=== PATIENT | female | born 1935 | race Caucasian/White ===

== ENCOUNTER → 2020-01-24 09:23 | Outpatient (CLI) | payer MEDICARE, SELFPAY ==
--- NOTE | ~2020-01-24 | MM_ITS ---
EXAMINATION: MM screening chris BI w yvette HISTORY: Screening mammogram TECHNIQUE: Craniocaudal and mediolateral oblique 3-D tomosynthesis images were obtained and synthetic 2-D images were generated. CAD analysis was submitted and interpreted. COMPARISON: 01/20/2019, 01/17/2018, 01/15/2017 bilateral digital screening mammogram examinations BREAST PARENCHYMAL COMPOSITION: There are scattered areas of fibroglandular density. FINDINGS: There is no evidence of suspicious mass, calcification, or architectural distortion to sugg est malignancy in either breast. There has been no suspicious interval change. IMPRESSION: 1. No mammographic evidence of malignancy. 2. Recommend routine screening mammography in one year. BI-RADS Category 1: Negative Reviewed, dictated and finalized at location A.
== END ==
PROVIDERS: PCP Family Medicine; Visit Provider Family Medicine
DX: Z12.31 Encounter for screening mammogram for malignant neoplasm of breast (principal)
CPT/HCPCS: 77063; 77067

== ENCOUNTER 2021-01-13 09:03 | Outpatient (CLI) | payer MEDICARE, SELFPAY | END 2021-01-13 09:04 | disposition home or self-care (01) | LOC: ANHCOVIDVC 09:03 | PROVIDERS: PCP Family Medicine | DX: Z23 Encounter for immunization (principal) | CPT/HCPCS: 0001A; 91300 ==

== ENCOUNTER 2021-02-03 09:01 | Outpatient (CLI) | payer MEDICARE, SELFPAY | END 2021-02-03 09:02 | disposition home or self-care (01) | LOC: ANHCOVIDVC 09:01 | DX: Z23 Encounter for immunization (principal) | CPT/HCPCS: 0002A; 91300 ==

== ENCOUNTER → 2021-03-10 10:09 | Outpatient (CLI) | payer MEDICARE, SELFPAY ==
--- NOTE | ~2021-03-10 | MM_ITS ---
EXAMINATION: MM screening chris BI w yvette HISTORY: Screening mammogram TECHNIQUE: Craniocaudal and mediolateral oblique 3-D tomosynthesis images were obtained and synthetic 2-D images were generated. CAD analysis was submitted and interpreted. COMPARISON: 01/24/2020, 01/20/2019, 01/17/2018, 04/2017 bilateral digital screening mammogram examinat ions BREAST PARENCHYMAL COMPOSITION: There are scattered areas of fibroglandular density. FINDINGS: There is no evidence of suspicious mass, calcification, or architectural distortion to sugg est malignancy in either breast. There has been no suspicious interval change. IMPRESSION: 1. No mammographic evidence of malignancy. 2. Recommend routine screening mammography in one year. BI-RADS Category 1: Negative Reviewed, dictated and finalized at location A.
== END ==
PROVIDERS: PCP Family Medicine; Visit Provider Family Medicine
DX: Z12.31 Encounter for screening mammogram for malignant neoplasm of breast (principal)
CPT/HCPCS: 77063; 77067

== ENCOUNTER 2021-09-01 16:18 | Outpatient (CLI) | payer MEDICARE, SELFPAY ==
--- NOTE | ~2021-09-01 | US_ITS ---
US renal BI 09/01/2021 16:49 Procedure: Realtime transabdominal ultrasound of the kidneys and bladder. Indication: Chronic kidney disease Comparison: No prior studies for comparison. Findings: Renal echotexture is normal bilaterally without hydronephrosis, contour deforming mass or r enal calculus. The right kidney measures 7.8 cm and left kidney measures 8 cm. Bladder within normal limits. Impression: 1: Unremarkable renal ultrasound. No stones, masses or hydronephrosis. Reviewed, dictated and finalized at location B. Impression: 1: Unremarkable renal ultrasound. No stones, masses or hydronephrosis.
== END 2021-09-01 16:19 | disposition home or self-care (01) ==
LOC: ANHIMG 16:31
PROVIDERS: PCP Family Medicine; Visit Provider Internal Medicine Nephrology
DX: N18.4 Chronic kidney disease, stage 4 (severe) (principal)
CPT/HCPCS: 76775

== ENCOUNTER 2021-11-24 17:12 | Inpatient (IN) | payer MEDICARE, SELFPAY ==
[2021-11-24] VITALS (35 sets, daily range): BP systolic 82–124; BP diastolic 41–105; PULSE 81–121; RESP 15–35; TEMP 36.9–39.4; O2SAT 87–97
--- NOTE | ~2021-11-24 | XR_ITS ---
EXAMINATION: XR chest 1V portable EXAM DATE: 11/26/2021 14:17 INDICATION: Shortness of breath. TECHNIQUE: Portable AP frontal chest x-ray was obtained. Comparison is made to prior examination from 12/11/2021. FINDINGS: Right hilar masslike opacity, pneumonia and/or cancer. There is patchy basilar edema or pne umonia. Mild cardiac megaly. Chronic hyperinflation. No pneumothorax. Right apical capping. The bones are osteopenic. There are bony degenerative changes. There is aortic arteriosclerosis. IMPRESSION: Moderate right, small left airspace disease, edema and/or pneumonia. Right hilar malignan cy not excludable. Follow-up to resolution to exclude underlying chronic process. Reviewed, dictated and finalized at location G. WAREHOUSE WORKER IMPRESSION: Moderate right, small left airspace disease, edema and/or pneumonia . Right hilar malignancy not excludable. Follow-up to resolution to exclude und erlying chronic process.
--- NOTE | ~2021-11-24 | XR_ITS ---
XR chest 2V DATE: 11/24/2021 17:38 INDICATION: Hypertension. Weakness. History of pulmonary embolism. TECHNIQUE: AP and lateral views COMPARISON: 04/29/2018 two-view chest FINDINGS: There is patchy consolidation in the right mid and lower lung zones and to a lesser extent left mid and lower lung zones. Minimal blunting of the right costophrenic angle is chronic. Cardiomegaly. Aortic calcification, ectasia. Right rib cage deformity suggesting prior thoracotomy. Diffuse osteopenia. Chronic prominent anterior wedging and loss of height of a lower thoracic vertebr al body. IMPRESSION: Bilateral mid and lower lung infiltrates, right greater than left, suggesting bilateral p neumonia. Aspiration is an additional consideration. Reviewed, dictated and finalized at location J. T RUNNER IMPRESSION: Bilateral mid and lower lung infiltrates, right greater than left, suggesting bilateral pneumonia. Aspiration is an additional consideration.
--- NOTE | ~2021-11-24 | US_ITS ---
EXAMINATION: US renal BI DATE: 11/25/2021 11:39 INDICATION: Acute on chronic renal failure TECHNIQUE: Multiple ultrasound grayscale images of the kidneys were obtained. COMPARISON: None. FINDINGS: The right kidney measures 8.0 x 3.8 x 4.3 cm. The left kidney measures 8.1 x 4.1 x 3.7 cm. Mild bilat eral renal cortical atrophy with normal echogenicity. There is no hydronephrosis in either kidney. N o stones identified. The partially decompressed bladder is unremarkable. IMPRESSION: 1. Likely age-related mild bilateral renal atrophy. Otherwise normal kidneys without hydronephrosis. Reviewed, dictated and finalized at location A. LLE DUPLICATING MACHINE OPERATOR IMPRESSION: 1. Likely age-related mild bilateral renal atrophy. Otherwise normal kidneys w ithout hydronephrosis.
--- NOTE | 2021-11-24 17:23 | ECG_ITS ---
Measurements Intervals [place] Rate: 99 P: 57 WA: 136 QRS: -34 QRSD: 133 T: 104 QT: 341 QTc: 439 Interpretive Statements SINUS OR ECTOPIC ATRIAL RHYTHM LEFT AXIS DEVIATION LEFT BUNDLE BRANCH BLOCK BASELINE ARTIFACT- I, II, III, AVR, AVL, V2 ABNORMAL ECG Electronically Signed On 11-24-2021 20:28:26 PRECINCT COMMANDING OFFICER by Jagjit Pan D.O.
--- NOTE | 2021-11-24 17:51 | ED.WEAKNESS ---
HPI - Weakness General Chief complaint: Weakness Stated complaint: WEAKNESS Time Seen by Provider: 11/24/21 17:24 Source: patient and RN notes reviewed Mode of arrival: EMS Limitations: no limitations History of Present Illness HPI Narrative: This is an 86 year old female with history of hypertension who presents from home for evaluation of weakness. Patient states her family called EMS because they thought she was confused. Patient is oriented x 3. She states she has been nausea and weak for 2 days. She reports poor appetite so she is not eating much. She states she is drinking fluid. She has cough but denies chest pain or shortness of breath. She also denies abdominal pain but she reports chronic diarrhea. She had a fever during triage but she is unsure if she was running a fever at home. Related Data Allergies Allergy/AdvReac Type Severity Reaction Status Date / Time calcitonin Allergy Intermediate eye itch Verified 10/19/21 09:35 and swelling mirabegron [From Myrbetriq] Allergy Intermediate swelling Verified 10/19/21 09:57 alendronate sodium Allergy Mild unknown Verified 10/19/21 09:35 Penicillins Allergy Mild hives Verified 10/19/21 09:35 risedronate sodium Allergy Mild unknown Verified 10/19/21 09:35 ciprofloxacin Allergy Unknown joint aches Verified 10/19/21 09:35 Review of Systems Review of Systems: All systems reviewed & are unremarkable except as noted in HPI and below PMFSH Past Medical History Medical History (Updated 11/24/21 @ 23:07 by Bethany Mendoza MD) Benign essential HTN HX: anticoagulation Osteoporosis Pulmonary embolism Surgical History Surgical History History of appendectomy Hx of cataract surgery S/P cholecystectomy Family History Family History Mother Cerebrovascular accident, Onset Age: 83 Patient's mother is Father Family history of coronary artery disease, Onset Age: 79 Patient's father is Social History Social History (Updated 11/24/21 @ 23:05 by Saundra Devlin NP) Social History: The patient lives home alone and she has 1 child. 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 She is . She quit smoking many years ago. She does not use any alcohol marijuana or illicit drugs. Code status full code Smoking status: Former smoker Second hand tobacco smoke exposure: No Additional smoking assessment comments: 40 to 50 years ago Alcohol intake: never Substance use: never Substance use type: does not use Gender identity (if verbalized by the patient): Female Sexual Orientation (if Verbalized by the Patient): Straight or Heterosexual Spiritual care concerns: No Exam Const: General: no acute distress and alert Orientation/consciousness: patient oriented x3 HENMT: Head: normocephalic and atraumatic Face and sinus: face symmetric Mouth: Yes lip normal and Yes dry mucous membranes Eyes: Pupils: Equal, round and reactive pupils present EOM: EOMs intact bilaterally Neck: Neck: normal visual inspection Chest: Chest palpation & inspection: normal inspection of the chest Resp: Effort & Inspection: normal respiratory effort, not labored, no retractions and not tachypneic Auscultation: rhonchi (right) and lung sounds not diminished Cardio: Rate: tachycardic Rhythm: regular rhythm Heart sounds: no murmurs GI: GI Palp: Yes Soft to palpation, No Tenderness to palpation present (GI) and No Guarding due to palpation present (GI) Auscultation: normal bowel sounds Back/Spine/Pelvis: Back: no CVA tenderness Skin: General skin exam: normal color Rashes: no rashes Neuro: General: patient oriented x3, moves all extremities and CN's II-XI intact bilaterally Psych: Mental Status: mental status grossly normal Affect: normal affect Course Reevaluation(s) Reevaluation #1:
[2021-11-24 17:57] LABS: Alveolar/Arterial O2 Gradient 69.5 mmHg; Base Excess ABG -5.5 mEq/l (+/-2.0); Carboxyhemoglobin 0.3 % THb (0-2.0); Fractional Inspired Oxygen 21 %; Methemoglobin ABG 0.1 %THb (0-1.5); Modified Allen's Test Pass; Oxygen Content ABG 14.3 %vol (16.0-22.0); Oxyhemoglobin 87.5 % THb (90.0-100.0); PCO2 ABG 25.1 mmHg (35.0-45.0); PO2 ABG 50.2 mmHg (80.0-100.0); PO2 FiO2 Ratio Arterial Blood 2.39 %; Reduced Hemoglobin 12.1 %THb (0-5.0); Site Drawn LEFT RADIAL; Total Hemoglobin 11.6 g/dL (12.0-18.0); pH ABG 7.449 (7.350-7.450)
[2021-11-24 17:58] LABS: Device ROOM AIR
[2021-11-24] MEDS: SODIUM CHLORIDE 0.9% IV 1,000 ML 999 ML IV CONT ×2 (18:26→21:25)
[2021-11-24 18:29] LABS: Basophils Absolute Auto 0.1 K/mm3 (0.0-0.1); Basophils Percent Auto 0.3 % (0.2-1.2); Eosinophils Percent Auto 0.2 % (0-4.4); Immature Granulocyte Absolute 0.09 K/mm3 (0.00-0.031); Immature Granulocyte Percent A 0.6 % (0-0.5); Lymphocytes Absolute Auto 1.07 K/mm3 (0.9-3.2); Mean Corpuscular HGB Conc 32.4 g/dl (32-36); Mean Corpuscular Hemoglobin 29.8 pg (26-34); Mean Corpuscular Volume 92.1 fl (80-100); Mean Platelet Volume 11.3 fl (7.4-10.4); Monocytes Absolute Auto 0.9 K/mm3 (0.1-0.6); Monocytes Percent Auto 6.1 % (2.6-8.5); Neutrophils Percent Auto 85.8 % (45.5-73.1); Platelet Count Result 143 k/mm3 (150-375); Red Blood Count 3.69 M/mm3 (4.2-5.4); White Blood Count 15.2 K/mm3 (4.5-10.0)
[2021-11-24 18:38] LABS: Lactic Acid Reflex 1.1 mmol/L (0.7-2.1)
[2021-11-24 18:39] LABS: Prothrombin Time 13.4 Seconds (11.1-14.7)
[2021-11-24 18:40] LABS: Alanine Aminotransferase 36 U/L (4-35); Albumin Level 3.8 g/dL (3.5-5.1); Alkaline Phosphatase 87 U/L (38-126); Anion Gap 12 mmol/L (8-16); Aspartate Amino Transferase 76 U/L (14-36); Bilirubin,Total 0.4 mg/dL (0.2-1.3); Blood Urea Nitrogen 56 mg/dL (7-17); Calcium 8.7 mg/dL (8.4-10.2); Carbon Dioxide 18 mmol/L (22-30); Chloride 101 mmol/L (98-107); Estimated CRCL calculation 13 ml/min; Estimated Glomerular Filt Rate 16; Glucose 144 mg/dL (65-110); Potassium 4.6 mmol/L (3.4-5.0); Sodium 131 mmol/L (137-145)
[2021-11-24 18:45] LABS: Add Urine Microscopic? YES; Appearance Urine Cloudy (Clear); Bacteria Urine Trace /hpf; Bilirubin Urine Negative (Negative); Blood Urine 2+ (Negative); Color Urine Yellow (Yellow); Glucose Urine UA Negative (Negative); Ketones Urine Negative (Negative); Leukocyte Esterase Ur Trace LEU/UL (Negative); Mucus Urine Rare /lpf; Nitrate Urine Negative (Negative); Protein Urine 1+ mg/dL (Negative); Specific Grav Ur 1.014 (1.001-1.035); Squamous Epithelial Cell Urine Occasional /hpf (Few); Urobilinogen Urine Negative mg/dL (<2.0)
--- NOTE | 2021-11-24 19:24 | PC.NURSE ---
Report to DB Lo She assumed care of pt. at this time.
[2021-11-24 19:38] LABS: SARS-CoV-2 RNA PCR Negative
[2021-11-24 20:25] LABS: NT Pro B Type Natriuretic Pept 6100 pg/mL (5-100)
--- NOTE | 2021-11-24 20:54 | PM.IMHP ---
H&P: HPI History of Present Illness Date/Time: 11/24/21 20:54 this is an 86-year-old female patient who resides at home alone. She has a history of hypertension. The patient has been fully vaccinated for COVID-19 along with a booster. She stated she has not been exposed to any other positive COVID people. The patient came from home to be evaluated for weakness. The family stated that the called EMS because they thought she was confused. Patient was alert orientated x3 when she arrived. The patient has not been eating well but continues to drink fluids. She has a cough but she denies any fever chills or shortness of breath. She has no abdominal pain and has chronic diarrhea. Patient was not aware that she was running a fever. Her white count is 15.2. H&H is 11.0 in 34.0. Chest x-ray was read as bilateral mid and lower lung infiltrates, right greater than left, suggesting bilateral pneumonia. Aspiration is an additional consideration. The patient has multiple allergies and was started on Levaquin. The patient has a pending COVID PCR. Patient was placed on oxygen at 2 L per nasal cannula. Her respiratory rate was initially 35 and came down 18. Patient's temperature was initially 39.4. Her creatinine today was noted to be 2.8 with a baseline of around 1.7 she has a estimated GFR 16 today. Her CRP is 29.0 and her BNP is 6100. The patient is being admitted to observation status on the date of service of 11/24/2021. Chief Complaint: Confusion Review of Systems Review of Systems: All systems reviewed & are unremarkable except as noted in HPI and below Constitutional: Constitutional: Reports as per HPI and Reports no additional constitutional complaints Eyes: Eyes: Reports as per HPI and Reports no additional eye complaints ENT: Reports system reviewed and no additional complaints, except as documented and Reports Normal hearing present Cardiovascular: Cardiovascular: Reports no additional cardiovascular complaints Respiratory: Respiratory: Reports no additional respiratory complaints and Reports no additional respiratory complaints Gastrointestinal: Gastrointestinal: Reports as per HPI and Reports no additional gastrointestinal complaints Musculoskeletal: Musculoskeletal: Reports no additional musculoskeletal complaints Integumentary/Breasts: Skin/Breast: Reports system reviewed and no additional complaints, except as docu and Reports as per HPI Neurologic: Reports system reviewed and no additional complaints, except as documented, Reports as per HPI and Reports Normal hearing present Psychiatric: Psychiatric: Reports no additional psychiatric complaints and Reports as per HPI Endocrine: Endocrine: Reports no additional endocrine complaints Hematologic/Lymphatic: Hematologic/Lymphatic: Reports no additional hematologic/lymphatic complaints Allergic/Immunologic: Allergic/Immunologic: Reports no additional allergic/immunologic complaints [facility] Past Medical History Medical History (Updated 11/24/21 @ 23:07 by Bethany Mendoza MD) Benign essential HTN HX: anticoagulation Osteoporosis Pulmonary embolism Surgical History Surgical History History of appendectomy Hx of cataract surgery S/P cholecystectomy Family History Family History Mother Cerebrovascular accident, Onset Age: 83 Patient's mother is Father Family history of coronary artery disease, Onset Age: 79 Patient's father is Social History Social History (Updated 11/24/21 @ 23:05 by Saundra Devlin NP) Social History: The patient lives home alone and she has 1 child. 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 She is . She quit smoking many years ago. She does not use any alcohol marijuana or illicit drugs. Code status full code Smoking status: Former smoker Second hand tobacco
[2021-11-24] MEDS: SODIUM CHLORIDE 0.9% IV 500 ML IV CONT (23:41)
[2021-11-25] VITALS (27 sets, daily range): BP systolic 90–124; BP diastolic 41–76; PULSE 68–178; RESP 20–23; TEMP 33.8–37.2; O2SAT 91–96; BMI 20.7
--- NOTE | 2021-11-25 | ECHO_ITS ---
Patient Info Name: Mariya Shah Age: 86 years : 1935 Gender: Female Ht: 67 in Wt: 132 lbs BSA: 1.68 m2 HR: 68 bpm BP: 120 / 51 mmHg Heart Rhythm: Sinus Rhythm Technical Quality: Fair Exam Date: 11/25/2021 12:26 PM Exam Location: [facility] Pulmonary Patient Status: Inpatient Admit Date: 11/24/2021 Staff Ordering Physician: Eric Partida MD Rubber Moulding Machine Operator: Ruba Hyde RDCS Attending Provider: Marie Hannon DO Exam Type: CA echo doppler color flow Study Info Indications - paf, sepsis Complete two-dimensional, color flow and Doppler transthoracic echocardiogram is performed. Summary 1. Complete two-dimensional, color flow and Doppler transthoracic echocardiogram is performed. 2. Normal left ventricular size with mild concentric hypertrophy and sigmoid septum of the elderly. Good left ventricular systolic function with no segmental wall motion abnormalities. Ejection fraction 60-65%. Grade 2 diastolic dysfunction is present. 3. Left atrial chamber dimension is mildly enlarged. 4. There is moderate mitral annular calcification with mild mitral valve regurgitation. 5. There is mild tricuspid valve regurgitation. 6. Mild pulmonary hypertension, estimated pulmonary arterial systolic pressure is 45 mmHg. 7. Normal sinus rhythm. Left Ventricle Left ventricular chamber dimension is normal. Left ventricular systolic function is normal, estimated at 60-65%. There is mildly increased left ventricular wall thickness. Left ventricular septal wall motion is normal. The left ventricular diastolic function is grade II diastolic dysfunction. Right Ventricle Right ventricular chamber dimension is normal. Right ventricular systolic function is normal. Left Atria Left atrial chamber dimension is mildly enlarged. Right Atria Right atrial chamber dimension is normal. Aortic Valve The aortic valve is trileaflet. There is moderate aortic valve sclerosis. There is no aortic valve stenosis. There is no aortic valve regurgitation. Pulmonic Valve The pulmonic valve is normal. There is no pulmonic valve stenosis. There is trace pulmonic regurgitation. Mitral Valve The mitral valve has thickened leaflets. There is no mitral valve stenosis. There is moderate mitral annular calcification with mild mitral valve regurgitation. The mitral valve annulus is moderately calcified. Tricuspid Valve The tricuspid valve leaflets are normal. There is no significant tricuspid valve stenosis. There is mild tricuspid valve regurgitation. Mild pulmonary hypertension, estimated pulmonary arterial systolic pressure is 45 mmHg. Pericardium/Pleural The pericardium appears normal. There is no pericardial effusion. Inferior Vena Cava Normal inferior vena cava with >50% collapse upon inspiration consistent with Empty right atrial pressure, 10 mmHg. Aorta The aortic root size at the sinus of Valsalva is normal. The prox ascending aorta size is normal. Left Ventricular Outflow Tract Name Value Normal LVOT 2D LVOT Diameter 1.8 cm LVOT Doppler LVOT Peak Gradient 8 mmHg
--- NOTE | 2021-11-25 00:29 | ADMGEN ---
This patient, Mariya Shah, was admitted to IMU Room 202-01 at 0020. Patient/family oriented to hospital policies and general routines including ID bracelet, bed and alarms, visiting hours, pain management, procedures, bathroom and other care routines, personal items, smoking policy, room service/diet, and visiting hours. Information on how to activate the Rapid Response Team has been discussed. Patient/Family are encouraged to report perceived risks to care and to ask questions if they do not understand what they are told or what they should do.
[2021-11-25] MEDS: SODIUM CHLORIDE 0.9% IV 1,000 ML 125 ML IV CONT (02:00)
--- NOTE | 2021-11-25 04:26 | PC.NURSE ---
checked on patient an hour and half after starting fluids. patient was tachypnic, with audible wheezing. patient is on 2 l nc, while laying flat, patients o2 sat dropped to mid 80's. while sitting in a 45 degree angle she was in low 90's. dr langston is aware and ordered decrease in patients fluids and a cheetah.
[2021-11-25] MEDS: SODIUM CHLORIDE 0.9% IV 1,000 ML 75 ML IV CONT (04:30)
[2021-11-25 05:30] LABS: Basophils Percent Auto 0.2 % (0.2-1.2); Hemoglobin 9.9 g/dL (12.0-15.0); Immature Granulocyte Absolute 0.08 K/mm3 (0.00-0.031); Immature Granulocyte Percent A 0.6 % (0-0.5); Immature Platelet Fraction Pct 7.6 % (0.9-11.2); Lymphocytes Absolute Auto 0.85 K/mm3 (0.9-3.2); Lymphocytes Percent Auto 6.7 % (18.3-44.2); Mean Corpuscular HGB Conc 31.9 g/dl (32-36); Mean Corpuscular Hemoglobin 29.6 pg (26-34); Mean Corpuscular Volume 92.5 fl (80-100); Mean Platelet Volume 11.3 fl (7.4-10.4); Monocytes Absolute Auto 0.6 K/mm3 (0.1-0.6); Monocytes Percent Auto 4.6 % (2.6-8.5); Neutrophils Absolute Auto 11.2 K/mm3 (1.3-6.7); Neutrophils Percent Auto 87.9 % (45.5-73.1); Platelet Count Result 121 k/mm3 (150-375); Red Blood Count 3.35 M/mm3 (4.2-5.4); Red Cell Distribution Width 13.1 % (11.5-14.5); White Blood Count 12.8 K/mm3 (4.5-10.0)
--- NOTE | 2021-11-25 05:39 | ECG_ITS ---
Measurements Intervals [place] Rate: 141 P: ME: 0 QRS: -42 QRSD: 133 T: 115 QT: 305 QTc: 468 Interpretive Statements ATRIAL FIBRILLATION WITH RAPID VENTRICULAR RESPONSE LEFT AXIS DEVIATION LEFT BUNDLE BRANCH BLOCK BASELINE ARTIFACT- I, III, AVR, AVL, AVF, V1-V6 ABNORMAL ECG Electronically Signed On 11-25-2021 8:19:55 LIDAR ANALYST by Jagjit Pan D.O.
[2021-11-25 05:45] LABS: Lactic Acid Reflex 1.5 mmol/L (0.7-2.1)
[2021-11-25 06:15] LABS: Alanine Aminotransferase 37 U/L (4-35); Alkaline Phosphatase 58 U/L (38-126); Anion Gap 12 mmol/L (8-16); Aspartate Amino Transferase 85 U/L (14-36); Bilirubin,Total 0.5 mg/dL (0.2-1.3); Blood Urea Nitrogen 54 mg/dL (7-17); Calcium 7.4 mg/dL (8.4-10.2); Carbon Dioxide 15 mmol/L (22-30); Chloride 108 mmol/L (98-107); Estimated CRCL calculation 15 ml/min; Estimated Glomerular Filt Rate 19; Glucose 106 mg/dL (65-110); Lactate Dehydrogenase 741 U/L (313-618); Magnesium 1.6 mg/dL (1.6-2.3); Potassium 4.3 mmol/L (3.4-5.0); Sodium 135 mmol/L (137-145)
[2021-11-25] MEDS: AMIODARONE 150 MG/D5W 100 ML 150 MG/100 ML BAG 600 MG IV CONT ×2 (06:32→13:25)
--- NOTE | 2021-11-25 08:32 | PM.CNCAR ---
Assessment and Plan Assessment and plan (1) Atrial fibrillation with RVR: Code(s): I48.91 - Unspecified atrial fibrillation Status: Acute Assessment and Plan: 86-year-old female with past medical history of hypertension, chronic LBBB. Patient admitted to the hospital with generalized weakness, confusion and poor appetite. She was found to have leukocytosis with left shift, pulmonary infiltrates suggestive of pneumonia. COVID-19 PCR negative. Patient had brief episodes of atrial fibrillation with RVR, received IV amiodarone with pentecostalism of sinus rhythm. Currently in sinus rhythm/sinus tachycardia. Sinus tachycardia appropriate in the setting of infection. -continue to monitor on telemetry for recurrent AFib. Patient's AFib is likely driven by underlying lung infection. -if patient has recurrent, sustained atrial fibrillation during this hospitalization, then initiate on low-dose apixaban 2.5 mg p.o. b.i.d. (dosing based on age and renal function) -outpatient ambulatory crystal mounter will be placed after infection resolves to determine if patient has recurrent AFib. For now, will continue to monitor. -check echocardiogram with Doppler to rule out any major structural heart disease. (2) Pneumonia: Code(s): J18.9 - Pneumonia, unspecified organism Status: Acute Assessment and Plan: Appropriate antibiotics as per primary team. 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 Management as per primary team. No significant volume overload at present. History of Present Illness History of Present Illness Consult date/time: 11/25/21 08:32 DATE OF CONSULT: 11/25/2021 REASON FOR CONSULT: AFib with RVR REQUESTING PHYSICIAN:Marie Hannon DO CHIEF COMPLAINT: Weakness HPI: 86-year-old female with past medical history of hypertension, chronic LBBB. Patient was brought to [facility] on 11/24/2021 with complaints of generalized weakness and confusion. She reports decreased appetite and subjective fever and chills. She denies any known prior cardiac history including clinical [place], angina, heart failure or any known arrhythmias. At baseline, she is sedentary lifestyle at home. She denies any chest pain or shortness for breath for level activity. Patient was found to have leukocytosis with left shift and renal failure. COVID-19 PCR negative. Chest x-ray showed Bilateral mid and lower lung infiltrates, right greater than left, suggesting bilateral pneumonia. Patient has been receiving antibiotics. Initial EKG on my personal evaluation showed ectopic atrial rhythm, left bundle branch block. Subsequent EKG showed atrial fibrillation with RVR, ventricular rate 141 beats per minute, LBBB. Patient received IV amiodarone with pentecostalism of sinus rhythm. BNP 6100. At the time of evaluation, patient was in sinus tachycardia with heart rate is in 100s. Previous echocardiogram from 01/31/2018 showed normal LV systolic function, grade 1 diastolic dysfunction, mild MR, AR, TR. Reason For Visit: severe sepsis, pneumonia Review of Systems Review of Systems: General: Positive for subjective fever, fatigue Psychological: Negative for anxiety, depression Ophthalmic: negative for loss of vision ENT: Negative for epistaxis, headaches Allergy and immunology: Negative for hives, nasal congestion Hematologic and lymphatic: Negative for overt blee
--- NOTE | 2021-11-25 10:50 | PM.IMPN ---
Progress Note: A&P Assessment and Plan (1) Severe sepsis: Code(s): A41.9 - Sepsis, unspecified organism; R65.20 - Severe sepsis without septic shock Status: Acute Assessment and Plan: Treated with IV fluid IV antibiotic Secondary to pneumonia Follow culture results. (2) Pneumonia: Code(s): J18.9 - Pneumonia, unspecified organism Status: Acute Assessment and Plan: Sputum culture Blood culture Repeat chest x-ray in a.m. IV antibiotics (3) Acute on chronic renal failure: Code(s): N17.9 - Acute kidney failure, unspecified; N18.9 - Chronic kidney disease, unspecified Status: Acute Assessment and Plan: Continue with IV fluids and will do a renal ultrasound. Patient could be dehydrated or could be related to her sepsis. Added IV bicarb on 11/25/2021 if no improvement will get Nephrology valve (4) Suspected COVID-19 virus infection: Code(s): Z20.822 - Contact with and (suspected) exposure to COVID-19 Status: Acute Assessment and Plan: COVID-19 was ruled out (5) Benign essential HTN: Code(s): I10 - Essential (primary) hypertension Status: Acute Assessment and Plan: Hold blood pressure medicine at this time as the patient is hypotensive. Also she is in acute on chronic renal failure. (6) Atrial fibrillation with RVR: Code(s): I48.91 - Unspecified atrial fibrillation Status: Acute Assessment and Plan: cardiology consult treat underlying sepsis Subjective Date/time seen: 11/25/21 10:50 Interval history: 86 years old male with past medical history of hypertension osteoporosis pulmonary embolism on chronic anticoagulation presented to the hospital with generalized weakness cough and shortness of breath was found to have sepsis pneumonia also patient has AFib with RVR cardiology was consulted patient had acute and of chronic renal failure admitted to the hospital for further evaluation and treatment Patient feels weak she is short of breath on oxygen Patient denies fever headache chest I am seeing the patient for shortness of breath Exam Narrative: Alert Chest bilateral crackles decreased air entry bilateral Abdomen nontender nondistended CVS S1 + S2 Lower negative extremity edema Objective Data Vital Signs Vital Signs: Vital Signs - 24 hr 11/24/21 17:19 11/24/21 17:20 11/24/21 17:30 Temperature 103.0 F H Pulse Rate 121 H 105 H 88 Respiratory Rate 20 22 H Blood Pressure 113/51 L 113/51 L Pulse Oximetry 87 L 91 11/24/21 17:38 11/24/21 17:39 11/24/21 17:45 Temperature Pulse Rate 111 H 107 H 101 H Respiratory Rate 21 H 25 H 25 H Blood Pressure 124/105 H Pulse Oximetry 92 93 91 11/24/21 18:00 11/24/21 18:02 11/24/21 18:15 Temperature Pulse Rate 107 H 98 98 Respiratory Rate 27 H 33 H 30 H Blood Pressure 105/84 Pulse Oximetry 92 93 97 11/24/21 18:30 11/24/21 18:32 11/24/21 18:38 Temperature Pulse Rate 103 H 103 H 97 Respiratory Rate 22 H 20 19 Blood Pressure 118/53 L 118/53 L Pulse Oximetry 96 91 96 11/24/21 18:45 11/24/21 19:00 11/24/21 19:02 Temperature Pulse Rate 97 85 92 Respiratory Rate 20 21 H 22 H Blood Pressure 89/45 L Pulse Oximetry 94 96 96 11/24/21 19:07 11/24/21 19:15 11/24/21 19:18 Temperature 100.0 F H Pulse Rate 104 H 90 90 Respiratory Rate 18 23 H 17 Blood Pressure 104/52 L 104/52 L Pulse Oximetry 93 93 94 11/24/21 19:30 11/24/21 19:31 11/24/21 19:45 Temperature Pulse Rate 88 88 87 Respiratory Rate 18 20 19 Blood Pressure 92/41 L Pulse Oximetry 92 93 95 11/24/21 20:00 11/24/21 20:01 11/24/21 20:15 Temperature Pulse Rate 86 86 83 Respiratory Rate 22 H 18 18 Blood Pressure 92/43 L Pulse Oximetry 95 95 95 11/24/21 20:30 11/24/21 20:31 11/24/21 20:45 Temperature Pulse Rate 84 85 82 Respiratory Rate 17 15 16 Blood Pressure 92/45 L Pulse Oximetry 95 96 97 11/24/21 21:00 11/24/21 21:01 01
[2021-11-25 11:54] LABS: Lactic Acid Reflex 0.8 mmol/L (0.7-2.1)
[2021-11-25] MEDS: METOPROLOL SUCCINATE EXT REL 25 MG TABCR PO (11:55)
--- NOTE | 2021-11-25 13:10 | ECG_ITS ---
Measurements Intervals [place] Rate: 151 P: [place]: 0 QRS: -35 QRSD: 126 T: 131 QT: 291 QTc: 462 Interpretive Statements ATRIAL FIBRILLATION WITH RAPID VENTRICULAR RESPONSE LEFT AXIS DEVIATION LEFT BUNDLE BRANCH BLOCK BASELINE ARTIFACT- I, II, III, AVR, AVL, AVF, V4-V6 ABNORMAL ECG Electronically Signed On 11-25-2021 14:11:15 TRAINING AND DEVELOPMENT MANAGER by Jagjit Pan D.O.
--- NOTE | 2021-11-25 13:32 | PM.EVENT ---
Event Note Event Note Event Note: Noted that patient was in Afib RVR on tele monitor, rate 160's - 180's. Proceeded to patient bedside, patient diaphoretic and short of breath. Ordered amio bolus now and drip per protocol. EKG obtained and confirmed AF RVR, LBBB, LAD. IV lopressor also available for persistent tachycardia if BP tolerates. Labs being obtained, will review results when available.
--- NOTE | 2021-11-25 13:32 | PCOTNOTE ---
Attempted to see pt. for occupational therapy evaluation. Pt. HR is currently not safe for participation, per nurse. Pt. may tolerate later today.
[2021-11-25] MEDS: AMIODARONE 360 MG/D5W 200 ML 360 MG/200 ML BAG 33.33 MG IV CONT (13:33)
--- NOTE | 2021-11-25 15:28 | PCPTNOTE ---
Per nurse Keen, pt's HR is too high to participate in skilled therapy at this date and to try again tomorrow.
[2021-11-25] MEDS: SODIUM BICARBONATE 8.4% 150 MEQ in DEXTROSE 5% 1,000 ML 950 ML 100 MEQ IV CONT (15:47)
[2021-11-25] MEDS: METOPROLOL TARTRATE INJ 5 MG/5 ML VIAL IV PUSH (16:34)
[2021-11-25] MEDS: AMIODARONE 360 MG/D5W 200 ML 360 MG/200 ML BAG 16.67 MG IV CONT (19:55)
[2021-11-26] VITALS (23 sets, daily range): BP systolic 97–112; BP diastolic 49–58; PULSE 79–130; RESP 22–24; TEMP 35.9–37.1; O2SAT 89–96
--- NOTE | 2021-11-26 02:22 | ECG_ITS ---
Measurements Intervals [place] Rate: 151 P: [place]: 0 QRS: -35 QRSD: 126 T: 131 QT: 291 QTc: 462 Interpretive Statements ATRIAL FIBRILLATION WITH RAPID VENTRICULAR RESPONSE LEFT AXIS DEVIATION LEFT BUNDLE BRANCH BLOCK BASELINE ARTIFACT- I, II, III, AVR, AVL, AVF, V4-V6 ABNORMAL ECG Electronically Signed On 11-26-2021 14:05:37 INSTALLER TECHNICIAN by Jagjit Pan D.O.
[2021-11-26] MEDS: SODIUM BICARBONATE 8.4% 150 MEQ in DEXTROSE 5% 1,000 ML 950 ML 100 MEQ IV CONT ×2 (02:38→17:01)
--- NOTE | 2021-11-26 02:58 | ECG_ITS ---
Measurements Intervals [place] Rate: 87 P: 90 [place]: 161 QRS: -33 QRSD: 140 T: 105 QT: 395 QTc: 477 Interpretive Statements SINUS RHYTHM LEFT AXIS DEVIATION LEFT BUNDLE BRANCH BLOCK BASELINE ARTIFACT- I ABNORMAL ECG Electronically Signed On 11-26-2021 14:06:13 POULTRY SLAUGHTERER by Jagjit Pan D.O.
[2021-11-26] MEDS: AMIODARONE 360 MG/D5W 200 ML 360 MG/200 ML BAG 16.67 MG IV CONT ×2 (07:24→22:12)
--- NOTE | 2021-11-26 07:47 | PCPTNOTE ---
Attempted PT evaluation this date however RN requested to hold for today due to increased HR at rest.
[2021-11-26] MEDS: METOPROLOL SUCCINATE EXT REL 25 MG TABCR PO (08:50)
--- NOTE | 2021-11-26 09:28 | PM.IMPN ---
Progress Note: A&P Assessment and Plan (1) Severe sepsis: Code(s): A41.9 - Sepsis, unspecified organism; R65.20 - Severe sepsis without septic shock Status: Acute Assessment and Plan: Treated with IV fluid IV antibiotic Secondary to pneumonia Follow culture results. Follow CBC and CMP from today (2) Pneumonia: Code(s): J18.9 - Pneumonia, unspecified organism Status: Acute Assessment and Plan: Sputum culture Blood culture Pending repeat chest x-ray IV antibiotics (3) Acute on chronic renal failure: Code(s): N17.9 - Acute kidney failure, unspecified; N18.9 - Chronic kidney disease, unspecified Status: Acute Assessment and Plan: Continue with IV fluids a. Patient could be dehydrated or could be related to her sepsis. Added IV bicarb on 11/25/2021 if no improvement will get Nephrology evaluation (4) Suspected COVID-19 virus infection: Code(s): Z20.822 - Contact with and (suspected) exposure to COVID-19 Status: Acute Assessment and Plan: COVID-19 was ruled out (5) Benign essential HTN: Code(s): I10 - Essential (primary) hypertension Status: Acute Assessment and Plan: Hold blood pressure medicine at this time as the patient is hypotensive. Also she is in acute on chronic renal failure. (6) Atrial fibrillation with RVR: Code(s): I48.91 - Unspecified atrial fibrillation Status: Acute Assessment and Plan: cardiology consult treat underlying sepsis Uncontrolled amiodarone drip Subjective Date/time seen: 11/26/21 09:28 Interval history: 86 years old male with past medical history of hypertension osteoporosis pulmonary embolism on chronic anticoagulation presented to the hospital with generalized weakness cough and shortness of breath was found to have sepsis pneumonia also patient has AFib with RVR cardiology was consulted patient had acute and of chronic renal failure admitted to the hospital for further evaluation and treatment On 11/26/2021 patient developed episodes of AFib with RVR started on amiodarone drip Patient feels weak she is short of breath on oxygen Patient denies fever headache chest I am seeing the patient for shortness of breath Exam Narrative: Alert Chest bilateral crackles decreased air entry bilateral Abdomen nontender nondistended CVS S1 + S2 Lower negative extremity edema Objective Data Vital Signs Vital Signs: Vital Signs - 24 hr 11/25/21 10:00 11/25/21 11:55 11/25/21 12:00 Temperature 92.8 F L Pulse Rate 128 H 102 H 108 H Respiratory Rate 20 Blood Pressure 115/41 L Pulse Oximetry 96 11/25/21 13:00 11/25/21 13:25 11/25/21 13:30 Temperature Pulse Rate 178 H Respiratory Rate Blood Pressure 112/62 Pulse Oximetry 92 11/25/21 13:33 11/25/21 14:00 11/25/21 16:00 Temperature 98.7 F Pulse Rate 128 H 127 H 118 H Respiratory Rate 22 H Blood Pressure 124/76 Pulse Oximetry 91 11/25/21 16:34 11/25/21 18:00 11/25/21 19:38 Temperature 98.8 F Pulse Rate 158 H 126 H 120 H Respiratory Rate 20 Blood Pressure 91/57 L Pulse Oximetry 91 11/25/21 19:55 11/25/21 20:00 11/25/21 22:00 Temperature Pulse Rate 121 H 118 H 104 H Respiratory Rate Blood Pressure Pulse Oximetry 92 11/26/21 00:00 11/26/21 01:08 11/26/21 02:00 Temperature 98.6 F Pulse Rate 107 H 96 85 Respiratory Rate 23 H Blood Pressure 103/49 L Pulse Oximetry 92 11/26/21 03:09 11/26/21 04:00 11/26/21 05:37 Temperature 98.7 F Pulse Rate 86 81 80 Respiratory Rate 22 H Blood Pressure 110/56 L Pulse Oximetry 95 93 11/26/21 05:45 11/26/21 06:42 11/26/21 07:24 Temperature Pulse Rate 106 H Respiratory Rate Blood Pressure Pulse Oximetry 89 L 96 11/26/21 08:16 11/26/21 08:50 Temperature 96.9 F L Pulse Rate 114 H 129 H Respiratory Rate 24 H Blood Pressure 111/57 L Pulse Oximetry 92 Intake/Output Intake
[2021-11-26 10:11] LABS: Basophils Percent Auto 0.4 % (0.2-1.2); Eosinophils Percent Auto 0.1 % (0-4.4); Hematocrit 32.7 % (37.0-47.0); Immature Granulocyte Absolute 0.13 K/mm3 (0.00-0.031); Immature Granulocyte Percent A 1.2 % (0-0.5); Lymphocytes Absolute Auto 0.89 K/mm3 (0.9-3.2); Lymphocytes Percent Auto 7.9 % (18.3-44.2); Mean Corpuscular HGB Conc 33.6 g/dl (32-36); Mean Corpuscular Hemoglobin 29.7 pg (26-34); Mean Corpuscular Volume 88.4 fl (80-100); Monocytes Absolute Auto 0.5 K/mm3 (0.1-0.6); Monocytes Percent Auto 4.2 % (2.6-8.5); Neutrophils Absolute Auto 9.8 K/mm3 (1.3-6.7); Neutrophils Percent Auto 86.2 % (45.5-73.1); Platelet Count Result 162 k/mm3 (150-375); Red Cell Distribution Width 13.2 % (11.5-14.5); White Blood Count 11.3 K/mm3 (4.5-10.0)
[2021-11-26 10:26] LABS: Alanine Aminotransferase 45 U/L (4-35); Albumin Level 2.8 g/dL (3.5-5.1); Alkaline Phosphatase 78 U/L (38-126); Anion Gap 11 mmol/L (8-16); Aspartate Amino Transferase 88 U/L (14-36); Bilirubin,Total 0.2 mg/dL (0.2-1.3); Blood Urea Nitrogen 56 mg/dL (7-17); Calcium 7.6 mg/dL (8.4-10.2); Carbon Dioxide 21 mmol/L (22-30); Chloride 98 mmol/L (98-107); Estimated CRCL calculation 15 ml/min; Estimated Glomerular Filt Rate 19; Glucose 149 mg/dL (65-110); Magnesium 1.6 mg/dL (1.6-2.3); Potassium 3.3 mmol/L (3.4-5.0); Sodium 130 mmol/L (137-145)
[2021-11-26] MEDS: levoFLOXacin 500 MG/D5W 100 ML 500 MG/100 ML BAG 66.67 MG IVPB (12:01)
--- NOTE | 2021-11-26 19:15 | PM.PNCARD ---
Progress Note: A&P Assessment and Plan (1) Paroxysmal atrial fibrillation: Code(s): I48.0 - Paroxysmal atrial fibrillation Status: Acute Assessment and Plan: Continues to have paroxysmal atrial fibrillation but less symptomatic. Echo showed normal systolic function; does have diastolic dysfunction. Getting IV fluids 100 cc an hour; concern she may get volume overloaded at this point. 3700 cc's in today. Consider reducing IV fluids. Continue IV amiodarone; if no further episodes will switch to p.o. tomorrow. Start Eliquis 2.5 mg b.i.d., reviewed with patient (2) Pneumonia: Code(s): J18.9 - Pneumonia, unspecified organism Status: Acute Assessment and Plan: O2 needs have increased but patient is feeling better. Treatment per hospitalist. (3) Hypokalemia: Code(s): E87.6 - Hypokalemia Status: Acute Assessment and Plan: Will supplement. 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 Blood pressure on the low sign. Subjective Date/time seen: 11/26/21 19:15 Interval history: Follow-up for new onset PAF, RVR Patient was admitted with pneumonia, COVID negative. She has been having episodes of paroxysmal atrial fibrillation. She has chronic kidney disease as well. Date of service 11/26/2021: Yesterday she had more AFib RVR and felt terrible; she was started on amiodarone drip and IV Lopressor. She converted to sinus rhythm. This morning she went back in AFib RVR for about 5 hours and has converted to sinus rhythm. Patient says she feels better, less coughing and shortness of breath. Systolic blood pressure 97-111 mmHg. O2 needs have increased from 2 liters/minute to 5 liters/minute nasal cannula. Remains on amiodarone drip at 0.5 milligrams/minute. Echo and chest x-ray as below. Review of Systems Constitutional: Constitutional: Reports fatigue and Reports weakness Eyes: Eyes: Reports no additional eye complaints ENT: Denies epistaxis Cardiovascular: Cardiovascular: Denies chest pain, Denies pedal edema, Denies lightheadedness and Denies palpitations Respiratory: Respiratory: Reports cough, Reports dyspnea and Reports dyspnea on exertion Gastrointestinal: Gastrointestinal: Denies abdominal pain Comments: Anorexia. Denies a history of GI bleeding. Genitourinary: Genitourinary: Denies hematuria Musculoskeletal: Musculoskeletal: Denies back pain Integumentary/Breasts: Skin/Breast: Denies rash Neurologic: Denies confusion Psychiatric: Psychiatric: Denies behavioral changes Exam Narrative: Older lady in bed, frequent dry cough, no respiratory distress, alert, conversant and pleasant. Const: General: comfortable and no acute distress HENMT: General nose exam: no epistaxis Eyes: EOM: EOMs intact bilaterally Neck: Neck: supple Resp: Effort & Inspection: normal respiratory effort Auscultation: crackles and rhonchi Other: Course rales and rhonchi particular in the right lung half way up, left lung is fairly clear Cardio: Rate: regular rate Rhythm: regular rhythm Heart sounds: no murmurs GI: GI Palp: Yes Soft to palpation and No Tenderness to palpation present (GI) Skin: General skin exam: no rashes or lesions noted Neuro: Cognition (Neuro): normal cognition Speech: n
[2021-11-26] MEDS: APIXABAN 2.5 MG TABLET PO (22:13)
[2021-11-26] MEDS: POTASSIUM CHLORIDE 20 MEQ TABLET PO (22:13)
[2021-11-27] VITALS (19 sets, daily range): BP systolic 111–129; BP diastolic 48–60; PULSE 72–106; RESP 18–24; TEMP 36.3–37.2; O2SAT 92–96
[2021-11-27 05:16] LABS: Basophils Percent Auto 0.2 % (0.2-1.2); Eosinophils Percent Auto 0.3 % (0-4.4); Hematocrit 27.9 % (37.0-47.0); Immature Granulocyte Absolute 0.11 K/mm3 (0.00-0.031); Immature Granulocyte Percent A 1.3 % (0-0.5); Lymphocytes Absolute Auto 0.84 K/mm3 (0.9-3.2); Lymphocytes Percent Auto 9.7 % (18.3-44.2); Mean Corpuscular HGB Conc 35.8 g/dl (32-36); Mean Corpuscular Hemoglobin 30.3 pg (26-34); Mean Corpuscular Volume 84.5 fl (80-100); Mean Platelet Volume 12.3 fl (7.4-10.4); Monocytes Absolute Auto 0.5 K/mm3 (0.1-0.6); Monocytes Percent Auto 5.9 % (2.6-8.5); Neutrophils Absolute Auto 7.2 K/mm3 (1.3-6.7); Neutrophils Percent Auto 82.6 % (45.5-73.1); Platelet Count Result 158 k/mm3 (150-375); Red Cell Distribution Width 12.3 % (11.5-14.5); White Blood Count 8.7 K/mm3 (4.5-10.0)
[2021-11-27 07:39] LABS: Alanine Aminotransferase 43 U/L (4-35); Albumin Level 2.6 g/dL (3.5-5.1); Alkaline Phosphatase 80 U/L (38-126); Anion Gap 7 mmol/L (8-16); Aspartate Amino Transferase 76 U/L (14-36); Bilirubin,Total 0.3 mg/dL (0.2-1.3); Blood Urea Nitrogen 56 mg/dL (7-17); Calcium 7.7 mg/dL (8.4-10.2); Carbon Dioxide 28 mmol/L (22-30); Chloride 94 mmol/L (98-107); Estimated CRCL calculation 15 ml/min; Estimated Glomerular Filt Rate 19; Glucose 117 mg/dL (65-110); Magnesium 1.6 mg/dL (1.6-2.3); Potassium 3.1 mmol/L (3.4-5.0); Sodium 129 mmol/L (137-145)
--- NOTE | 2021-11-27 09:13 | PM.IMPN ---
Progress Note: A&P Assessment and Plan (1) Severe sepsis: Code(s): A41.9 - Sepsis, unspecified organism; R65.20 - Severe sepsis without septic shock Status: Acute Assessment and Plan: Treated with IV fluid DC IV fluid patient is showing sign of fluid overload IV antibiotic DC IV vancomycin DC IV cefepime 11/27/2021 continue Levaquin Secondary to pneumonia Follow culture results. (2) Pneumonia: Code(s): J18.9 - Pneumonia, unspecified organism Status: Acute Assessment and Plan: As above Sputum culture Blood culture Pending repeat chest x-ray IV antibiotics (3) Acute on chronic renal failure: Code(s): N17.9 - Acute kidney failure, unspecified; N18.9 - Chronic kidney disease, unspecified Status: Acute Assessment and Plan: Continue with IV fluids a. Patient could be dehydrated or could be related to her sepsis. Added IV bicarb on 11/25/2021 Nephrology evaluation DC bicarb drip patient is developing signs of fluid overload (4) Suspected COVID-19 virus infection: Code(s): Z20.822 - Contact with and (suspected) exposure to COVID-19 Status: Acute Assessment and Plan: COVID-19 was ruled out (5) Benign essential HTN: Code(s): I10 - Essential (primary) hypertension Status: Acute Assessment and Plan: Hold blood pressure medicine at this time as the patient is hypotensive. Also she is in acute on chronic renal failure. (6) Atrial fibrillation with RVR: Code(s): I48.91 - Unspecified atrial fibrillation Status: Acute Assessment and Plan: cardiology consult treat underlying sepsis Status post amiodarone drip plan to switch to oral amiodarone on 11/27/2021 continue metoprolol pending cardiology final recommendation Subjective Date/time seen: 11/27/21 09:13 Interval history: 86 years old male with past medical history of hypertension osteoporosis pulmonary embolism on chronic anticoagulation presented to the hospital with generalized weakness cough and shortness of breath was found to have sepsis pneumonia also patient has AFib with RVR cardiology was consulted patient had acute and of chronic renal failure admitted to the hospital for further evaluation and treatment On 11/26/2021 patient developed episodes of AFib with RVR started on amiodarone drip Shortness of breath has significantly improved Patient has lower extremity edema IV fluid was DC the on 11/27/2021 Patient denies fever headache chest I am seeing the patient for shortness of breath Exam Narrative: Alert Chest bilateral crackles decreased air entry bilateral Abdomen nontender nondistended CVS S1 + S2 Lower negative extremity edema Objective Data Vital Signs Vital Signs: Vital Signs - 24 hr 11/26/21 10:00 11/26/21 12:00 11/26/21 12:16 Temperature 97.4 F L Pulse Rate 115 H 105 H 126 H Respiratory Rate 22 H Blood Pressure 99/52 L Pulse Oximetry 93 93 11/26/21 14:00 11/26/21 16:00 11/26/21 16:41 Temperature 96.6 F L Pulse Rate 87 85 88 Respiratory Rate 24 H Blood Pressure 97/54 L Pulse Oximetry 94 93 11/26/21 18:00 11/26/21 19:53 11/26/21 20:00 Temperature 97.6 F Pulse Rate 79 85 84 Respiratory Rate 23 H Blood Pressure 112/58 L Pulse Oximetry 96 11/26/21 22:00 11/26/21 22:12 11/27/21 00:00 Temperature 97.9 F Pulse Rate 89 87 80 Respiratory Rate 23 H Blood Pressure 117/49 L Pulse Oximetry 93 93 11/27/21 02:00 11/27/21 03:52 11/27/21 04:00 Temperature 98.9 F Pulse Rate 104 H 80 82 Respiratory Rate 24 H Blood Pressure 117/53 L Pulse Oximetry 95 95 11/27/21 06:00 11/27/21 08:22 Temperature 97.6 F Pulse Rate 88 103 H Respiratory Rate 18 Blood Pressure 125/52 L Pulse Oximetry 94 Intake/Output Intake/Output: Intake & Output 11/24/21 11/25/21 11/26/21 11/27/21 23:59 23:59 23:59 23:59 Intake Total 2250 920 4020 850 Output Total 300 900 600 250 Balance 1950 20 3420 60
[2021-11-27] MEDS: POTASSIUM CHLORIDE 20 MEQ TABLET 40 MEQ PO (09:46)
[2021-11-27] MEDS: METOPROLOL SUCCINATE EXT REL 25 MG TABCR PO (09:47)
[2021-11-27] MEDS: APIXABAN 2.5 MG TABLET PO ×2 (09:47→20:12)
--- NOTE | 2021-11-27 10:40 | PM.PNCARD ---
Progress Note: A&P Assessment and Plan (1) Paroxysmal atrial fibrillation: Code(s): I48.0 - Paroxysmal atrial fibrillation Status: Acute Assessment and Plan: New onset paroxysmal atrial fibrillation in the setting of acute pneumonia Echo showed normal systolic function; does have diastolic dysfunction. No further episodes of AFib for 24 hours; will change IV amiodarone to 400 mg p.o. b.i.d.. Check EKG in a.m.; she is also taking Levaquin which can contribute to QT prolongation. Continue Eliquis 2.5 mg b.i.d.. Continue metoprolol succinate 25 mg daily Patient is becoming a little anemic so will continue to follow H&H daily. No obvious bleeding. (2) Pneumonia: Code(s): J18.9 - Pneumonia, unspecified organism Status: Acute Assessment and Plan: O2 needs have increased but patient is feeling better. Treatment per hospitalist. (3) Hypokalemia: Code(s): E87.6 - Hypokalemia Status: Acute Assessment and Plan: Will supplement. 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 IV fluids are being discontinued. Subjective Date/time seen: 11/27/21 10:40 Interval history: Follow-up for new onset PAF, RVR Patient was admitted with pneumonia, COVID negative. She has been having episodes of paroxysmal atrial fibrillation. She has chronic kidney disease as well. Date of service 11/26/2021: Yesterday she had more AFib RVR and felt terrible; she was started on amiodarone drip and IV Lopressor. She converted to sinus rhythm. This morning she went back in AFib RVR for about 5 hours and has converted to sinus rhythm. Patient says she feels better, less coughing and shortness of breath. Systolic blood pressure 97-111 mmHg. O2 needs have increased from 2 liters/minute to 5 liters/minute nasal cannula. Remains on amiodarone drip at 0.5 milligrams/minute. Echo = nml LV fxn. Date of service 11/27/2021: Feeling much better, no shortness of breath when she moved from the bed to the chair. On 5 L nasal cannula. Telemetry shows patient has maintain NSR since yesterday. Had 4,000 cc's in yesterday IV. Review of Systems Constitutional: Constitutional: Reports fatigue and Denies weakness Eyes: Eyes: Reports no additional eye complaints ENT: Denies epistaxis Cardiovascular: Cardiovascular: Denies chest pain, Denies pedal edema, Denies lightheadedness, Denies palpitations, Reports dyspnea and Reports dyspnea on exertion Respiratory: Respiratory: Reports cough, Denies dyspnea and Denies dyspnea on exertion Gastrointestinal: Gastrointestinal: Denies abdominal pain, Denies melena and Denies hematochezia Comments: No bowel movement Genitourinary: Genitourinary: Denies hematuria Musculoskeletal: Musculoskeletal: Denies back pain Integumentary/Breasts: Skin/Breast: Denies rash Neurologic: Denies behavioral changes, Denies confusion and Reports weakness Psychiatric: Psychiatric: Denies behavioral changes and Denies confusion Endocrine: Endocrine: Reports fatigue and Denies palpitations Exam Narrative: Older lady up in chair, occasional dry cough, no respiratory distress, alert, conversant and pleasant. Const: General: comfortable and no acute distress; No confusion Orientation/consci
--- NOTE | 2021-11-27 10:45 | PM.CNNEP ---
Assessment and Plan Assessment and plan (1) Chronic kidney disease, stage 4 (severe): Code(s): N18.4 - Chronic kidney disease, stage 4 (severe) Status: Acute Assessment and Plan: the patient has chronic kidney disease stage 4. Her baseline creatinine is around 1.7-1.8 and her GFR runs in the high 20s. This is most likely due to her hypertension (2) Acute kidney injury: Code(s): N17.9 - Acute kidney failure, unspecified Status: Acute Assessment and Plan: The patient has acute kidney injury. She has pneumonia and so could have ATN from this. her blood pressure was also low on admission consistent with dehydration and pneumonia. I do not think she is dehydrated anymore although she was on admission. But the creatinine did not improve with fluid so I agree with discontinuing fluids. I am going to give her a couple of doses of diuretics because she is a bit dyspneic. Other causes include rhabdomyolysis, so we can check a CPK. Allergic interstitial nephritis would be unlikely could she is not on any new medications. Glomerulonephritis would be unlikely in this clinical scenario. I will get a renal ultrasound, and a CPK. Will give a couple of doses of diuretics and follow the patient. (3) Pneumonia: Code(s): J18.9 - Pneumonia, unspecified organism Status: Acute Assessment and Plan: The patient is on Levaquin. Temperature and white cell count are both better than on admission. (4) Hyperkalemia: Code(s): E87.5 - Hyperkalemia Status: Acute Assessment and Plan: resolved off of nonsteroidal anti-inflammatory agents (5) Benign essential HTN: Code(s): I10 - Essential (primary) hypertension Status: Acute Assessment and Plan: Blood pressure is still under good control. She is on metoprolol but her Felodipine and lisinopril have been held because of her low blood pressure. History of Present Illness Reason for Consult Consult date: 11/27/21 Chief Complaint Chief complaint: severe sepsis, pneumonia History of Present Illness Narrative: Mariya is a very pleasant 86-year-old lady who has multiple medical problems including chronic kidney disease stage IV with a baseline creatinine of around 1.6-1.8, hyperkalemia in the past which was due to Advil and has not been a problem since, hypertension, pulmonary embolism, osteoporosis, who came to the hospital because of confusion. She was seen in the emergency room. Her creatinine was higher than it usually is. She also had infiltrates on a chest x-ray. She was felt to have pneumonia and dehydration. She was admitted to the hospital. She was given IV fluids and antibiotics. Her confusion cleared and her pneumonia improved however she developed volume overload and her creatinine did not improve so renal consultation was requested. In addition her sodium level was low. The patient has had a cough for the last few days. No fevers at home. She is vaccinated and boosted. Her COVID test was negative. The patient has not been taking any more nonsteroidal anti-inflammatory agents. She has not started any new medications as an outpatient. She was not eating very well before admission but was drinking fluid. Review of Systems Constitutional: Constitutional: Reports no additional constitutional complaints Eyes: Eyes: Reports no additional eye complaints ENT: Reports system reviewed and no additional complaints, except as documented Cardiovascular: Cardiovascular: Reports no additional cardiovascular complaints Respiratory: Respiratory: Reports no additional respiratory complaints Gastrointestinal: Gastrointestinal: Reports no additional gastrointestinal complaints Genitourinary: Genitourinary: Reports no additional female genitourinary complaints Musculoskeletal: Musculoskeletal: Reports no additional musculoskeletal complaints Integumentary/Breasts: Skin/Breast:
[2021-11-27] MEDS: AMIODARONE HCL 200 MG TABLET 400 MG PO ×2 (11:21→16:45)
[2021-11-27 11:24] LABS: Creatine Kinase 78 U/L (30-135)
[2021-11-28] VITALS (16 sets, daily range): BP systolic 107–132; BP diastolic 47–69; PULSE 74–87; RESP 14–20; TEMP 35.9–36.6; O2SAT 93–96
[2021-11-28 05:06] LABS: Basophils Percent Auto 0.5 % (0.2-1.2); Eosinophils Absolute Auto 0.1 K/mm3 (0-0.3); Eosinophils Percent Auto 1.2 % (0-4.4); Hematocrit 29.2 % (37.0-47.0); Hemoglobin 10.1 g/dL (12.0-15.0); Immature Granulocyte Absolute 0.16 K/mm3 (0.00-0.031); Immature Granulocyte Percent A 1.9 % (0-0.5); Lymphocytes Percent Auto 17.9 % (18.3-44.2); Mean Corpuscular HGB Conc 34.6 g/dl (32-36); Mean Corpuscular Hemoglobin 29.4 pg (26-34); Mean Corpuscular Volume 84.9 fl (80-100); Mean Platelet Volume 12.2 fl (7.4-10.4); Monocytes Absolute Auto 0.6 K/mm3 (0.1-0.6); Monocytes Percent Auto 7.6 % (2.6-8.5); Neutrophils Absolute Auto 5.9 K/mm3 (1.3-6.7); Neutrophils Percent Auto 70.9 % (45.5-73.1); Platelet Count Result 181 k/mm3 (150-375); Red Blood Count 3.44 M/mm3 (4.2-5.4); Red Cell Distribution Width 12.4 % (11.5-14.5); White Blood Count 8.4 K/mm3 (4.5-10.0)
[2021-11-28 05:15] LABS: Alanine Aminotransferase 39 U/L (4-35); Albumin Level 2.6 g/dL (3.5-5.1); Alkaline Phosphatase 84 U/L (38-126); Anion Gap 7 mmol/L (8-16); Aspartate Amino Transferase 70 U/L (14-36); Bilirubin,Total 0.3 mg/dL (0.2-1.3); Blood Urea Nitrogen 59 mg/dL (7-17); Calcium 8.1 mg/dL (8.4-10.2); Carbon Dioxide 29 mmol/L (22-30); Chloride 96 mmol/L (98-107); Estimated CRCL calculation 14 ml/min; Estimated Glomerular Filt Rate 18; Glucose 103 mg/dL (65-110); Magnesium 1.7 mg/dL (1.6-2.3); Potassium 3.8 mmol/L (3.4-5.0); Sodium 132 mmol/L (137-145)
--- NOTE | 2021-11-28 08:00 | ECG_ITS ---
Measurements Intervals [place] Rate: 80 P: 80 HI: 174 QRS: -20 QRSD: 144 T: 82 QT: 430 QTc: 496 Interpretive Statements SINUS RHYTHM LEFT BUNDLE BRANCH BLOCK BASELINE ARTIFACT- V4-V5 ABNORMAL ECG Electronically Signed On 11-28-2021 15:23:40 [employer]ATCH COMMAND[employer] by Jagjit Pan D.O.
[2021-11-28] MEDS: AMIODARONE HCL 200 MG TABLET 400 MG PO ×2 (08:32→17:01)
[2021-11-28] MEDS: METOPROLOL SUCCINATE EXT REL 25 MG TABCR PO (08:33)
[2021-11-28] MEDS: APIXABAN 2.5 MG TABLET PO ×2 (08:33→20:26)
--- NOTE | 2021-11-28 09:57 | PM.PNCARD ---
Progress Note: A&P Assessment and Plan (1) Paroxysmal atrial fibrillation: Code(s): I48.0 - Paroxysmal atrial fibrillation Status: Acute Assessment and Plan: New onset paroxysmal atrial fibrillation in the setting of acute pneumonia Echo showed normal systolic function; does have diastolic dysfunction. No further episodes of AFib for 24 hours; continue oral amiodarone 400 mg p.o. b.i.d.. Continue Eliquis 2.5 mg b.i.d.. Continue metoprolol succinate 25 mg daily Patient is becoming a little anemic so will continue to follow H&H daily. No obvious bleeding. (2) Pneumonia: Code(s): J18.9 - Pneumonia, unspecified organism Status: Acute Assessment and Plan: O2 needs have increased but patient is feeling better. Treatment per hospitalist. (3) Hypokalemia: Code(s): E87.6 - Hypokalemia Status: Acute Assessment and Plan: Will supplement. 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 (5) Hypomagnesemia: Code(s): E83.42 - Hypomagnesemia Status: Acute Assessment and Plan: Will replace with Magnesium 2 g IV x1 Subjective Date/time seen: 11/28/21 09:57 Interval history: Follow-up for new onset PAF, RVR Patient was admitted with pneumonia, COVID negative. She has been having episodes of paroxysmal atrial fibrillation. She has chronic kidney disease as well. Date of service 11/26/2021: Yesterday she had more AFib RVR and felt terrible; she was started on amiodarone drip and IV Lopressor. She converted to sinus rhythm. This morning she went back in AFib RVR for about 5 hours and has converted to sinus rhythm. Patient says she feels better, less coughing and shortness of breath. Systolic blood pressure 97-111 mmHg. O2 needs have increased from 2 liters/minute to 5 liters/minute nasal cannula. Remains on amiodarone drip at 0.5 milligrams/minute. Echo = nml LV fxn. Date of service 11/27/2021: Feeling much better, no shortness of breath when she moved from the bed to the chair. On 5 L nasal cannula. Telemetry shows patient has maintain NSR since yesterday. Had 4,000 cc's in yesterday IV. Date of service 11/28/2021: Continues to feel better. No chest pain. No shortness of breath. Feels better now than she has since admission. Review of Systems Constitutional: Constitutional: Reports fatigue and Denies weakness Eyes: Eyes: Reports no additional eye complaints ENT: Denies epistaxis Cardiovascular: Cardiovascular: Denies chest pain, Denies pedal edema, Denies lightheadedness, Denies palpitations, Denies dyspnea and Denies dyspnea on exertion Respiratory: Respiratory: Reports cough, Denies dyspnea and Denies dyspnea on exertion Gastrointestinal: Gastrointestinal: Denies abdominal pain, Denies melena and Denies hematochezia Genitourinary: Genitourinary: Denies hematuria Musculoskeletal: Musculoskeletal: Denies back pain Integumentary/Breasts: Skin/Breast: Denies rash Neurologic: Denies behavioral changes, Denies confusion and Denies weakness Psychiatric: Psychiatric: Denies behavioral changes and Denies confusion Endocrine: Endocrine: Reports fatigue and Denies palpitations Hematologic/Lymphatic: Hematologic/Lymphatic: Denies easy bruising
--- NOTE | 2021-11-28 11:05 | PM.IMPN ---
Progress Note: A&P Assessment and Plan (1) Severe sepsis: Code(s): A41.9 - Sepsis, unspecified organism; R65.20 - Severe sepsis without septic shock Status: Acute Assessment and Plan: Treated with IV fluid DC IV fluid patient is showing sign of fluid overload IV antibiotic DC IV vancomycin DC IV cefepime 11/27/2021 continue Levaquin Secondary to pneumonia Follow culture results. Continue to wean off oxygen (2) Pneumonia: Code(s): J18.9 - Pneumonia, unspecified organism Status: Acute Assessment and Plan: As above Sputum culture Blood culture Improved IV antibiotics (3) Acute on chronic renal failure: Code(s): N17.9 - Acute kidney failure, unspecified; N18.9 - Chronic kidney disease, unspecified Status: Acute Assessment and Plan: Continue with IV fluids a. Patient could be dehydrated or could be related to her sepsis. Added IV bicarb on 11/25/2021 Nephrology evaluation DC bicarb drip patient is developing signs of fluid overload (4) Suspected COVID-19 virus infection: Code(s): Z20.822 - Contact with and (suspected) exposure to COVID-19 Status: Acute Assessment and Plan: COVID-19 was ruled out (5) Benign essential HTN: Code(s): I10 - Essential (primary) hypertension Status: Acute Assessment and Plan: Hold blood pressure medicine at this time as the patient is hypotensive. Also she is in acute on chronic renal failure. (6) Atrial fibrillation with RVR: Code(s): I48.91 - Unspecified atrial fibrillation Status: Acute Assessment and Plan: cardiology consult treat underlying sepsis Status post amiodarone drip switch to oral amiodarone on 11/27/2021 continue metoprolol Continue to wean off oxygen anticipate discharge on Sunday home with home health patient lives alone with her lives son next door Subjective Date/time seen: 11/28/21 11:05 Interval history: 86 years old male with past medical history of hypertension osteoporosis pulmonary embolism on chronic anticoagulation presented to the hospital with generalized weakness cough and shortness of breath was found to have sepsis pneumonia also patient has AFib with RVR cardiology was consulted patient had acute and of chronic renal failure admitted to the hospital for further evaluation and treatment On 11/26/2021 patient developed episodes of AFib with RVR started on amiodarone drip Shortness of breath has significantly improved Patient has lower extremity edema IV fluid was DC the on 11/27/2021 AFib is under control currently on metoprolol and Eliquis cardiology follow-up Wean off oxygen Expect discharge on Sunday Patient denies fever headache chest I am seeing the patient for shortness of breath Exam Narrative: Alert Chest bilateral crackles decreased air entry bilateral Abdomen nontender nondistended CVS S1 + S2 Lower negative extremity edema Objective Data Vital Signs Vital Signs: Vital Signs - 24 hr 11/27/21 11:21 11/27/21 12:00 11/27/21 13:17 Temperature 97.4 F L Pulse Rate 84 87 81 Respiratory Rate 20 Blood Pressure 122/53 L Pulse Oximetry 95 96 11/27/21 14:00 11/27/21 16:00 11/27/21 16:45 Temperature Pulse Rate 83 85 81 Respiratory Rate Blood Pressure Pulse Oximetry 92 11/27/21 17:09 11/27/21 18:00 11/27/21 20:00 Temperature 98.0 F 98.5 F Pulse Rate 82 106 H 89 Respiratory Rate 22 H 20 Blood Pressure 129/60 111/48 L Pulse Oximetry 94 94 11/27/21 22:00 11/28/21 00:00 11/28/21 02:00 Temperature 96.6 F L Pulse Rate 77 86 74 Respiratory Rate 14 Blood Pressure 116/47 L Pulse Oximetry 93 11/28/21 04:00 11/28/21 06:00 11/28/21 08:32 Temperature 97.1 F L Pulse Rate 75 87 84 Respiratory Rate 16 Blood Pressure 122/53 L Pulse Oximetry 93 11/28/21 08:33 11/28/21 08:50 Temperature 97.6 F Pulse Rate 86 85 Respiratory Rate 20 Blood Pressure 121/50 L Pulse Oximetry
[2021-11-28] MEDS: MAGNESIUM SULF 2 GM/WATER 50ML 2 GM/50 ML BAG IVPB (11:41)
[2021-11-28] MEDS: levoFLOXacin 500 MG/D5W 100 ML 500 MG/100 ML BAG 66.67 MG IVPB (11:42)
--- NOTE | 2021-11-28 12:36 | PC.NURSE ---
Report given to Paulina [address] [place] [address].
--- NOTE | 2021-11-28 13:40 | PC.NURSE ---
This patient, Mariya Shah, was transferred to [facility] on 11/28/21 at 1340. Personal belongings sent with patient. Report given to Paulina. Appropriate documentation sent with patient.
--- NOTE | 2021-11-28 17:25 | PM.PNNEP ---
Progress Note: A&P Assessment and Plan (1) Chronic kidney disease, stage 4 (severe): Code(s): N18.4 - Chronic kidney disease, stage 4 (severe) Status: Acute Assessment and Plan: the patient has chronic kidney disease stage 4. Her baseline creatinine is around 1.7-1.8 and her GFR runs in the high 20s. This is most likely due to her hypertension (2) Acute kidney injury: Code(s): N17.9 - Acute kidney failure, unspecified Status: Acute Assessment and Plan: The patient has acute kidney injury. Renal ultrasound shows bilateral small kidneys. CPK is normal. she probably has ATN from pneumonia and hypotension. Her pneumonia seems better. Her blood pressure is better. (3) Pneumonia: Code(s): J18.9 - Pneumonia, unspecified organism Status: Acute Assessment and Plan: The patient is on Levaquin. Temperature and white cell count doing well (4) Hyperkalemia: Code(s): E87.5 - Hyperkalemia Status: Acute Assessment and Plan: resolved off of nonsteroidal anti-inflammatory agents (5) Benign essential HTN: Code(s): I10 - Essential (primary) hypertension Status: Acute Assessment and Plan: Blood pressure is still under good control. She is on metoprolol alone. Subjective Date/time seen: 11/28/21 17:25 Interval history: Patient feels better today. Her cough is better less short of breath. But still has some residual dyspnea. Review of Systems Cardiovascular: Cardiovascular: Reports no additional cardiovascular complaints Respiratory: Respiratory: Reports no additional respiratory complaints Gastrointestinal: Gastrointestinal: Reports no additional gastrointestinal complaints Genitourinary: Genitourinary: Reports no additional female genitourinary complaints Exam Narrative: WDWN in NAD skin no rash head ncat lungs Coarse breath sounds bilaterally. Right greater than left cor reg no rub abd BS+ nontender and soft ext no edema. Objective Data Vital Signs Vital Signs: Vital Signs - 24 hr 11/27/21 18:00 11/27/21 20:00 11/27/21 22:00 Temperature 36.9 C Pulse Rate 106 H 89 77 Respiratory Rate 20 Blood Pressure 111/48 L Pulse Oximetry 94 11/28/21 00:00 11/28/21 02:00 11/28/21 04:00 Temperature 35.9 C L 36.2 C L Pulse Rate 86 74 75 Respiratory Rate 14 16 Blood Pressure 116/47 L 122/53 L Pulse Oximetry 93 93 11/28/21 06:00 11/28/21 08:00 11/28/21 08:32 Temperature Pulse Rate 87 86 84 Respiratory Rate 20 Blood Pressure Pulse Oximetry 94 11/28/21 08:33 11/28/21 08:50 11/28/21 10:00 Temperature 36.4 C Pulse Rate 86 85 82 Respiratory Rate 20 Blood Pressure 121/50 L Pulse Oximetry 94 11/28/21 12:00 11/28/21 12:39 11/28/21 14:12 Temperature 36.3 C L 36.3 C L Pulse Rate 86 85 83 Respiratory Rate 20 16 Blood Pressure 107/47 L 124/49 L Pulse Oximetry 95 94 11/28/21 16:00 Temperature Pulse Rate 75 Respiratory Rate Blood Pressure Pulse Oximetry Intake/Output Intake/Output: Intake & Output 11/25/21 11/26/21 11/27/21 11/28/21 23:59 23:59 23:59 23:59 Intake Total 920 4020 1970 680 Output Total 900 600 600 Balance 20 3420 1370 680 Meds/Results Medications: Active Medications Generic Name Dose Route Start Last Admin Trade Name Freq PRN Reason Stop Dose Admin Albuterol 2 puff 11/24/21 23:06 Albuterol Sulfate (*Sp) Aerosol 1 Puff INHALATION Q6HRT PRN Shortness Of Breath Amiodarone HCl 400 mg 11/27/21 11:00 11/28/21 17:01 Amiodarone Hcl 200 Mg Tablet PO 400 mg BID HARJINDER Administration Apixaban 2.5 mg 11/26/21 21:00 11/28/21 08:33 Apixaban 2.5 Mg Tablet PO 2.5 mg Q12HR HARJINDER Administration Levofloxacin/Dextrose 500 mg in 100 mls @ 66.667 mls/hr 11/26/21 12:00 11/28/21 11:42 Levaquin 500 Mg/D5w 100 Ml IVPB 66.67 mls/hr Q48H HARJINDER Administration Metoprolol Succi
[2021-11-28 20:11] LABS: Sodium Urine Random 18 meq/L
[2021-11-28 20:14] LABS: Creatinine Urine 35.4 mg/dL; Total Protein Urine Random 26 mg/dL; Ur Ttl Prot Creatinine Ratio 0.73 mg/mg (0-0.20)
[2021-11-29] VITALS (15 sets, daily range): BP systolic 104–138; BP diastolic 44–59; PULSE 69–90; RESP 16–18; TEMP 36.1–36.9; O2SAT 90–97
[2021-11-29 05:44] LABS: Basophils Absolute Auto 0.1 K/mm3 (0.0-0.1); Basophils Percent Auto 0.7 % (0.2-1.2); Eosinophils Absolute Auto 0.2 K/mm3 (0-0.3); Eosinophils Percent Auto 2.2 % (0-4.4); Hematocrit 28.7 % (37.0-47.0); Hemoglobin 9.8 g/dL (12.0-15.0); Immature Granulocyte Absolute 0.13 K/mm3 (0.00-0.031); Immature Granulocyte Percent A 1.8 % (0-0.5); Lymphocytes Percent Auto 17.7 % (18.3-44.2); Mean Corpuscular HGB Conc 34.1 g/dl (32-36); Mean Corpuscular Hemoglobin 29.3 pg (26-34); Mean Corpuscular Volume 85.7 fl (80-100); Mean Platelet Volume 11.3 fl (7.4-10.4); Monocytes Absolute Auto 0.7 K/mm3 (0.1-0.6); Neutrophils Absolute Auto 5.1 K/mm3 (1.3-6.7); Neutrophils Percent Auto 68.6 % (45.5-73.1); Platelet Count Result 216 k/mm3 (150-375); Red Blood Count 3.35 M/mm3 (4.2-5.4); White Blood Count 7.4 K/mm3 (4.5-10.0)
[2021-11-29 06:10] LABS: Alanine Aminotransferase 41 U/L (4-35); Albumin Level 2.8 g/dL (3.5-5.1); Alkaline Phosphatase 70 U/L (38-126); Anion Gap 9 mmol/L (8-16); Aspartate Amino Transferase 83 U/L (14-36); Bilirubin,Total 0.6 mg/dL (0.2-1.3); Blood Urea Nitrogen 60 mg/dL (7-17); Calcium 8.2 mg/dL (8.4-10.2); Carbon Dioxide 30 mmol/L (22-30); Chloride 98 mmol/L (98-107); Estimated CRCL calculation 14 ml/min; Estimated Glomerular Filt Rate 18; Glucose 100 mg/dL (65-110); Magnesium 2.3 mg/dL (1.6-2.3); Potassium 4.8 mmol/L (3.4-5.0); Sodium 137 mmol/L (137-145)
--- NOTE | 2021-11-29 07:48 | PM.PNNEP ---
Progress Note: A&P Assessment and Plan (1) Chronic kidney disease, stage 4 (severe): Code(s): N18.4 - Chronic kidney disease, stage 4 (severe) Status: Acute Assessment and Plan: the patient has chronic kidney disease stage 4. Her baseline creatinine is around 1.7-1.8 and her GFR runs in the high 20s. This is most likely due to her hypertension (2) Acute kidney injury: Code(s): N17.9 - Acute kidney failure, unspecified Status: Acute Assessment and Plan: The patient has acute kidney injury. Renal ultrasound shows bilateral small kidneys. CPK is normal. she probably has ATN from pneumonia and hypotension. Her pneumonia seems better. Her blood pressure is better. Her creatinine is stable. She is making some urine. (3) Pneumonia: Code(s): J18.9 - Pneumonia, unspecified organism Status: Acute Assessment and Plan: The patient is on Levaquin. Temperature and white cell count doing well (4) Hyperkalemia: Code(s): E87.5 - Hyperkalemia Status: Acute Assessment and Plan: resolved off of nonsteroidal anti-inflammatory agents (5) Benign essential HTN: Code(s): I10 - Essential (primary) hypertension Status: Acute Assessment and Plan: Blood pressure is still under good control. She is on metoprolol alone. Subjective Date/time seen: 11/29/21 07:48 Interval history: Patient feels better today. Mildly short of breath. Exam Narrative: WDWN in NAD skin no rash head ncat lungs Coarse breath sounds bilaterally. Right greater than left cor reg no rub or gallop abd BS+ nontender and soft ext 1+ edema. Objective Data Vital Signs Vital Signs: Vital Signs - 24 hr 11/28/21 08:00 11/28/21 08:32 11/28/21 08:33 Temperature Pulse Rate 86 84 86 Respiratory Rate 20 Blood Pressure Pulse Oximetry 94 11/28/21 08:50 11/28/21 10:00 11/28/21 12:00 Temperature 36.4 C Pulse Rate 85 82 86 Respiratory Rate 20 Blood Pressure 121/50 L Pulse Oximetry 94 11/28/21 12:39 11/28/21 14:12 11/28/21 16:00 Temperature 36.3 C L 36.3 C L Pulse Rate 85 83 75 Respiratory Rate 20 16 Blood Pressure 107/47 L 124/49 L Pulse Oximetry 95 94 11/28/21 18:00 11/28/21 20:00 11/28/21 22:00 Temperature 36.6 C 36.3 C L Pulse Rate 81 79 77 Respiratory Rate 16 18 Blood Pressure 132/69 110/48 L Pulse Oximetry 95 96 96 11/29/21 00:00 11/29/21 02:00 11/29/21 04:00 Temperature 36.2 C L Pulse Rate 69 80 70 Respiratory Rate 16 Blood Pressure 138/56 L Pulse Oximetry 94 11/29/21 06:00 Temperature 36.1 C L Pulse Rate 78 Respiratory Rate 18 Blood Pressure 126/49 L Pulse Oximetry 96 Intake/Output Intake/Output: Intake & Output 11/26/21 11/27/21 11/28/21 11/29/21 23:59 23:59 23:59 23:59 Intake Total 4020 1970 950 600 Output Total 600 600 150 500 Balance 3420 1370 800 100 Meds/Results Medications: Active Medications Generic Name Dose Route Start Last Admin Trade Name Freq PRN Reason Stop Dose Admin Albuterol 2 puff 11/24/21 23:06 Albuterol Sulfate (*Sp) Aerosol 1 Puff INHALATION Q6HRT PRN Shortness Of Breath Amiodarone HCl 400 mg 11/27/21 11:00 11/28/21 17:01 Amiodarone Hcl 200 Mg Tablet PO 400 mg BID HARJINDER Administration Apixaban 2.5 mg 11/26/21 21:00 11/28/21 20:26 Apixaban 2.5 Mg Tablet PO 2.5 mg Q12HR HARJINDER Administration Levofloxacin/Dextrose 500 mg in 100 mls @ 66.667 mls/hr 11/26/21 12:00 11/28/21 11:42 Levaquin 500 Mg/D5w 100 Ml IVPB 66.67 mls/hr Q48H HARJINDER Administration Metoprolol Succinate 25 mg 11/25/21 09:00 11/28/21 08:33 Metoprolol Succinate Ext Rel 25 Mg Tabcr PO 25 mg DAILY HARJINDER Administration Metoprolol Tartrate 5 mg 11/25/21 11:01 11/25/21 16:34 Metoprolol Tartrate Inj 5 Mg/5 Ml Vial IV PUSH 5 mg Q6H PRN Administration Tachycardia Radiology Results: ITS Imp
[2021-11-29] MEDS: AMIODARONE HCL 200 MG TABLET 400 MG PO ×2 (08:13→17:14)
[2021-11-29] MEDS: APIXABAN 2.5 MG TABLET PO ×2 (08:14→22:10)
[2021-11-29] MEDS: METOPROLOL SUCCINATE EXT REL 25 MG TABCR PO (08:14)
--- NOTE | 2021-11-29 12:07 | PM.PNCARD ---
Progress Note: A&P Assessment and Plan (1) Paroxysmal atrial fibrillation: Code(s): I48.0 - Paroxysmal atrial fibrillation Status: Acute Assessment and Plan: New onset paroxysmal atrial fibrillation in the setting of acute pneumonia Echo showed normal systolic function; does have diastolic dysfunction. Maintaining sinus rhythm on amiodarone. Continue amiodarone 400 mg p.o. b.i.d. Will decrease to 400mg daily at discharge. Continue Eliquis 2.5 mg b.i.d.. Continue metoprolol succinate 25 mg daily Patient is becoming a little anemic so will continue to follow H&H daily. No obvious bleeding. (2) Pneumonia: Code(s): J18.9 - Pneumonia, unspecified organism Status: Acute Assessment and Plan: O2 needs have increased but patient is feeling better. Treatment per hospitalist. 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 (5) Hypomagnesemia: Code(s): E83.42 - Hypomagnesemia Status: Acute Assessment and Plan: Mag 2.3 today. Subjective Date/time seen: 11/29/21 12:07 Interval history: Follow-up for new onset PAF, RVR Patient was admitted with pneumonia, COVID negative. She has been having episodes of paroxysmal atrial fibrillation. She has chronic kidney disease as well. Date of service 11/26/2021: Yesterday she had more AFib RVR and felt terrible; she was started on amiodarone drip and IV Lopressor. She converted to sinus rhythm. This morning she went back in AFib RVR for about 5 hours and has converted to sinus rhythm. Patient says she feels better, less coughing and shortness of breath. Systolic blood pressure 97-111 mmHg. O2 needs have increased from 2 liters/minute to 5 liters/minute nasal cannula. Remains on amiodarone drip at 0.5 milligrams/minute. Echo = nml LV fxn. Date of service 11/27/2021: Feeling much better, no shortness of breath when she moved from the bed to the chair. On 5 L nasal cannula. Telemetry shows patient has maintain NSR since yesterday. Had 4,000 cc's in yesterday IV. Date of service 11/28/2021: Continues to feel better. No chest pain. No shortness of breath. Feels better now than she has since admission. Date of service 11/29/2021: Feels good. Breathing is just fine. She's up to the chair and has ambulated around the room without issue. No chest pain, no palpitations. Review of Systems Constitutional: Constitutional: Reports fatigue and Denies weakness Eyes: Eyes: Reports no additional eye complaints ENT: Denies epistaxis Cardiovascular: Cardiovascular: Denies chest pain, Denies pedal edema, Denies lightheadedness, Denies palpitations, Denies dyspnea and Denies dyspnea on exertion Respiratory: Respiratory: Reports cough, Denies dyspnea and Denies dyspnea on exertion Gastrointestinal: Gastrointestinal: Denies abdominal pain, Denies melena and Denies hematochezia Genitourinary: Genitourinary: Denies hematuria Musculoskeletal: Musculoskeletal: Denies back pain Integumentary/Breasts: Skin/Breast: Denies rash Neurologic: Denies behavioral changes, Denies confusion and Denies weakness Psychiatric: Psychiatric: Denies
--- NOTE | 2021-11-29 15:51 | HOMEO2EVAL ---
Evaluation was performed at [facility] Home Oxygen Evaluation RC: Home Oxygen (O2) Evaluation Start: 11/29/21 11:04 Freq: ONCE Status: Active Protocol: RPE Activity Type Activity Date Activity User E-Sign Co-Sign Detail Recorded Client Recorded Date Recorded By Document 11/29/21 14:30 TASIA [id number] 11/29/21 15:51 TASIA Document 11/29/21 14:35 TASIA [email or web address] 11/29/21 15:51 TASIA Document 11/29/21 14:45 TASIA [email or web address] 11/29/21 15:51 TASIA 11/29/21 11/29/21 11/29/21 14:30 14:35 14:45 Home O2 Evaluation Test Phase Resting Exercise Resting Oxygen Delivery Room Air Room Air Room Air Pulse Oximetry (90-100 %) 93 90 94 Home Oxygen Evaluation Comments ENCOURAGE DEEP BREATHING TO INCREASE SATS. NO HOME O2 NEEDED Treatment Charges O2 Evaluation - Inpatient
--- NOTE | 2021-11-29 15:51 | PCRCNOTE ---
HOME OE EVAL DONE, NO HOME O2 NEEDED, ENCOURAGE DEEP BREATHING TO KEEP SATS >90
--- NOTE | 2021-11-29 16:52 | PM.IMPN ---
Progress Note: A&P Assessment and Plan (1) Severe sepsis: Code(s): A41.9 - Sepsis, unspecified organism; R65.20 - Severe sepsis without septic shock Status: Acute Assessment and Plan: Treated with IV fluid DC IV fluid patient is showing sign of fluid overload IV antibiotic DC IV vancomycin DC IV cefepime 11/27/2021 continue Levaquin Secondary to pneumonia Follow culture results. Continue to wean off oxygen patient remains clinically stable blood culture no growth so far (2) Pneumonia: Code(s): J18.9 - Pneumonia, unspecified organism Status: Acute Assessment and Plan: As above Sputum culture Blood culture Improved IV antibiotics (3) Acute on chronic renal failure: Code(s): N17.9 - Acute kidney failure, unspecified; N18.9 - Chronic kidney disease, unspecified Status: Acute Assessment and Plan: Continue with IV fluids a. Patient could be dehydrated or could be related to her sepsis. Added IV bicarb on 11/25/2021 Nephrology evaluation DC bicarb drip patient is developing signs of fluid overload (4) Suspected COVID-19 virus infection: Code(s): Z20.822 - Contact with and (suspected) exposure to COVID-19 Status: Acute Assessment and Plan: COVID-19 was ruled out (5) Benign essential HTN: Code(s): I10 - Essential (primary) hypertension Status: Acute Assessment and Plan: Hold blood pressure medicine at this time as the patient is hypotensive. Also she is in acute on chronic renal failure. (6) Atrial fibrillation with RVR: Code(s): I48.91 - Unspecified atrial fibrillation Status: Acute Assessment and Plan: cardiology consult treat underlying sepsis Status post amiodarone drip switch to oral amiodarone on 11/27/2021 continue metoprolol Continue to wean off oxygen anticipate discharge on Sunday home with home health patient lives alone with her lives son next door Subjective Date/time seen: 11/29/21 16:52 patient states feeling better not a short of breath as when she arrived, denies cough fever or chills, Review of Systems Review of Systems: All systems reviewed & are unremarkable except as noted in HPI and below Exam Narrative: Alert Chest bilateral crackles decreased air entry bilateral Abdomen nontender nondistended CVS S1 + S2 Lower negative extremity edema Objective Data Vital Signs Vital Signs: Vital Signs - 24 hr 11/28/21 18:00 11/28/21 20:00 11/28/21 22:00 Temperature 97.9 F 97.4 F L Pulse Rate 81 79 77 Respiratory Rate 16 18 Blood Pressure 132/69 110/48 L Pulse Oximetry 95 96 96 11/29/21 00:00 11/29/21 02:00 11/29/21 04:00 Temperature 97.2 F L Pulse Rate 69 80 70 Respiratory Rate 16 Blood Pressure 138/56 L Pulse Oximetry 94 11/29/21 06:00 11/29/21 08:00 11/29/21 10:05 Temperature 97.0 F L 98.4 F Pulse Rate 78 86 81 Respiratory Rate 18 16 Blood Pressure 126/49 L 113/45 L Pulse Oximetry 96 96 11/29/21 12:00 11/29/21 13:30 11/29/21 14:30 Temperature 97.6 F Pulse Rate 77 78 Respiratory Rate 16 Blood Pressure 105/44 L Pulse Oximetry 97 93 11/29/21 14:35 11/29/21 14:45 11/29/21 16:00 Temperature Pulse Rate 81 Respiratory Rate Blood Pressure Pulse Oximetry 90 94 Intake/Output Intake/Output: Intake & Output 11/26/21 11/27/21 11/28/21 11/29/21 23:59 23:59 23:59 23:59 Intake Total 4020 1970 950 960 Output Total 600 600 150 500 Balance 3420 1370 800 460 Meds/Results Medications: Active Medications Generic Name Dose Route Start Last Admin Trade Name Freq PRN Reason Stop Dose Admin Albuterol 2 puff 11/24/21 23:06 Albuterol Sulfate (*Sp) Aerosol 1 Puff INHALATION Q6HRT PRN Shortness Of Breath Amiodarone HCl 400 mg 11/27/21 11:00 11/29/21 08:13 Amiodarone Hcl 200 Mg Tablet PO 400 mg BID HARJINDER Administration Apixaban 2.5 mg 11/26/21 21:00 11/29/21 08:14 Apixaban 2.5 Mg Tab
[2021-11-30] VITALS (8 sets, daily range): BP systolic 111–131; BP diastolic 49–60; PULSE 65–96; RESP 14–16; TEMP 36.5–36.8; O2SAT 91–94
[2021-11-30 05:29] LABS: Basophils Percent Auto 0.5 % (0.2-1.2); Eosinophils Absolute Auto 0.2 K/mm3 (0-0.3); Eosinophils Percent Auto 2.5 % (0-4.4); Hemoglobin 9.9 g/dL (12.0-15.0); Immature Granulocyte Absolute 0.19 K/mm3 (0.00-0.031); Immature Granulocyte Percent A 2.2 % (0-0.5); Lymphocytes Percent Auto 23.6 % (18.3-44.2); Mean Corpuscular HGB Conc 34.1 g/dl (32-36); Mean Corpuscular Hemoglobin 29.4 pg (26-34); Mean Corpuscular Volume 86.1 fl (80-100); Monocytes Absolute Auto 0.7 K/mm3 (0.1-0.6); Monocytes Percent Auto 8.3 % (2.6-8.5); Neutrophils Absolute Auto 5.3 K/mm3 (1.3-6.7); Neutrophils Percent Auto 62.9 % (45.5-73.1); Platelet Count Result 260 k/mm3 (150-375); Red Blood Count 3.37 M/mm3 (4.2-5.4); Red Cell Distribution Width 13.1 % (11.5-14.5); White Blood Count 8.5 K/mm3 (4.5-10.0)
[2021-11-30 05:52] LABS: Albumin Level 2.8 g/dL (3.5-5.1); Anion Gap 9 mmol/L (8-16); Blood Urea Nitrogen 62 mg/dL (7-17); Calcium 8.6 mg/dL (8.4-10.2); Carbon Dioxide 32 mmol/L (22-30); Chloride 98 mmol/L (98-107); Estimated CRCL calculation 13 ml/min; Estimated Glomerular Filt Rate 17; Glucose 100 mg/dL (65-110); Magnesium 2.2 mg/dL (1.6-2.3); Potassium 4.3 mmol/L (3.4-5.0); Sodium 139 mmol/L (137-145)
[2021-11-30] MEDS: AMIODARONE HCL 200 MG TABLET 400 MG PO (08:44)
[2021-11-30] MEDS: APIXABAN 2.5 MG TABLET PO (08:45)
[2021-11-30] MEDS: METOPROLOL SUCCINATE EXT REL 25 MG TABCR PO (08:45)
--- NOTE | 2021-11-30 10:19 | ECG_ITS ---
Measurements Intervals [place] Rate: 78 P: -3 MT: 142 QRS: -16 QRSD: 144 T: 85 QT: 412 QTc: 471 Interpretive Statements SINUS RHYTHM LEFT BUNDLE BRANCH BLOCK ABNORMAL ECG Electronically Signed On 11-30-2021 11:39:44 MONITOR WORKER by Jagjit Pan D.O.
--- NOTE | 2021-11-30 10:20 | PM.DS ---
DS: Admitting Diagnosis Discharge Date 11/30/2021 Admitting Diagnosis confusion DS: Discharge Diagnosis Discharge Diagnosis (1) Severe sepsis: Code(s): A41.9 - Sepsis, unspecified organism; R65.20 - Severe sepsis without septic shock Status: Acute Assessment and Plan: Treated with IV fluid DC IV fluid patient is showing sign of fluid overload IV antibiotic DC IV vancomycin DC IV cefepime 11/27/2021 continue Levaquin Secondary to pneumonia Follow culture results. Continue to wean off oxygen patient remains clinically stable blood culture no growth so far (2) Pneumonia: Code(s): J18.9 - Pneumonia, unspecified organism Status: Acute Assessment and Plan: As above Sputum culture Blood culture Improved IV antibiotics (3) Acute on chronic renal failure: Code(s): N17.9 - Acute kidney failure, unspecified; N18.9 - Chronic kidney disease, unspecified Status: Acute Assessment and Plan: Continue with IV fluids a. Patient could be dehydrated or could be related to her sepsis. Added IV bicarb on 11/25/2021 Nephrology evaluation DC bicarb drip patient is developing signs of fluid overload (4) Suspected COVID-19 virus infection: Code(s): Z20.822 - Contact with and (suspected) exposure to COVID-19 Status: Acute Assessment and Plan: COVID-19 was ruled out (5) Benign essential HTN: Code(s): I10 - Essential (primary) hypertension Status: Acute Assessment and Plan: Hold blood pressure medicine at this time as the patient is hypotensive. Also she is in acute on chronic renal failure. (6) Atrial fibrillation with RVR: Code(s): I48.91 - Unspecified atrial fibrillation Status: Acute Assessment and Plan: cardiology consult treat underlying sepsis Status post amiodarone drip switch to oral amiodarone on 11/27/2021 continue metoprolol Continue to wean off oxygen anticipate discharge on Sunday home with home health patient lives alone with her lives son next door DS: Summary Hospital Course Reason for hospitalization: this is an 86-year-old female patient who resides at home alone. She has a history of hypertension. The patient has been fully vaccinated for COVID-19 along with a booster. She stated she has not been exposed to any other positive COVID people. The patient came from home to be evaluated for weakness. The family stated that the called EMS because they thought she was confused. Patient was alert orientated x3 when she arrived. The patient has not been eating well but continues to drink fluids. She has a cough but she denies any fever chills or shortness of breath. She has no abdominal pain and has chronic diarrhea. Patient was not aware that she was running a fever. Her white count is 15.2. H&H is 11.0 in 34.0. Chest x-ray was read as bilateral mid and lower lung infiltrates, right greater than left, suggesting bilateral pneumonia. Aspiration is an additional consideration. The patient has multiple allergies and was started on Levaquin. The patient has a pending COVID PCR. Patient was placed on oxygen at 2 L per nasal cannula. Her respiratory rate was initially 35 and came down 18. Patient's temperature was initially 39.4. Her creatinine today was noted to be 2.8 with a baseline of around 1.7 she has a estimated GFR 16 today. Her CRP is 29.0 and her BNP is 6100. The patient is being admitted to observation status on the date of service of 11/24/2021. Chief Complaint: Confusion Hospital Course: patient remains clinically stable, patient with paroxysmal atrial fibrillation patient was seen by Cardiology started the patient on amiodarone 400 mg q.day, maintaining sinus rhythm, cardiac echo showed normal systolic function with dysfunctional diastolic function, in terms of pneumonia patient now on room air repeat chest x-ray showed improved, will discharge the patient today Status at Discharge Functional sta
--- NOTE | 2021-11-30 10:23 | PM.PNCARD ---
Progress Note: A&P Assessment and Plan (1) Paroxysmal atrial fibrillation: Code(s): I48.0 - Paroxysmal atrial fibrillation Status: Acute Assessment and Plan: New onset paroxysmal atrial fibrillation in the setting of acute pneumonia Echo showed normal systolic function; does have diastolic dysfunction. Maintaining sinus rhythm on amiodarone. Will decrease to 400mg daily for discharge. Continue Eliquis 2.5 mg b.i.d. Continue metoprolol succinate 25 mg daily Patient is becoming a little anemic so will continue to follow H&H daily. No obvious bleeding. (2) Pneumonia: Code(s): J18.9 - Pneumonia, unspecified organism Status: Acute Assessment and Plan: Improving. On room air now. 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 (5) Hypomagnesemia: Code(s): E83.42 - Hypomagnesemia Status: Acute Assessment and Plan: WNL today Subjective Date/time seen: 11/30/21 10:23 Interval history: Follow-up for new onset PAF, RVR Patient was admitted with pneumonia, COVID negative. She has been having episodes of paroxysmal atrial fibrillation. She has chronic kidney disease as well. Date of service 11/26/2021: Yesterday she had more AFib RVR and felt terrible; she was started on amiodarone drip and IV Lopressor. She converted to sinus rhythm. This morning she went back in AFib RVR for about 5 hours and has converted to sinus rhythm. Patient says she feels better, less coughing and shortness of breath. Systolic blood pressure 97-111 mmHg. O2 needs have increased from 2 liters/minute to 5 liters/minute nasal cannula. Remains on amiodarone drip at 0.5 milligrams/minute. Echo = nml LV fxn. Date of service 11/27/2021: Feeling much better, no shortness of breath when she moved from the bed to the chair. On 5 L nasal cannula. Telemetry shows patient has maintain NSR since yesterday. Had 4,000 cc's in yesterday IV. Date of service 11/28/2021: Continues to feel better. No chest pain. No shortness of breath. Feels better now than she has since admission. Date of service 11/29/2021: Feels good. Breathing is just fine. She's up to the chair and has ambulated around the room without issue. No chest pain, no palpitations. Date of service 11/30/2021: Continues to feel very well. She is off oxygen continues to any shortness of. No chest pain, palpitations. Remains in sinus rhythm on telemetry. okay for discharge from cardiac perspective. Review of Systems Constitutional: Constitutional: Reports fatigue and Denies weakness Eyes: Eyes: Reports no additional eye complaints ENT: Denies epistaxis Cardiovascular: Cardiovascular: Denies chest pain, Denies pedal edema, Denies lightheadedness, Denies palpitations, Denies dyspnea and Denies dyspnea on exertion Respiratory: Respiratory: Reports cough, Denies dyspnea and Denies dyspnea on exertion Gastrointestinal: Gastrointestinal: Denies abdominal pain, Denies melena and Denies hematochezia Genitourinary: Genitourinary: Denies hematuria Musculoskeletal: Musculoskeletal: Denies back pain Integumentary/Breasts: Skin/Breast: Denies rash Neurologic: Denies behavioral changes, Denies confusion and D
== END 2021-11-30 12:20 | disposition home or self-care (01) | DRG 871 ==
LOC: ANHED 18:42 → ANH2MED 20:53 → ANHIMU 23:15 → ANH2MED 11-30 10:19 → ANHIMU 12-01 12:18
PROVIDERS: Emergency Medicine; Internal Medicine Nephrology; Nurse Practitioner; Admitting Provider Internal Medicine; Emergency Provider General Practice; PCP Family Medicine; Visit Provider Internal Medicine
DX: A41.9 Sepsis, unspecified organism (principal); J18.9 Pneumonia, unspecified organism; N17.9 Acute kidney failure, unspecified; N18.4 Chronic kidney disease, stage 4 (severe); R65.20 Severe sepsis without septic shock; I12.9 Hypertensive chronic kidney disease with stage 1 through stage 4 chronic kidney disease, or unspecified chronic kidney disease; I51.89 Other ill-defined heart diseases; I48.0 Paroxysmal atrial fibrillation; I44.7 Left bundle-branch block, unspecified; K52.9 Noninfective gastroenteritis and colitis, unspecified; M81.0 Age-related osteoporosis without current pathological fracture; Z20.822 Contact with and (suspected) exposure to COVID-19; Z86.711 Personal history of pulmonary embolism; Z90.49 Acquired absence of other specified parts of digestive tract; Z98.49 Cataract extraction status, unspecified eye; Z87.891 Personal history of nicotine dependence; Z88.1 Allergy status to other antibiotic agents; Z88.0 Allergy status to penicillin
CPT/HCPCS: 36415; 36600; 51701; 71045; 71046; 76775; 80053; 80069; 81001; 82375; 82550; 82570; 82805; 83050; 83605; 83615; 83735; 83880; 84100; 84156; 84300; 85025; 85055; 85610; 85730; 86140; 87040; 87804; 93005; 93306; 94618; 96361; 96365; 96367; 96375; 97110; 97116; 97161; 97165; 97535; 99285; A9270; C9803; G0378; J0131; J0282; J0692; J1956; J3370; J3475; J7030; J7040; J7070; U0003; U0005

== ENCOUNTER 2021-12-26 11:41 | Outpatient (CLI) | payer MEDICARE, SELFPAY ==
--- NOTE | ~2021-12-26 | XR_ITS ---
EXAMINATION: XR chest 2V DATE: 12/26/2021 12:16 INDICATION: Chronic kidney disease, stage IV. Pneumonia. TECHNIQUE: Frontal and lateral views of the chest were obtained. COMPARISON: Chest single view 11/26/2021, chest CT 01/31/2018 FINDINGS: There is mild scarring at right lung apex. There is mild scarring and peripheral right mid and lower lung zones. There is mild atelectasis at left lung base. There is blunting of the costophre carolyn angles bilaterally. No pneumothorax. The heart size is normal. Surgical clips in the right upper quadrant are likely from cholecystectomy. There is a chronic compression fracture of T11. There is de formity of right fifth rib. IMPRESSION: 1. Mild scarring at right lung apex and peripheral right mid and lower lung zones. Mild atelectasis a t left lung base. 2. Chronic blunting of the bilateral costophrenic angles, consistent with scarring and/or small pleur al effusions. Reviewed, dictated and finalized at location A. WRIGHT INSTRUCTOR IMPRESSION: 1. Mild scarring at right lung apex and peripheral right mid and lower lung zon es. Mild atelectasis at left lung base. 2. Chronic blunting of the bilateral costophrenic angles, consistent with scarr ing and/or small pleural effusions.
[2021-12-26 12:08] LABS: Basophils Percent Auto 0.3 % (0.2-1.2); Eosinophils Absolute Auto 0.1 K/mm3 (0-0.3); Eosinophils Percent Auto 0.4 % (0-4.4); Hemoglobin 11.5 g/dL (12.0-15.0); Immature Granulocyte Absolute 0.33 K/mm3 (0.00-0.031); Immature Granulocyte Percent A 2.6 % (0-0.5); Lymphocytes Absolute Auto 2.61 K/mm3 (0.9-3.2); Lymphocytes Percent Auto 20.9 % (18.3-44.2); Mean Corpuscular HGB Conc 31.1 g/dl (32-36); Mean Corpuscular Hemoglobin 30.1 pg (26-34); Mean Corpuscular Volume 96.9 fl (80-100); Mean Platelet Volume 10.3 fl (7.4-10.4); Monocytes Percent Auto 8.3 % (2.6-8.5); Neutrophils Absolute Auto 8.4 K/mm3 (1.3-6.7); Neutrophils Percent Auto 67.5 % (45.5-73.1); Platelet Count Result 227 k/mm3 (150-375); Red Blood Count 3.82 M/mm3 (4.2-5.4); Red Cell Distribution Width 14.6 % (11.5-14.5); White Blood Count 12.5 K/mm3 (4.5-10.0)
[2021-12-26 12:22] LABS: Iron 40 ug/dL (37-170)
[2021-12-26 12:27] LABS: Bilirubin,Total 0.7 mg/dL (0.2-1.3); Sodium 138 mmol/L (137-145)
[2021-12-26 12:28] LABS: Alanine Aminotransferase 92 U/L (4-35); Albumin Level 3.4 g/dL (3.5-5.1); Alkaline Phosphatase 71 U/L (38-126); Anion Gap 2 mmol/L (8-16); Aspartate Amino Transferase 48 U/L (14-36); Blood Urea Nitrogen 44 mg/dL (7-17); Calcium 8.3 mg/dL (8.4-10.2); Carbon Dioxide 28 mmol/L (22-30); Chloride 108 mmol/L (98-107); Estimated Glomerular Filt Rate 27; Glucose 100 mg/dL (65-110); Potassium 4.5 mmol/L (3.4-5.0)
[2021-12-26 12:33] LABS: Percent Iron Saturation 18 % (20-50)
== END 2021-12-26 11:42 | disposition home or self-care (01) ==
PROVIDERS: PCP Family Medicine; Visit Provider Nurse Practitioner Gerontology
DX: I13.0 Hypertensive heart and chronic kidney disease with heart failure and stage 1 through stage 4 chronic kidney disease, or unspecified chronic kidney disease (principal); N18.4 Chronic kidney disease, stage 4 (severe); D63.1 Anemia in chronic kidney disease; I50.32 Chronic diastolic (congestive) heart failure; J18.9 Pneumonia, unspecified organism; R91.8 Other nonspecific abnormal finding of lung field; J98.11 Atelectasis
CPT/HCPCS: 36415; 71046; 80053; 82607; 83540; 83550; 84443; 85025

== ENCOUNTER 2022-01-02 07:01 | Inpatient (IN) | payer MEDICARE, SELFPAY ==
[2022-01-02] VITALS (27 sets, daily range): BP systolic 148–180; BP diastolic 58–87; PULSE 64–92; RESP 13–29; TEMP 36.2–36.9; O2SAT 88–100; BMI 19.5
--- NOTE | ~2022-01-02 | US_ITS ---
EXAMINATION: US abdomen limited EXAM DATE: 01/02/2022 13:35 INDICATION: Elevated LFT's TECHNIQUE: Multiple grayscale and Doppler images of the abdomen right upper quadrant were obtained (b y a technologist who performed the scan) and subsequently reviewed. There is no prior study for adriana mabry. FINDINGS: The pancreatic head and body are normal in appearance. The pancreatic tail is not visualized. The l iver has normal echogenicity and contour. There are no focal liver lesions identified. There is no evidence of intrahepatic biliary duct dilation. Portal venous flow was seen in the hepatopedal, nor mal direction and has normal Doppler waveform. No right-sided hydronephrosis. Common bile duct measures 5 mm, which is normal. The gallbladder fossa is unremarkable. IMPRESSION: Unremarkable abdominal ultrasound exam. Reviewed, dictated and finalized at location A. ATION THERAPY TECHNICIAN
--- NOTE | ~2022-01-02 | XR_ITS ---
EXAMINATION: XR chest 1V portable EXAM DATE: 01/02/2022 07:27 INDICATION: cough TECHNIQUE: Frontal and lateral projections of the chest obtained and reviewed. Comparison is made to prior examination from 12/26/2021. FINDINGS: Development of moderate amount of ill-defined bilateral reticulation, appearance most con sistent with mild pulmonary edema. Pneumonia not excludable. There is cardiomegaly with increase in t he silhouette compared to prior study. There are small bilateral pleural effusions unchanged. No pneu mothorax. Chronic hyperinflation. There are mild bony degenerative changes. IMPRESSION: Development of indistinct reticulation. Cardiomegaly, small pleural effusions. Consider CHF. Pneumonia not excludable. Reviewed, dictated and finalized at location A. VERY ENGINEER IMPRESSION: Development of indistinct reticulation. Cardiomegaly, small pleura l effusions. Consider CHF. Pneumonia not excludable.
--- NOTE | 2022-01-02 07:04 | ECG_ITS ---
Measurements Intervals [place] Rate: 84 P: 94 UT: 168 QRS: -22 QRSD: 143 T: 103 QT: 394 QTc: 467 Interpretive Statements SINUS RHYTHM LEFT BUNDLE BRANCH BLOCK BASELINE ARTIFACT- I, II, III, AVR, AVL, AVF, V4-V6 ABNORMAL ECG Electronically Signed On 01-02-2022 8:01:47 RIB CHOPPER by Jagjit Pan D.O.
--- NOTE | 2022-01-02 07:22 | ED.SOB ---
HPI - SOB/Dyspnea General Chief Complaint: Shortness of Breath/Dyspnea Stated Complaint: SOB Time Seen by Provider: 01/02/22 07:01 Source: RN notes reviewed History of Present Illness HPI Narrative: Patient presents emergency room from home via EMS for shortness of breath. Patient has been feeling short of breath since last night states that she was recently admitted to the hospital in mid November with pneumonia she denies any fevers or chills she states she has had a cough this been nonproductive she denies any chest pain abdominal pain nausea vomiting or any other symptoms per EMS the patient was hypoxic on room air in the 80s placed on nasal cannula Related Data Allergies Allergy/AdvReac Type Severity Reaction Status Date / Time calcitonin Allergy Intermediate eye itch Verified 12/26/21 10:44 and swelling mirabegron [From Myrbetriq] Allergy Intermediate swelling Verified 12/26/21 10:44 alendronate sodium Allergy Mild unknown Verified 12/26/21 10:44 Penicillins Allergy Mild hives Verified 12/26/21 10:44 risedronate sodium Allergy Mild unknown Verified 12/26/21 10:44 ciprofloxacin Allergy Unknown joint aches Verified 12/26/21 10:44 Review of Systems Review of Systems: Gen.: Denies fevers or chills ENT: Denies congestion Respiratory: Denies shortness of breath or cough CV: See HPI GI: Denies abdominal pain nausea, emesis or diarrhea Musculoskeletal: Denies back pain or muscle pain Neuro: Denies numbness, tingling, weakness or focal weakness Skin: Denies rash Except as documented, all other systems reviewed and negative PMFSH Past Medical History Medical History Acute kidney injury Benign essential HTN Chronic kidney disease, stage 4 (severe) HX: anticoagulation Osteoporosis Paroxysmal atrial fibrillation Pulmonary embolism Surgical History Surgical History History of appendectomy Hx of cataract surgery S/P cholecystectomy Family History Family History Mother Cerebrovascular accident, Onset Age: 83 Patient's mother is Father Family history of coronary artery disease, Onset Age: 79 Patient's father is Social History Social History (Reviewed 01/02/22 @ 07:23 by INDIRA Crystal Social History: The patient lives home alone and she has 1 child. 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 She is . She quit smoking many years ago. She does not use any alcohol marijuana or illicit drugs. Code status full code Smoking status: Former smoker Tobacco type: cigarettes Second hand tobacco smoke exposure: No Additional smoking assessment comments: 40 to 50 years ago Alcohol intake: never Substance use: never Substance use type: does not use Gender identity (if verbalized by the patient): Female Sexual Orientation (if Verbalized by the Patient): Straight or Heterosexual Spiritual care concerns: No Exam Narrative: APPEARANCE: No acute distress, nontoxic, resting in bed EYES: EOMI HEENT: Normocephalic, atraumatic, OMM RESPIRATORY: No respiratory distress Clear to auscultation bilaterally with no rhonchi wheezing or rales. CARDIOVASCULAR: Regular rate and rhythm without murmurs rubs or gallops. ABDOMINAL: Soft, nontender, nondistended, no rebound or guarding MUSCULOSKELETAl: Moves all extremities. No clubbing, cyanosis or edema. NEURO: Awake and alert. Following commands, speech normal, no focal deficits SKIN:: Warm, dry. No rashes lesions or abrasions PSYCHIATRIC: Normal affect/mood, Course Course Emergency Course: Reviewed old records Discussed with Dr Villeda presentation work-up agrees with admission at this time Discussed with JOSE ANGEL Alford for Dr. Leach presentation work-up agrees with consult Discussed with patient and family results of workup and delia
[2022-01-02 07:27] LABS: Basophils Percent Auto 0.3 % (0.2-1.2); Eosinophils Absolute Auto 0.1 K/mm3 (0-0.3); Eosinophils Percent Auto 0.5 % (0-4.4); Hematocrit 35.3 % (37.0-47.0); Immature Granulocyte Absolute 0.12 K/mm3 (0.00-0.031); Immature Granulocyte Percent A 0.9 % (0-0.5); Lymphocytes Absolute Auto 2.13 K/mm3 (0.9-3.2); Lymphocytes Percent Auto 15.4 % (18.3-44.2); Mean Corpuscular HGB Conc 31.2 g/dl (32-36); Mean Corpuscular Hemoglobin 30.4 pg (26-34); Mean Corpuscular Volume 97.5 fl (80-100); Mean Platelet Volume 10.9 fl (7.4-10.4); Monocytes Absolute Auto 0.8 K/mm3 (0.1-0.6); Monocytes Percent Auto 5.5 % (2.6-8.5); Neutrophils Absolute Auto 10.7 K/mm3 (1.3-6.7); Neutrophils Percent Auto 77.4 % (45.5-73.1); Platelet Count Result 168 k/mm3 (150-375); Red Blood Count 3.62 M/mm3 (4.2-5.4); Red Cell Distribution Width 14.7 % (11.5-14.5); White Blood Count 13.8 K/mm3 (4.5-10.0)
[2022-01-02 07:35] LABS: Lactic Acid Reflex 1.6 mmol/L (0.7-2.1)
[2022-01-02 07:38] LABS: Alanine Aminotransferase 90 U/L (4-35); Albumin Level 3.7 g/dL (3.5-5.1); Alkaline Phosphatase 94 U/L (38-126); Anion Gap 7 mmol/L (8-16); Aspartate Amino Transferase 79 U/L (14-36); Bilirubin,Total 0.8 mg/dL (0.2-1.3); Blood Urea Nitrogen 30 mg/dL (7-17); Calcium 8.3 mg/dL (8.4-10.2); Carbon Dioxide 24 mmol/L (22-30); Chloride 110 mmol/L (98-107); Estimated CRCL calculation 20 ml/min; Estimated Glomerular Filt Rate 27; Glucose 112 mg/dL (65-110); Potassium 4.4 mmol/L (3.4-5.0); Sodium 141 mmol/L (137-145)
[2022-01-02 07:47] LABS: INR 1.1; Prothrombin Time 13.8 Seconds (11.1-14.7)
[2022-01-02 07:48] LABS: Partial Thromboplastin Time 29.2 SECONDS (22.3-36.8)
[2022-01-02 07:54] LABS: NT Pro B Type Natriuretic Pept 5560 pg/mL (5-100)
[2022-01-02] MEDS: FUROSEMIDE INJ 40 MG/4 ML VIAL IV PUSH (09:09)
--- NOTE | 2022-01-02 09:20 | PM.IMHP ---
H&P: HPI History of Present Illness Date/Time: PATIENT ADMITTED UNDER OBSERVATION STATUS 01/02/22 09:20 Chief Complaint: SOB Narrative: Ms. Shah is an 86-year-old female with a known history paroxysmal atrial fibrillation, chronic kidney disease, and hypertension. Patient presents to the emergency with complaints of shortness of breath that started at 10:00 p.m. last evening. Patient states that she noticed she was getting short of breath and took her albuterol inhaler that she received last time she was hospitalized she states she had no improvement so she took a 2nd time a few hours later without any improvement decided to come to the hospital for further evaluation. Patient states that she does have edema, but this is a chronic issue. Patient states she has not noticed any increasing edema or weight gain. Patient denies any chest pain, cough, lightheadedness, dizziness, palpitations, syncopal or near-syncopal episodes. Patient states she is taking all medications without any difficulty and has no history of congestive heart failure, TN, or CAD that she is aware of. Primary emergency room patient was noted have elevated BNP and chest x-ray did show congestive heart failure. Patient was given 1 dose of IV Lasix. Patient was placed on oxygen at 2 L NC she is feeling significantly improved. Review of Systems Review of Systems: All systems reviewed & are unremarkable except as noted in HPI and below Constitutional: Constitutional: Reports as per HPI and Reports no additional constitutional complaints Eyes: Eyes: Reports as per HPI and Reports no additional eye complaints ENT: Reports system reviewed and no additional complaints, except as documented and Reports as per HPI Cardiovascular: Cardiovascular: Reports as per HPI, Reports leg edema and Reports dyspnea Respiratory: Respiratory: Reports as per HPI and Reports dyspnea Gastrointestinal: Gastrointestinal: Reports as per HPI and Reports no additional gastrointestinal complaints Musculoskeletal: Musculoskeletal: Reports no additional musculoskeletal complaints Neurologic: Reports system reviewed and no additional complaints, except as documented and Reports as per HPI Psychiatric: Psychiatric: Reports no additional psychiatric complaints and Reports as per HPI Endocrine: Endocrine: Reports no additional endocrine complaints and Reports as per HPI Hematologic/Lymphatic: Hematologic/Lymphatic: Reports no additional hematologic/lymphatic complaints and Reports as per HPI Allergic/Immunologic: Allergic/Immunologic: Reports no additional allergic/immunologic complaints and Reports as per HPI [facility] Past Medical History Medical History (Updated 01/02/22 @ 09:34 by Dwaine Arriaza DO) Acute kidney injury Benign essential HTN Chronic kidney disease, stage 4 (severe) HX: anticoagulation Osteoporosis Paroxysmal atrial fibrillation Pulmonary embolism Surgical History Surgical History (Updated 01/02/22 @ 09:37 by Pati Rodriges APRN) History of appendectomy History of lobectomy of lung Hx of cataract surgery S/P cholecystectomy Family History Family History Mother Cerebrovascular accident, Onset Age: 83 Patient's mother is Father Family history of coronary artery disease, Onset Age: 79 Patient's father is Social History Social History Social History: The patient lives home alone and she has 1 child. 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 She is . She quit smoking many years ago. She does not use any alcohol marijuana or illicit drugs. Code status full code Smoking status: Former smoker Tobacco type: cigarettes Second hand tobacco smoke exposure: No Additional smoking assessment comments: 40 to 50 years ago Alcohol intake: never Substance use: never Substance use type:
[2022-01-02 09:30] LABS: SARS-CoV-2 RNA PCR Negative
--- NOTE | 2022-01-02 10:46 | ADMGEN ---
This patient, Mariya Shah, was admitted to Medical Room 248-01. Patient/family oriented to hospital policies and general routines including ID bracelet, bed and alarms, visiting hours, pain management, procedures, bathroom and other care routines, personal items, smoking policy, room service/diet, and visiting hours. Information on how to activate the Rapid Response Team has been discussed. Patient/Family are encouraged to report perceived risks to care and to ask questions if they do not understand what they are told or what they should do.
[2022-01-02 11:42] LABS: Troponin I 0.027 ng/mL (0.000-0.034)
[2022-01-02 15:21] LABS: Troponin I 0.025 ng/mL (0.000-0.034)
[2022-01-02] MEDS: APIXABAN 2.5 MG TABLET PO (20:08)
[2022-01-03] VITALS (16 sets, daily range): BP systolic 142–165; BP diastolic 52–76; PULSE 65–76; RESP 16–18; TEMP 36.4–36.9; O2SAT 92–97
[2022-01-03 06:19] LABS: Basophils Percent Auto 0.4 % (0.2-1.2); Eosinophils Absolute Auto 0.1 K/mm3 (0-0.3); Eosinophils Percent Auto 1.2 % (0-4.4); Hematocrit 30.7 % (37.0-47.0); Hemoglobin 9.6 g/dL (12.0-15.0); Immature Granulocyte Absolute 0.08 K/mm3 (0.00-0.031); Immature Granulocyte Percent A 0.8 % (0-0.5); Lymphocytes Absolute Auto 1.62 K/mm3 (0.9-3.2); Lymphocytes Percent Auto 16.7 % (18.3-44.2); Mean Corpuscular HGB Conc 31.3 g/dl (32-36); Mean Corpuscular Hemoglobin 30.6 pg (26-34); Mean Corpuscular Volume 97.8 fl (80-100); Mean Platelet Volume 11.2 fl (7.4-10.4); Monocytes Absolute Auto 0.7 K/mm3 (0.1-0.6); Monocytes Percent Auto 6.7 % (2.6-8.5); Neutrophils Absolute Auto 7.2 K/mm3 (1.3-6.7); Neutrophils Percent Auto 74.2 % (45.5-73.1); Platelet Count Result 151 k/mm3 (150-375); Red Blood Count 3.14 M/mm3 (4.2-5.4); Red Cell Distribution Width 14.6 % (11.5-14.5); White Blood Count 9.7 K/mm3 (4.5-10.0)
[2022-01-03 06:31] LABS: Alanine Aminotransferase 64 U/L (4-35); Alkaline Phosphatase 81 U/L (38-126); Anion Gap 3 mmol/L (8-16); Aspartate Amino Transferase 41 U/L (14-36); Bilirubin,Total 0.7 mg/dL (0.2-1.3); Blood Urea Nitrogen 28 mg/dL (7-17); Calcium 8.1 mg/dL (8.4-10.2); Carbon Dioxide 30 mmol/L (22-30); Chloride 106 mmol/L (98-107); Estimated CRCL calculation 17 ml/min; Estimated Glomerular Filt Rate 25; Glucose 85 mg/dL (65-110); Magnesium 1.5 mg/dL (1.6-2.3); Sodium 139 mmol/L (137-145)
[2022-01-03] MEDS: AMIODARONE HCL 200 MG TABLET 400 MG PO (08:11)
[2022-01-03] MEDS: OPTI-GEN TAB 1 TABLET PO (08:11)
[2022-01-03] MEDS: METOPROLOL SUCCINATE EXT REL 50 MG TABCR PO (08:11)
[2022-01-03] MEDS: APIXABAN 2.5 MG TABLET PO ×2 (08:11→21:27)
[2022-01-03] MEDS: FUROSEMIDE INJ 40 MG/4 ML VIAL IV PUSH (08:12)
--- NOTE | 2022-01-03 08:38 | PM.IMPN ---
Progress Note: A&P Assessment and Plan (1) CHF (congestive heart failure): Code(s): I50.9 - Heart failure, unspecified Status: Acute Assessment and Plan: ACUTE DIASTOLIC HEART FAILURE. Patient received IV Lasix and has significantly improved. Will continue with daily Lasix. Patient is On oxygen 2 L per nasal cannula will continue with this and wean as saturations will allow. Patient did have echo Doppler done in November of this year and it showed normal left ventricular size with mild concentric hypertrophy and sigmoid septum of the elderly. Good left ventricular systolic function with no segmental wall motion abnormalities and ejection fraction of 60-65%. Grade 2 diastolic dysfunction. Cardiology has been consulted awaiting their recommendations EKG with rhythm and left bundle branch block Good urine output with diuresis Continue to monitor renal function and intake output (2) Elevated liver enzymes: Code(s): R74.8 - Abnormal levels of other serum enzymes Status: Acute Assessment and Plan: Patient had labs performed 1 week ago from her primary care office and it did show elevated AST and ALT. liver enzymes remain elevated on admission. Patient states that she is aware that they have been elevated in the past and her primary care has been monitoring this. Right upper quadrant ultrasound 01/02/2022 unremarkable (3) Paroxysmal atrial fibrillation: Code(s): I48.0 - Paroxysmal atrial fibrillation Status: Acute Assessment and Plan: Patient is in normal sinus rhythm. The EKG shows sinus rhythm with left bundle-branch block which is noted on previous EKGs. resume home medications On Eliquis for anticoagulation (4) Chronic kidney disease, stage 4 (severe): Code(s): N18.4 - Chronic kidney disease, stage 4 (severe) Status: Acute Assessment and Plan: Patient's creatinine on admission is 1.8. Patient's baseline creatinine is 1.7-1.8 dated back to 2019. Will continue monitor closely since patient will be receiving diuretics. (5) Hypertensive kidney disease with chronic kidney disease stage IV: Code(s): I12.9 - Hypertensive chronic kidney disease with stage 1 through stage 4 chronic kidney disease, or unspecified chronic kidney disease; N18.4 - Chronic kidney disease, stage 4 (severe) Status: Acute Assessment and Plan: Resume home medications Blood pressure not optimal and admission On metoprolol at home Will add amlodipine Will avoid PATEL inhibitor currently due to ongoing diuresis however need to initiate PATEL inhibitor/ARB due to underlying chronic kidney disease and congestive heart failure. Used to be on lisinopril, recently stopped due to FELECIA and hypotension (6) Hypomagnesemia: Code(s): E83.42 - Hypomagnesemia Status: Acute Assessment and Plan: replace (7) Acute respiratory failure with hypoxia: Code(s): J96.01 - Acute respiratory failure with hypoxia Status: Acute Assessment and Plan: on nasal cannula oxygen on admission Wean as tolerated COVID swab was negative WBC count is normal troponin is negative BNP is elevated at 5500 (8) History of pulmonary embolism: Code(s): Z86.711 - Personal history of pulmonary embolism Status: Acute Assessment and Plan: noted in 2018 (9) Anemia: Code(s): D64.9 - Anemia, unspecified Status: Acute Assessment and Plan: acute on chronic No obvious signs of bleeding On anticoagulation Check iron profile and FOBT and erythropoietin level, ferritin vitamin B12 folic acid She is also noted to have positive LAMAR however anti double stranded DNA was negative Subjective Date/time seen: 01/03/22 08:38 Interval history: HPI:Ms. Shah is an 86-year-old female with a known history paroxysmal atrial fibrillation, chronic kidney disease, and hypertension. Patient presents to the emergency with complaints of shortness of breat
[2022-01-03] MEDS: MAGNESIUM SULF 1 GM/D5W 100 ML 1 GM/100 ML BAG IVPB (09:42)
[2022-01-03] MEDS: amLODIPine BESYLATE 5 MG TABLET PO (09:42)
[2022-01-03 09:47] LABS: Immature Reticulocyte Fraction 11.3 % (3.0-15.9); Reticulocyte Hemoglobin Conten 31.2 pg (28.2-35.7); Reticulocyte Percent 1.62 % (0.7-4.3); Reticulocytes Absolute 0.05 B/L (32.2-175.7)
[2022-01-03 09:59] LABS: Lactate Dehydrogenase 421 U/L (313-618)
[2022-01-03 10:15] LABS: Iron 30 ug/dL (37-170)
[2022-01-03 10:27] LABS: Percent Iron Saturation 14 % (20-50)
[2022-01-03 11:06] LABS: Folic Acid > 20.0 ng/mL (2.76->20)
--- NOTE | 2022-01-03 11:06 | PM.CNCAR ---
Assessment and Plan Assessment and plan (1) Acute on chronic diastolic CHF (congestive heart failure): Code(s): I50.33 - Acute on chronic diastolic (congestive) heart failure Status: Acute Assessment and Plan: 86-year-old female with hypertension, CHF preserved ejection fraction, paroxysmal atrial fibrillation on chronic anticoagulation with apixaban, chronic left bundle branch block, CKD. Patient admitted to the hospital with acute on chronic CHF with preserved ejection fraction with underlying CKD. -continue IV furosemide with close monitoring of electrolytes and renal function. Patient will need maintenance diuresis at discharge. -optimal blood pressure control. Continue amlodipine, metoprolol succinate. -anticipated discharge 1-2 days. Outpatient cardiology follow-up. (2) Paroxysmal atrial fibrillation: Code(s): I48.0 - Paroxysmal atrial fibrillation Status: Acute Assessment and Plan: Currently in sinus rhythm. Continue metoprolol succinate; anticoagulation with low-dose apixaban based on age indolent function. Liver enzymes are mildly elevated. Decrease amiodarone dose to 200 mg p.o. daily. Continue to monitor for any potential amiodarone toxic effects. Monitoring as an outpatient. (3) Chronic kidney disease, stage 4 (severe): Code(s): N18.4 - Chronic kidney disease, stage 4 (severe) Status: Acute Assessment and Plan: Optimal blood pressure control. Follow-up with Nephrology. History of Present Illness History of Present Illness Consult date/time: 01/03/22 11:06 DATE OF CONSULT: 01/03/2022 REASON FOR CONSULT: CHF REQUESTING PHYSICIAN:Dwaine Arriaza DO CHIEF COMPLAINT: HPI: 86-year-old female with hypertension, CHF preserved ejection fraction, paroxysmal atrial fibrillation on chronic anticoagulation with apixaban, chronic left bundle branch block, CKD. I recently saw the patient during her previous hospitalization. She was brought to [facility] on 11/24/2021 with complaints of generalized weakness and confusion. She was found to have leukocytosis with left shift and renal failure. COVID-19 PCR negative. Chest x-ray showed Bilateral mid and lower lung infiltrates, right greater than left, suggesting bilateral pneumonia. She received antibiotics for pneumonia. Her initiall EKG showed ectopic atrial rhythm, left bundle branch block. Subsequent EKG showed atrial fibrillation with RVR, ventricular rate 141 beats per minute, LBBB. Patient received IV amiodarone with protestant of sinus rhythm. Echo from 11/25/2021 showed LVEF 60-65%, grade 2 diastolic dysfunction, mild MR, RVSP 45 mmHg. Patient was discharged home on metoprolol succinate, amiodarone and anticoagulation with low-dose apixaban. Patient was readmitted to [facility] Emergency Room on 01/02/2022 with complaints of shortness of breath. She denies chest pain, palpitation, dizziness or syncope. Patient had mild lower extremity swelling. Per EMS, patient was found to be hypoxemic with O2 sats in 80s and was placed on supplemental oxygen with improvement in O2 sats. Vitals upon arrival showed elevated blood pressure at 179/87, heart rate 92, respirations 24, saturating 88%. EKG on admission which I personally reviewed showed sinus rhythm, left bundle-branch block. On telemetry, patient has been predominantly in sinus rhythm. Serial troponins negative. BNP elevated at 5560. Chest x-ray showed pulmonary vascular congestion. COVID-19 negative. Patient reports improvement in dyspnea with diuresis. Patient has CKD and follows up with Nephrology as an outpatient. Reason For Visit: Acute respiratory failure with hypoxia/CHF Review of Systems Review of Systems: General: Positive for fatigue Psychological: Negative for anxiety, depression Ophthalmic: negative for loss of vision ENT: Negative for epistaxis, headaches Allergy and immunology: Negative for hives, nasal congestion Hematologic and lymphati
[2022-01-04] VITALS (10 sets, daily range): BP systolic 154; BP diastolic 64; PULSE 69–89; RESP 15; TEMP 36.4; O2SAT 91–94
[2022-01-04 06:07] LABS: Basophils Percent Auto 0.4 % (0.2-1.2); Eosinophils Absolute Auto 0.2 K/mm3 (0-0.3); Eosinophils Percent Auto 1.9 % (0-4.4); Hematocrit 33.3 % (37.0-47.0); Hemoglobin 10.5 g/dL (12.0-15.0); Immature Granulocyte Absolute 0.08 K/mm3 (0.00-0.031); Immature Granulocyte Percent A 0.9 % (0-0.5); Lymphocytes Absolute Auto 1.53 K/mm3 (0.9-3.2); Mean Corpuscular HGB Conc 31.5 g/dl (32-36); Mean Corpuscular Hemoglobin 30.4 pg (26-34); Mean Corpuscular Volume 96.5 fl (80-100); Mean Platelet Volume 10.4 fl (7.4-10.4); Monocytes Absolute Auto 0.6 K/mm3 (0.1-0.6); Monocytes Percent Auto 6.7 % (2.6-8.5); Neutrophils Absolute Auto 6.6 K/mm3 (1.3-6.7); Neutrophils Percent Auto 73.1 % (45.5-73.1); Platelet Count Result 162 k/mm3 (150-375); Red Blood Count 3.45 M/mm3 (4.2-5.4); Red Cell Distribution Width 14.4 % (11.5-14.5)
[2022-01-04 06:25] LABS: Alanine Aminotransferase 50 U/L (4-35); Albumin Level 3.3 g/dL (3.5-5.1); Alkaline Phosphatase 83 U/L (38-126); Anion Gap 5 mmol/L (8-16); Aspartate Amino Transferase 34 U/L (14-36); Bilirubin,Total 0.6 mg/dL (0.2-1.3); Blood Urea Nitrogen 33 mg/dL (7-17); Calcium 8.1 mg/dL (8.4-10.2); Carbon Dioxide 33 mmol/L (22-30); Chloride 101 mmol/L (98-107); Estimated CRCL calculation 16 ml/min; Estimated Glomerular Filt Rate 24; Glucose 90 mg/dL (65-110); Magnesium 1.6 mg/dL (1.6-2.3); Potassium 3.8 mmol/L (3.4-5.0); Sodium 139 mmol/L (137-145)
--- NOTE | 2022-01-04 08:05 | PM.DS ---
DS: Admitting Diagnosis Discharge Date 01/04/2022 Admitting Diagnosis shortness of breath DS: Discharge Diagnosis Discharge Diagnosis (1) CHF (congestive heart failure): Code(s): I50.9 - Heart failure, unspecified Status: Acute Assessment and Plan: patient presented with ACUTE DIASTOLIC HEART FAILURE. Patient received IV Lasix and has significantly improved. patient continued on daily Lasix. Patient initially On oxygen 2 L per nasal cannula which was weaned off during the hospital stay.Patient did have echo Doppler done in November of 2021 and it showed normal left ventricular size with mild concentric hypertrophy and sigmoid septum of the elderly. Good left ventricular systolic function with no segmental wall motion abnormalities and ejection fraction of 60-65%. Grade 2 diastolic dysfunction. Cardiology has been consulted and appreciate their recommendations. She will continue to follow with Cardiology as an outpatient basis. EKG with rhythm and left bundle branch block Good urine output with diuresis Continue to monitor renal function and intake output Blood pressure control with addition of amlodipine 5 mg and restart of smaller dose lisinopril 5 mg daily which needs to be titrated as an outpatient basis (2) Elevated liver enzymes: Code(s): R74.8 - Abnormal levels of other serum enzymes Status: Acute Assessment and Plan: Patient had labs performed 1 week ago from her primary care office and it did show elevated AST and ALT. liver enzymes remain elevated on admission. Patient states that she is aware that they have been elevated in the past and her primary care has been monitoring this. Right upper quadrant ultrasound 01/02/2022 unremarkable Amiodarone dose decreased to 200 mg daily during this hospital stay due to elevated liver enzymes (3) Paroxysmal atrial fibrillation: Code(s): I48.0 - Paroxysmal atrial fibrillation Status: Acute Assessment and Plan: Patient is in normal sinus rhythm. The EKG shows sinus rhythm with left bundle-branch block which is noted on previous EKGs. resume home medications On Eliquis for anticoagulation remained on sinus rhythm during the hospital stay (4) Chronic kidney disease, stage 4 (severe): Code(s): N18.4 - Chronic kidney disease, stage 4 (severe) Status: Acute Assessment and Plan: Patient's creatinine on admission is 1.8. Patient's baseline creatinine is 1.7-1.8 dated back to 2019. Will continue monitor closely since patient will be receiving diuretics. Will start lisinopril small dose 5 mg daily at discharge. She used to be 20 mg b.i.d. in the past which was stopped due to FELECIA last month. Her renal function is back to normal this admission (5) Hypertensive kidney disease with chronic kidney disease stage IV: Code(s): I12.9 - Hypertensive chronic kidney disease with stage 1 through stage 4 chronic kidney disease, or unspecified chronic kidney disease; N18.4 - Chronic kidney disease, stage 4 (severe) Status: Acute Assessment and Plan: Resume home medications Blood pressure not optimal and admission On metoprolol at home added amlodipine for better blood pressure control. Will also reinitiate lisinopril 5 mg daily reduced dose from previous dosing titrate up as tolerated as an outpatient basis (6) Hypomagnesemia: Code(s): E83.42 - Hypomagnesemia Status: Acute Assessment and Plan: replace Placed on 20 mg magnesium oxide at discharge (7) Acute respiratory failure with hypoxia: Code(s): J96.01 - Acute respiratory failure with hypoxia Status: Acute Assessment and Plan: on nasal cannula oxygen on admission Wean as tolerated and was on room air at the time of discharge COVID swab was negative WBC count is normal troponin is negative BNP is elevated at 5500 (8) History of pulmonary embolism: Code(s): Z86.711 - Personal history of pulmonar
[2022-01-04] MEDS: AMIODARONE HCL 200 MG TABLET PO (08:12)
[2022-01-04] MEDS: OPTI-GEN TAB 1 TABLET PO (08:12)
[2022-01-04] MEDS: amLODIPine BESYLATE 5 MG TABLET PO (08:12)
[2022-01-04] MEDS: METOPROLOL SUCCINATE EXT REL 50 MG TABCR PO (08:13)
[2022-01-04] MEDS: APIXABAN 2.5 MG TABLET PO (08:13)
[2022-01-04] MEDS: FUROSEMIDE 40 MG TABLET PO (08:20)
[2022-01-04] MEDS: MAGNESIUM OXIDE 200 MG TABLET PO (09:20)
--- NOTE | 2022-01-04 10:52 | PM.PNCARD ---
Progress Note: A&P Assessment and Plan (1) Acute on chronic diastolic CHF (congestive heart failure): Code(s): I50.33 - Acute on chronic diastolic (congestive) heart failure Status: Acute Assessment and Plan: 86-year-old female with hypertension, CHF preserved ejection fraction, paroxysmal atrial fibrillation on chronic anticoagulation with apixaban, chronic left bundle branch block, CKD. Patient admitted to the hospital with acute on chronic CHF with preserved ejection fraction with underlying CKD. -she diuresed well and improved symptomatically on IV furosemide -She was shifted to oral furosemide today -Discharge on maintenance dose of 40mg furosemide p.o. daily -optimal blood pressure control. Continue amlodipine, metoprolol succinate. -Outpatient cardiology follow-up in out office in one month. (2) Paroxysmal atrial fibrillation: Code(s): I48.0 - Paroxysmal atrial fibrillation Status: Acute Assessment and Plan: Currently in sinus rhythm. Continue metoprolol succinate; anticoagulation with low-dose apixaban based on age indolent function. Liver enzymes are mildly elevated. Amiodarone was decreased to 200 mg daily. Continue to monitor for any potential amiodarone toxic effects. Monitoring as an outpatient. (3) Chronic kidney disease, stage 4 (severe): Code(s): N18.4 - Chronic kidney disease, stage 4 (severe) Status: Acute Assessment and Plan: Optimal blood pressure control. Follow-up with Nephrology. Subjective Date/time seen: 01/04/22 10:52 cardiology follow-up for CHF Patient is feeling much better today. Denies any shortness of breath, palpitations, chest pain. She is ready and eager to go home. Review of Systems Review of Systems: All systems reviewed & are unremarkable except as noted in HPI and below Exam Narrative: Pleasant elderly lady sitting up in the chair. Const: General: comfortable and no acute distress HENMT: Head: normal to inspection Ears: hearing grossly normal bilaterally Eyes: General: appearance normal, both eyes and all related structures Pupils: Equal, round and reactive pupils present Neck: Neck: normal visual inspection and no JVD Resp: Effort & Inspection: normal respiratory effort Auscultation: clear to auscultation bilaterally Cardio: Rate: regular rate Rhythm: regular rhythm Heart sounds: S1 normal heart sound present and S2 normal heart sound present Peripheral pulses: Peripheral pulses 2+ throughout GI: Auscultation: normal bowel sounds Skin: General skin exam: normal color Neuro: General: patient oriented x3 Extrem: General: normal to inspection and no pedal edema Psych: Appearance: grossly normal Mental Status: mental status grossly normal Objective Data Vital Signs Vital Signs: Vital Signs - 24 hr 01/03/22 11:10 01/03/22 12:00 01/03/22 14:00 Temperature 36.9 C Pulse Rate 69 71 Respiratory Rate 18 Blood Pressure 142/52 H Pulse Oximetry 92 95 01/03/22 16:00 01/03/22 20:00 01/03/22 20:17 Temperature 36.6 C Pulse Rate 69 66 66 Respiratory Rate 16 Blood Pressure 165/53 H Pulse Oximetry 95 01/03/22 20:28 01/03/22 22:00 01/04/22 00:00 Temperature 36.6 C Pulse Rate 66 75 Respiratory Rate 16 Blood Pressure 165/53 H Pulse Oximetry 94 95 01/04/22 04:00 01/04/22 05:59 01/04/22 07:38 Temperature 36.4 C Pulse Rate 69 69 80 Respiratory Rate 15 Blood Pressure 154/64 H Pulse Oximetry 92 92 01/04/22 08:00 01/04/22 08:12 01/04/22 08:13 Temperature Pulse Rate 72 80 80 Respiratory Rate Blood Pressure Pulse Oximetry Intake/Output Intake/Output: Intake & Output 01/01/22 01/02/22 01/03/22 01/04/22 23:59 23:59 23:59 23:59 Intake Total 320 1270 960 Output Total 1200 2855 1000 [facility] -880 [phone] -40 Meds/Results Medications: Active Medications Generic Name Dose Route Start Last Admin Trade Name Freq PRN Reason Stop Dose Ad
--- NOTE | 2022-01-04 11:51 | HOMEO2EVAL ---
Evaluation was performed at [facility] Home Oxygen Evaluation RC: Home Oxygen (O2) Evaluation Start: 01/04/22 07:39 Freq: ONCE Status: Discharge Protocol: RPE Activity Type Activity Date Activity User E-Sign Co-Sign Detail Recorded Client Recorded Date Recorded By Document 01/04/22 11:45 KRM [id number] 01/04/22 11:51 KRM Document 01/04/22 11:46 KRM [id number] 01/04/22 11:51 KRM Document 01/04/22 11:50 KRM [id number] 01/04/22 11:51 KRM 01/04/22 01/04/22 01/04/22 11:45 11:46 11:50 Home O2 Evaluation Test Phase Resting Exercise Exercise Oxygen Delivery Room Air Room Air Room Air Pulse Oximetry (90-100 %) 94 91 92 Pulse Rate (60-100 beats/min) 88 87 89 Activity Tolerance Good Good Ambulation Distance (feet) 200 Ambulation Distance (meters) 60.95 Treatment Charges O2 Evaluation - Inpatient
[2022-01-05 18:33] LABS: Erythropoietin (EPO) 6.8 mIU/mL (2.6-18.5)
== END 2022-01-04 11:50 | disposition home or self-care (01) | DRG 291 ==
LOC: ANHED 09:34 → ANH2MED 10:00
PROVIDERS: Nurse Practitioner Adult Health; Admitting Provider Internal Medicine; Emergency Provider Emergency Medicine; PCP Family Medicine; Visit Provider Internal Medicine
DX: I13.0 Hypertensive heart and chronic kidney disease with heart failure and stage 1 through stage 4 chronic kidney disease, or unspecified chronic kidney disease (principal); J96.01 Acute respiratory failure with hypoxia; I50.33 Acute on chronic diastolic (congestive) heart failure; N18.4 Chronic kidney disease, stage 4 (severe); Z20.822 Contact with and (suspected) exposure to COVID-19; D63.8 Anemia in other chronic diseases classified elsewhere; I48.0 Paroxysmal atrial fibrillation; R74.8 Abnormal levels of other serum enzymes; E83.42 Hypomagnesemia; I44.7 Left bundle-branch block, unspecified; Z79.01 Long term (current) use of anticoagulants; Z86.711 Personal history of pulmonary embolism; Z87.891 Personal history of nicotine dependence; Z79.899 Other long term (current) drug therapy
CPT/HCPCS: 36415; 71045; 76705; 80053; 82607; 82668; 82728; 82746; 83540; 83550; 83605; 83615; 83735; 83880; 84484; 85025; 85046; 85610; 85730; 87040; 93005; 94618; 96365; 96374; 96375; 96376; 97161; 97165; 99291; A9270; C9803; G0378; J1940; J3475; U0003; U0005

== ENCOUNTER 2022-01-09 09:34 | Outpatient (CLI) | payer MEDICARE, SELFPAY ==
[2022-01-09 10:28] LABS: Magnesium 1.7 mg/dL (1.6-2.3)
[2022-01-09 10:37] LABS: NT Pro B Type Natriuretic Pept 1240 pg/mL (5-100)
== END 2022-01-09 09:35 | disposition home or self-care (01) ==
PROVIDERS: PCP Family Medicine; Visit Provider Nurse Practitioner Gerontology
DX: E83.42 Hypomagnesemia (principal); I50.33 Acute on chronic diastolic (congestive) heart failure
CPT/HCPCS: 36415; 83735; 83880

== ENCOUNTER 2022-01-31 10:41 | Outpatient (CLI) | payer MEDICARE, SELFPAY ==
[2022-01-31 11:21] LABS: Basophils Absolute Auto 0.1 K/mm3 (0.0-0.1); Basophils Percent Auto 0.7 % (0.2-1.2); Eosinophils Absolute Auto 0.2 K/mm3 (0-0.3); Eosinophils Percent Auto 1.7 % (0-4.4); Hematocrit 41.6 % (37.0-47.0); Hemoglobin 12.7 g/dL (12.0-15.0); Immature Granulocyte Absolute 0.07 K/mm3 (0.00-0.031); Immature Granulocyte Percent A 0.7 % (0-0.5); Lymphocytes Absolute Auto 2.85 K/mm3 (0.9-3.2); Mean Corpuscular HGB Conc 30.5 g/dl (32-36); Mean Corpuscular Hemoglobin 29.8 pg (26-34); Mean Corpuscular Volume 97.7 fl (80-100); Mean Platelet Volume 10.8 fl (7.4-10.4); Monocytes Absolute Auto 0.7 K/mm3 (0.1-0.6); Monocytes Percent Auto 7.3 % (2.6-8.5); Neutrophils Absolute Auto 6.3 K/mm3 (1.3-6.7); Neutrophils Percent Auto 61.6 % (45.5-73.1); Platelet Count Result 274 k/mm3 (150-375); Red Blood Count 4.26 M/mm3 (4.2-5.4); Red Cell Distribution Width 14.1 % (11.5-14.5); White Blood Count 10.2 K/mm3 (4.5-10.0)
[2022-01-31 11:26] LABS: Add Urine Microscopic? YES; Appearance Urine Clear (Clear); Bacteria Urine Trace /hpf; Bilirubin Urine Negative (Negative); Blood Urine 3+ (Negative); Color Urine Yellow (Yellow); Glucose Urine UA Negative (Negative); Ketones Urine Negative (Negative); Leukocyte Esterase Ur Negative LEU/UL (Negative); Mucus Urine Rare /lpf; Nitrate Urine Negative (Negative); Protein Urine Negative (Negative); Specific Grav Ur 1.008 (1.001-1.035); Squamous Epithelial Cell Urine Rare /hpf (Few); Urobilinogen Urine Negative mg/dL (<2.0)
[2022-01-31 11:31] LABS: Alanine Aminotransferase 21 U/L (4-35); Albumin Level 4.2 g/dL (3.5-5.1); Alkaline Phosphatase 62 U/L (38-126); Anion Gap 9 mmol/L (8-16); Aspartate Amino Transferase 34 U/L (14-36); Bilirubin,Total 0.4 mg/dL (0.2-1.3); Blood Urea Nitrogen 51 mg/dL (7-17); Calcium 9.1 mg/dL (8.4-10.2); Carbon Dioxide 29 mmol/L (22-30); Chloride 103 mmol/L (98-107); Estimated Glomerular Filt Rate 13; Glucose 112 mg/dL (65-110); Magnesium 2.2 mg/dL (1.6-2.3); Potassium 4.2 mmol/L (3.4-5.0); Sodium 141 mmol/L (137-145)
[2022-01-31 11:37] LABS: Iron 135 ug/dL (37-170)
[2022-01-31 11:39] LABS: NT Pro B Type Natriuretic Pept 1050 pg/mL (5-100)
[2022-01-31 11:46] LABS: Percent Iron Saturation 45 % (20-50)
== END 2022-01-31 10:42 | disposition home or self-care (01) ==
LOC: ANHLAB 10:46
PROVIDERS: PCP Family Medicine; Visit Provider Nurse Practitioner Gerontology
DX: I11.0 Hypertensive heart disease with heart failure (principal); I50.33 Acute on chronic diastolic (congestive) heart failure; D64.9 Anemia, unspecified; R53.1 Weakness
CPT/HCPCS: 36415; 80053; 81001; 83540; 83550; 83735; 83880; 85025

== ENCOUNTER 2022-01-31 12:57 | Emergency (ER) | payer MEDICARE, SELFPAY ==
[2022-01-31 13:25] VITALS: BP 109/42; PULSE 57; RESP 20; TEMP 36.7; O2SAT 100
--- NOTE | 2022-01-31 14:40 | ED.WEAKNESS ---
HPI - Weakness General Chief complaint: Weakness Stated complaint: weakness Time Seen by Provider: 01/31/22 13:07 Source: patient History of Present Illness HPI Narrative: Patient presents with generalized weakness reports she was recently hospitalized for CHF was started on Lasix and lower extremity swelling has resolved. She saw her primary care doctor today she noted increased weakness over the past few days she had blood work done and she was called by her primary care doctor checked her to the ER as she may be dehydrated primary care also reduced from milligrams daily to 20. She denies any nausea or vomiting or diarrhea she denies any urinary symptoms although fevers, cough, congestion, shortness of breath. Related Data Home Medications Medication Instructions Recorded Confirmed [id number]-[id number] 1 tablet PO DAILY 01/02/22 01/31/22 Allergies Allergy/AdvReac Type Severity Reaction Status Date / Time calcitonin Allergy Intermediate eye itch Verified 01/31/22 09:50 and swelling mirabegron [From Myrbetriq] Allergy Intermediate swelling Verified 01/31/22 09:50 alendronate sodium Allergy Mild unknown Verified 01/31/22 09:50 Penicillins Allergy Mild hives Verified 01/31/22 09:50 risedronate sodium Allergy Mild unknown Verified 01/31/22 09:50 ciprofloxacin Allergy Unknown joint aches Verified 01/31/22 09:50 Review of Systems Review of Systems: CONSTITUTIONAL: Denies fever, chills, or sweats. EYES: Denies visual changes, redness, or discharge. ENT: Denies rhinorrhea, congestion, sore throat, or otalgia. CARDIOVASCULAR: Denies chest pain, palpitations, or edema. RESPIRATORY: Denies cough or dyspnea. GASTROINTESTINAL: Denies abdominal pain, nausea, vomiting, or diarrhea. GENITOURINARY: Denies dysuria or hematuria. SKIN: Denies rash or itching. MUSCULOSKELETAL: Denies back pain, joint pain, or myalgia. NEUROLOGIC: Denies headache, numbness, dizziness, or focal weakness. PSYCHIATRIC: Denies anxiety or depression. All systems reviewed & are unremarkable except as noted in HPI and below PMFSH Past Medical History Medical History Acute kidney injury Benign essential HTN Chronic kidney disease, stage 4 (severe) HX: anticoagulation Osteoporosis Paroxysmal atrial fibrillation Pulmonary embolism Surgical History Surgical History History of appendectomy History of lobectomy of lung Hx of cataract surgery S/P cholecystectomy Family History Family History Mother Cerebrovascular accident, Onset Age: 83 Patient's mother is Father Family history of coronary artery disease, Onset Age: 79 Patient's father is Social History Social History Social History: The patient lives home alone and she has 1 child. 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 She is . She quit smoking many years ago. She does not use any alcohol marijuana or illicit drugs. Code status full code Smoking status: Former smoker Second hand tobacco smoke exposure: No Additional smoking assessment comments: 40 to 50 years ago Alcohol intake: never Substance use: never Substance use type: does not use Gender identity (if verbalized by the patient): Female Sexual Orientation (if Verbalized by the Patient): Straight or Heterosexual Spiritual care concerns: No Exam Narrative: GENERAL: Well-appearing, well-nourished, and in no acute distress. HEAD: Normocephalic, atraumatic. EYES: PERRLA and EOMI. ENT: Nares clear, no rhinorrhea or epistaxis. Mucous membranes moist. NECK: Supple. No masses. No JVD CHEST: Clear to auscultation. No respiratory distress. No wheezes rales or rhonchi HEART: Regular rate and rhythm. No murmur heard. Normal pe
[2022-01-31] MEDS: SODIUM CHLORIDE 0.9% IV 500 ML 999 ML IV CONT (14:43)
[2022-01-31 15:24] VITALS: BP 142/50; PULSE 69; RESP 20; O2SAT 97
--- NOTE | 2022-01-31 15:47 | PC.NURSE ---
1545-PATIENT UP AND USED BEDSIDE COMMODE WITH MINIMAL ASSISTANCE. PATIENT STATES SHE FEELS SO MUCH BETTER. DENIES DIZZINESS, CHEST PAIN, OR SOB. SKIN WARM AND DRY. UPDATE TO PROVIDER.
[2022-01-31 16:21] VITALS: BP 135/55; PULSE 69; RESP 17; O2SAT 95
== END 2022-01-31 16:23 | disposition home or self-care (01) ==
PROVIDERS: Emergency Provider Emergency Medicine; PCP Family Medicine
DX: E86.0 Dehydration (principal); I12.9 Hypertensive chronic kidney disease with stage 1 through stage 4 chronic kidney disease, or unspecified chronic kidney disease; N18.4 Chronic kidney disease, stage 4 (severe); Z87.11 Personal history of peptic ulcer disease; I48.0 Paroxysmal atrial fibrillation; Z79.01 Long term (current) use of anticoagulants; Z90.2 Acquired absence of lung [part of]; Z98.49 Cataract extraction status, unspecified eye; Z87.891 Personal history of nicotine dependence
CPT/HCPCS: 36415; 80053; 81001; 83540; 83550; 83735; 83880; 85025; 96360; 99283; J7040

== ENCOUNTER 2022-02-01 15:31 | Emergency (ER) | payer MEDICARE, SELFPAY ==
--- NOTE | ~2022-02-01 | XR_ITS ---
EXAMINATION: XR chest 2V EXAM DATE: 02/01/2022 20:51 INDICATION: SOB with exertion TECHNIQUE: Frontal and lateral projections of the chest obtained and reviewed. There is no prior shayne dy for comparison. FINDINGS: The lungs are hyperinflated which can be seen with chronic obstructive pulmonary disease ( a clinical diagnosis of functional impairment), but is not diagnostic of it. The cardiomediastinal si lhouette is prominent but magnified on this AP technique. No confluent consolidation, pneumothorax or pleural effusion suspected. Some indistinct basilar reticulation, could be edema or interstitial melissa g disease. The bones are osteopenic. There are bony degenerative changes. Improvement in congestive changes compared to prior study. IMPRESSION: 1. Chronic hyperinflation. 2. Abnormal reticulation, mild edema versus chronic interstitial lung disease. Reviewed, dictated and finalized at location G.
[2022-02-01 16:02] VITALS: BP 109/45; PULSE 69; RESP 16; TEMP 36.4; O2SAT 94
--- NOTE | 2022-02-01 18:10 | PC.NURSE ---
Patient walked to room with personal walker without difficulty and in no distress from waiting room area.
[2022-02-01 18:21] VITALS: BP 154/55; PULSE 55; RESP 18; O2SAT 98
--- NOTE | 2022-02-01 18:21 | PC.NURSE ---
Pt reports continued global weakness. Noted to ambulate to room with walker.
--- NOTE | 2022-02-01 18:27 | ECG_ITS ---
Measurements Intervals [place] Rate: 60 P: 36 MT: 157 QRS: -25 QRSD: 153 T: 107 QT: 481 QTc: 484 Interpretive Statements SINUS RHYTHM LEFT BUNDLE BRANCH BLOCK [120+ ms QRS DURATION, 80+ ms Q/S IN V1/V2, 85+ ms R IN I/aVL/V5/V6] ABNORMAL EKG COMPARED TO ECG 01/02/2022 07:14:08 NO SIGNIFICANT CHANGES Electronically Signed On 02-02-2022 15:44:29 CDT by Melvin Lima M.D.
--- NOTE | 2022-02-01 19:11 | ED.GENADULT ---
HPI - General Adult General Chief complaint: Weakness Stated complaint: weakness sent by pmd Time Seen by Provider: 02/01/22 18:20 Source: patient and family History of Present Illness HPI narrative: 86-year-old female presented emerge department for evaluation of increased generalized weakness. Patient had 2 hospitalizations over the last few months. Patient was admitted to the hospital in November and then again in December. Patient states since these discharges she has felt increasingly fatigued. Patient states she is not able to walk as far as she used to without feeling fatigued. Patient states that if she walks too far she has increased weakness of her lower extremities and does have some exertional shortness of breath. At rest patient denies any current chest pain or shortness of breath. With activity patient denies any chest pain but does have some exertional shortness of breath. Patient was evaluated in the emergency department yesterday and did feel improved after a 500 mL bolus. Patient states she was able to walk around in the room and did feel improved but when she woke up in the morning she continued to have her difficult shortness of breath. Related Data Home Medications Medication Instructions Recorded Confirmed [id number]-[id number]-[id number] 1 tablet PO DAILY 01/02/22 01/31/22 Allergies Allergy/AdvReac Type Severity Reaction Status Date / Time calcitonin Allergy Intermediate eye itch Verified 01/31/22 09:50 and swelling mirabegron [From Myrbetriq] Allergy Intermediate swelling Verified 01/31/22 09:50 alendronate sodium Allergy Mild unknown Verified 01/31/22 09:50 Penicillins Allergy Mild hives Verified 01/31/22 09:50 risedronate sodium Allergy Mild unknown Verified 01/31/22 09:50 ciprofloxacin Allergy Unknown joint aches Verified 01/31/22 09:50 Review of Systems Review of Systems: CONSTITUTIONAL: Increased generalized weakness after walking longer distances EYES: Denies visual changes, redness, or discharge. ENT: Denies rhinorrhea, congestion, sore throat, or otalgia. CARDIOVASCULAR: Denies chest pain, palpitations, or edema. RESPIRATORY: Denies cough or dyspnea. GASTROINTESTINAL: Denies abdominal pain, nausea, vomiting, or diarrhea. GENITOURINARY: Denies dysuria or hematuria. SKIN: Denies rash or itching. MUSCULOSKELETAL: Denies back pain, joint pain, or myalgia. NEUROLOGIC: Denies headache, numbness, or weakness. PSYCHIATRIC: Denies anxiety or depression. [facility] Past Medical History Medical History Acute kidney injury Benign essential HTN Chronic kidney disease, stage 4 (severe) HX: anticoagulation Osteoporosis Paroxysmal atrial fibrillation Pulmonary embolism Surgical History Surgical History History of appendectomy History of lobectomy of lung Hx of cataract surgery S/P cholecystectomy Family History Family History Mother Cerebrovascular accident, Onset Age: 83 Patient's mother is Father Family history of coronary artery disease, Onset Age: 79 Patient's father is Social History Social History Social History: The patient lives home alone and she has 1 child. 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 She is . She quit smoking many years ago. She does not use any alcohol marijuana or illicit drugs. Code status full code Smoking status: Former smoker Second hand tobacco smoke exposure: No Additional smoking assessment comments: 40 to 50 years ago Alcohol intake: never Substance use: never Substance use type: does not use Gender identity (if verbalized by the patient): Female Sexual Orientation (if Verbalized by the Patient): Straight or Heterosexual Spiritual care concerns: No
[2022-02-01 19:17] LABS: Basophils Percent Auto 0.4 % (0.2-1.2); Eosinophils Absolute Auto 0.3 K/mm3 (0-0.3); Eosinophils Percent Auto 3.3 % (0-4.4); Hemoglobin 10.9 g/dL (12.0-15.0); Immature Granulocyte Absolute 0.06 K/mm3 (0.00-0.031); Immature Granulocyte Percent A 0.6 % (0-0.5); Lymphocytes Absolute Auto 3.37 K/mm3 (0.9-3.2); Lymphocytes Percent Auto 34.1 % (18.3-44.2); Mean Corpuscular HGB Conc 31.1 g/dl (32-36); Mean Corpuscular Hemoglobin 30.1 pg (26-34); Mean Corpuscular Volume 96.7 fl (80-100); Mean Platelet Volume 10.6 fl (7.4-10.4); Monocytes Absolute Auto 0.7 K/mm3 (0.1-0.6); Monocytes Percent Auto 6.6 % (2.6-8.5); Neutrophils Absolute Auto 5.4 K/mm3 (1.3-6.7); Platelet Count Result 212 k/mm3 (150-375); Red Blood Count 3.62 M/mm3 (4.2-5.4); White Blood Count 9.9 K/mm3 (4.5-10.0)
[2022-02-01 19:20] VITALS: BP 138/51; PULSE 102; RESP 18; O2SAT 98
[2022-02-01 19:31] LABS: Alanine Aminotransferase 18 U/L (4-35); Albumin Level 3.6 g/dL (3.5-5.1); Alkaline Phosphatase 55 U/L (38-126); Anion Gap 4 mmol/L (8-16); Aspartate Amino Transferase 36 U/L (14-36); Bilirubin,Total 0.3 mg/dL (0.2-1.3); Blood Urea Nitrogen 51 mg/dL (7-17); Calcium 8.4 mg/dL (8.4-10.2); Carbon Dioxide 29 mmol/L (22-30); Chloride 102 mmol/L (98-107); Estimated CRCL calculation 10 ml/min; Estimated Glomerular Filt Rate 15; Glucose 99 mg/dL (65-110); Lactic Acid Reflex 0.9 mmol/L (0.7-2.1); Sodium 135 mmol/L (137-145)
--- NOTE | 2022-02-01 19:43 | PC.NURSE ---
pt ambulated with walker without difficulty to bathroom.
[2022-02-01 19:53] LABS: Add Urine Microscopic? YES; Appearance Urine Clear (Clear); Bilirubin Urine Negative (Negative); Blood Urine Negative (Negative); Color Urine Yellow (Yellow); Glucose Urine UA Negative (Negative); Ketones Urine Negative (Negative); Leukocyte Esterase Ur 1+ LEU/UL (Negative); Nitrate Urine Negative (Negative); Protein Urine Negative (Negative); RBC Urine 0-2 /hpf (0-2); Specific Grav Ur 1.004 (1.001-1.035); Squamous Epithelial Cell Urine Rare /hpf (Few); Urobilinogen Urine Negative mg/dL (<2.0)
[2022-02-01 21:07] VITALS: BP 133/55; PULSE 60; RESP 18; O2SAT 98
[2022-02-01 21:25] LABS: NT Pro B Type Natriuretic Pept 1450 pg/mL (5-100)
[2022-02-01 22:25] VITALS: BP 120/88; PULSE 78; RESP 18; O2SAT 98
== END 2022-02-01 22:25 | disposition home or self-care (01) ==
PROVIDERS: Emergency Provider Emergency Medicine; PCP Family Medicine
DX: R53.1 Weakness (principal); I12.9 Hypertensive chronic kidney disease with stage 1 through stage 4 chronic kidney disease, or unspecified chronic kidney disease; N18.4 Chronic kidney disease, stage 4 (severe); I48.91 Unspecified atrial fibrillation; R06.02 Shortness of breath
CPT/HCPCS: 36415; 71046; 80053; 81001; 83605; 83880; 85025; 87086; 87088; 93005; 99283

== ENCOUNTER 2022-03-24 15:00 | Outpatient (RCR) | payer MEDICARE, SELFPAY ==
--- NOTE | 2022-02-23 13:57 | PTOPEVAL ---
Thank you for referring Mariya Shah to [facility].? The patient is scheduled to be seen for therapy? 2x/week for 4 weeks. Please review, sign, date and return this plan of care DYLAN. I agree with and certify that the following plan of care is medically necessary. Referring Physician Date Attending Provider: PAM Borjas Diagnosis LE weakness Onset Nov 2021 Additional Evaluation Detail Admitted to hospital 12/03 for 2 wks due to Pneumonia and in Dec for 2 days due to CHF. Subjective Information She feels she is weak since Query Text:As Reported By Patient/ she was in the hospital. She c Family /o her legs will being numb at time. She c/o her feet being cold and numb. She is unable to nicolasa walking in the community due to fatigue and symptoms. She is able to nicolasa 5 min of standing for ADL's/ IADL's. Denies any falls. Has a walker at home, but does not use it. She questions if the changes are due to the medication she is taking. Prior Level of Function Activity Level (Last 3 Months) Activity of Daily Living Ability Independent Indoor/Home Mobility Independent Community Mobility Independent Cooking Yes Cleaning No Laundry Yes Shopping No Driving No Home Setting Home Type House Environmental Barriers Stairs, Threshold Living Situation Alone Support Available Local Family Support Mobility Assistive Devices (Used Last 3 Walker, Wheeled Months) Pain Assessment Self Report Self Report Pain Level 0 Lower Extremity Muscle Strength Testing Bilateral Hip Flexion Strength 3+ Fair + Hip Extension Strength 3 Fair Hip Abduction Strength 3 Fair Bilateral Knee Flexion Strength 3+ Fair + Knee Extension Strength 4- Good - Ankle Strength Bilateral Ankle Dorsiflexion Strength 4- Good - Ankle Strength Comments rolo heel raises: 20 reps Muscle Length Testing Muscle Length Testing Two-Joint Hip Flexor Shortened Muscles Short (R) Iliopsoas,Short (L) Iliopsoas,Short (R) Rectus Femoris,Short (L) Rectus Femoris Piriformis w/Hip Flexion <90 Degrees (R) Moderate Tightness,(L)
--- NOTE | 2022-03-24 15:48 | PTOPEVAL ---
Thank you for referring Mariya Shah to [facility].?Sge was referred to therapy due to LE weakness. Mariya has attended 8 therapy visits from 02/23/22 to 03/24/22 to address her LE weakness. As a result of skilled therapy services she demonstrates improved LE strength, improved endurance with activities at home, improved functional mobility and decreased fall risk. TU sec at eval, 11 sec update 5 reps sit<>stand: 10 sec at eval and 11 sec at update Stevens balance: 43/56 at eval and 49/56 update 2 min walk test: 143 ft with O2 sat 87% at eval and 395 ft with O2 sats at 95% at update. Assessment: Mariya has met to partially met her therapy goals at this time. She demonstrates understanding and compliance with her HEP and walking program. She demonstrates improved functional mobility as a result of therapy services. Will DC skilled PT services at this time. Please review, sign, date and return this discharge summary DYLAN. Referring Physician Date Attending Provider: PAM Borjas Diagnosis LE weakness Onset Nov 2021 Additional Evaluation Detail Admitted to hospital 12/03 for 2 wks due to Pneumonia and in Dec for 2 days due to CHF. Subjective Information Reports she does feel stronger Query Text:As Reported By Patient/ since starting therapy. Family Denies any numbness of her legs/feet. She is walking more outside and in the house. She is able to nicolasa 20 min of standing for ADL's/IADL's. Pain Assessment Self Report Pain Level 0 Lower Extremity Muscle Strength Testing Hip Strength Bilateral Hip Flexion Strength 4+ Good + Hip Extension Strength 3+ Fair + Hip Abduction Strength 3 Fair Knee Strength Bilateral Knee Flexion Strength 4- Good - Knee Extension Strength 4+ Good + Ankle Strength Bilateral Ankle Dorsiflexion Strength 5 Normal Ankle Strength Comments rolo heel raises: 20 reps Balance Assessment STEVENS Balance Evaluation Total Score (49/56 points) Comments single leg balance: 1 sec rolo Timed Up and Go Test (TUG) (Seconds) 11 5 Time Sit to Stand Time in Seconds 11 5 Time Sit to Stand Comments use of UE Gait Assessment 2 Minute Walk Total Distance Walked (feet) 395 2 Minute Walk Gait Speed Score (feet/ 3.29 second) 2 Minute Walk Test Comments at rest: O2 sats: 95%, HR: 61 post walk: O2 sats: 95%, fatigue with walking PT Clinical Summary Pt referred to therapy due to LE weakness. Mariya has attended 8 therapy visits from 02/23/22 to 03/24/22 to address her LE weakness.
== END 2022-03-27 10:40 | disposition home or self-care (01) ==
LOC: ANHPT 15:00
PROVIDERS: PCP Family Medicine; Visit Provider Nurse Practitioner
DX: R53.1 Weakness (principal); I50.9 Heart failure, unspecified
CPT/HCPCS: 97110; 97112; 97162; 97530

== ENCOUNTER 2022-05-17 14:35 | Observation (INO) | payer MEDICARE, SELFPAY ==
[2022-05-17] VITALS (37 sets, daily range): BP systolic 118–205; BP diastolic 37–85; PULSE 35–85; RESP 16–25; TEMP 36.6–36.7; O2SAT 94–100; BMI 20.7
--- NOTE | ~2022-05-17 | US_ITS ---
US renal BI DATE: 05/18/2022 14:19 INDICATION: Chronic kidney disease. Hypertension. TECHNIQUE: Real-time imaging of kidneys and urinary bladder COMPARISON: 11/25/2021 bilateral renal ultrasound examination FINDINGS: The right kidney measures roughly 8 cm length, left kidney 8.3 cm. No renal mass lesion or hydronephrosis is detected. The urinary bladder is relatively evacuated, unremarkable. IMPRESSION: No evidence of obstructive uropathy Reviewed, dictated and finalized at Location A. Reviewed, dictated and finalized at location A.
--- NOTE | ~2022-05-17 | XR_ITS ---
XR chest 2V 05/17/2022 15:19 Indication: Chest pain Procedure: 2 view chest Comparison: Comparison to multiple prior studies sequentially, with oldest reviewed study dated 11/26. Findings: Cardiomegaly. Small right pleural effusion. Bibasilar atelectasis. There is atherosclerosis of the aorta. There is apical pleural thickening/scarring which is chronic. There is a chronic lower thoracic wedge compression fracture. Impression: 1: Bibasilar atelectasis. 2: Small right pleural effusion. 3: Cardiomegaly. Reviewed, dictated and finalized at location A. Impression: 1: Bibasilar atelectasis. 2: Small right pleural effusion. 3: Cardiomegaly.
--- NOTE | 2022-05-17 14:42 | PC.NURSE ---
Dr. Oliveira at bedside to assess pt.
--- NOTE | 2022-05-17 14:46 | ECG_ITS ---
Measurements Intervals [place] Rate: 42 P: [place]: 0 QRS: -33 QRSD: 149 T: 75 QT: 493 QTc: 413 Interpretive Statements JUNCTIONAL RHYTHM LEFT AXIS DEVIATION LEFT BUNDLE BRANCH BLOCK BASELINE ARTIFACT- I, II, III, AVR, AVL, AVF ABNORMAL ECG Electronically Signed On 05-17-2022 14:58:10 CDT by Jagjit Pan D.O.
--- NOTE | 2022-05-17 14:46 | ED.SOB ---
HPI - SOB/Dyspnea General Chief Complaint: Shortness of Breath/Dyspnea Stated Complaint: SOB,CP Time Seen by Provider: 05/17/22 14:41 Source: patient History of Present Illness HPI Narrative: Patient presents with chest pain and shortness of breath. Patient reports recurring shoulder pain radiating up into her neck she had an episode of that this morning however this episode was associated midsternal chest pain causing some shortness of breath she was concerned she was given the ER for further evaluation. Sore symptoms or chest pain has improved. Pain was initially achy,, no radiation, no clear aggravating or alleviating factors. She denies any lightheadedness dizziness denies any nausea vomiting or diaphoresis. Related Data Home Medications Medication Instructions Recorded Confirmed [id number]-[id number]-[id number] tablet 1 tablet PO DAILY 01/02/22 01/31/22 Allergies Allergy/AdvReac Type Severity Reaction Status Date / Time calcitonin Allergy Intermediate eye itch Verified 02/08/22 07:55 and swelling mirabegron [From Myrbetriq] Allergy Intermediate swelling Verified 02/08/22 07:55 alendronate sodium Allergy Mild unknown Verified 02/08/22 07:55 Penicillins Allergy Mild hives Verified 02/08/22 07:55 risedronate sodium Allergy Mild unknown Verified 02/08/22 07:55 ciprofloxacin Allergy Unknown joint aches Verified 02/08/22 07:55 Review of Systems Review of Systems: CONSTITUTIONAL: Denies fever, chills, or sweats. EYES: Denies visual changes, redness, or discharge. ENT: Denies rhinorrhea, congestion, sore throat, or otalgia. CARDIOVASCULAR: Denies palpitations, or edema. RESPIRATORY: Reports shortness of breath GASTROINTESTINAL: Denies abdominal pain, nausea, vomiting, or diarrhea. GENITOURINARY: Denies dysuria or hematuria. SKIN: Denies rash or itching. MUSCULOSKELETAL: Denies back pain,or myalgia. NEUROLOGIC: Denies headache, numbness, dizziness, or weakness. PSYCHIATRIC: Denies anxiety or depression. All systems reviewed & are unremarkable except as noted in HPI and below PMFSH Past Medical History Medical History Acute kidney injury Benign essential HTN Chronic kidney disease, stage 4 (severe) HX: anticoagulation Osteoporosis Paroxysmal atrial fibrillation Pulmonary embolism Surgical History Surgical History History of appendectomy History of lobectomy of lung Hx of cataract surgery S/P cholecystectomy Family History Family History Mother Cerebrovascular accident, Onset Age: 83 Patient's mother is Father Family history of coronary artery disease, Onset Age: 79 Patient's father is Social History Social History Social History: The patient lives home alone and she has 1 child. 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 She is . She quit smoking many years ago. She does not use any alcohol marijuana or illicit drugs. Code status full code Smoking status: Former smoker Tobacco type: cigarettes Second hand tobacco smoke exposure: No Additional smoking assessment comments: 40 to 50 years ago Alcohol intake: never Substance use: never Substance use type: does not use Gender identity (if verbalized by the patient): Female Sexual Orientation (if Verbalized by the Patient): Straight or Heterosexual Spiritual care concerns: No Exam Narrative: GENERAL: Well-appearing, well-nourished, and in no acute distress. HEAD: Normocephalic, atraumatic. EYES: PERRLA and EOMI. ENT: Nares clear, no rhinorrhea or epistaxis. Mucous membranes moist. NECK: Supple. No masses. No JVD CHEST: Clear to auscultation. No respiratory distress. No wheezes rales or rhonchi HEART: Regular rate and rhythm. No murmur heard. N
[2022-05-17 15:10] LABS: Basophils Absolute Auto 0.1 K/mm3 (0.0-0.1); Basophils Percent Auto 0.5 % (0.2-1.2); Eosinophils Absolute Auto 0.1 K/mm3 (0-0.3); Eosinophils Percent Auto 0.9 % (0-4.4); Hematocrit 39.1 % (37.0-47.0); Hemoglobin 12.4 g/dL (12.0-15.0); Immature Granulocyte Absolute 0.05 K/mm3 (0.00-0.031); Immature Granulocyte Percent A 0.5 % (0-0.5); Lymphocytes Absolute Auto 3.73 K/mm3 (0.9-3.2); Lymphocytes Percent Auto 36.4 % (18.3-44.2); Mean Corpuscular HGB Conc 31.7 g/dl (32-36); Mean Corpuscular Hemoglobin 30.3 pg (26-34); Mean Corpuscular Volume 95.6 fl (80-100); Mean Platelet Volume 10.7 fl (7.4-10.4); Monocytes Absolute Auto 0.6 K/mm3 (0.1-0.6); Monocytes Percent Auto 6.2 % (2.6-8.5); Neutrophils Absolute Auto 5.7 K/mm3 (1.3-6.7); Neutrophils Percent Auto 55.5 % (45.5-73.1); Platelet Count Result 217 k/mm3 (150-375); Red Blood Count 4.09 M/mm3 (4.2-5.4); Red Cell Distribution Width 15.5 % (11.5-14.5); White Blood Count 10.3 K/mm3 (4.5-10.0)
[2022-05-17 15:20] LABS: Alanine Aminotransferase 81 U/L (6-35); Albumin Level 4.3 g/dL (3.5-5.1); Alkaline Phosphatase 91 U/L (38-126); Anion Gap 7 mmol/L (8-16); Aspartate Amino Transferase 92 U/L (14-36); Bilirubin,Total 0.2 mg/dL (0.2-1.3); Blood Urea Nitrogen 53 mg/dL (7-17); Calcium 8.7 mg/dL (8.4-10.2); Carbon Dioxide 26 mmol/L (22-30); Chloride 105 mmol/L (98-107); Estimated CRCL calculation 10 ml/min; Estimated Glomerular Filt Rate 14; Glucose 112 mg/dL (65-110); Potassium 5.4 mmol/L (3.4-5.0); Sodium 138 mmol/L (137-145)
[2022-05-17 15:23] LABS: INR 1.2; Prothrombin Time 14.5 Seconds (11.1-14.7)
[2022-05-17 15:24] LABS: Partial Thromboplastin Time 30.5 SECONDS (22.3-36.8)
[2022-05-17 15:32] LABS: NT Pro B Type Natriuretic Pept 5790 pg/mL (5-100); Troponin I < 0.012 ng/mL (0.000-0.034)
[2022-05-17 15:39] LABS: Appearance Urine Clear (Clear); Bilirubin Urine Negative (Negative); Blood Urine Negative (Negative); Color Urine Yellow (Yellow); Glucose Urine UA Negative (Negative); Ketones Urine Negative (Negative); Leukocyte Esterase Ur Negative LEU/UL (Negative); Nitrate Urine Negative (Negative); Protein Urine Negative (Negative); Urobilinogen Urine 0.2 mg/dL (<2.0); pH Urine 5.5 (5.0-9.0)
[2022-05-17 15:44] LABS: Bacteria Urine Trace /hpf; Mucus Urine Rare /lpf; RBC Urine 0-2 /hpf (0-2); Squamous Epithelial Cell Urine Rare /hpf (Few); WBC Urine 0-3 /hpf
[2022-05-17 15:45] LABS: Add Urine Microscopic? NO
[2022-05-17] MEDS: CALCIUM GLUCONATE 1,000 MG/10 ML VIAL 1000 MG IV PUSH (16:03)
[2022-05-17 16:34] LABS: SARS-CoV-2 RNA PCR Negative
--- NOTE | 2022-05-17 17:33 | PM.IMHP ---
H&P: HPI History of Present Illness Date/Time: 05/17/22 17:33 Chief Complaint: Right shoulder and right neck pain Narrative: This is an 86-year-old female patient who has a past medical history of atrial fibrillation. Patient has had multiple medication changes. She was placed on lisinopril and then taken off. The patient is currently on amiodarone which had been decreased as well. The patient is also on a beta-aleah metoprolol. The patient stated that her heart rate is usually around the 60s she does have blood pressure monitor at home and checks her blood pressure and her pulse. However today the patient presented with chest pain and shortness of breath. The patient was complaining of right shoulder pain that radiated up to her neck. This episode began this morning she also had midsternal chest pain causing her to have some shortness of breath. This was cause of concerned and led to her visit to the emergency room here at [facility]. Patient's heart rate in the Emergency ranged anywhere from 37 to 85.bnp [id number] and alt 81. creat 3.10. Potassium 5.4. The patient was given calcium gluconate. Patient's pain was then relieved. The patient is being admitted for observation on the date of service of 05/17/2022. Review of Systems Review of Systems: All systems reviewed & are unremarkable except as noted in HPI and below Constitutional: Constitutional: Reports as per HPI and Reports no additional constitutional complaints Eyes: Eyes: Reports as per HPI and Reports no additional eye complaints ENT: Reports system reviewed and no additional complaints, except as documented and Reports Normal hearing present Cardiovascular: Cardiovascular: Reports no additional cardiovascular complaints Respiratory: Respiratory: Reports no additional respiratory complaints and Reports no additional respiratory complaints Gastrointestinal: Gastrointestinal: Reports as per HPI and Reports no additional gastrointestinal complaints Musculoskeletal: Musculoskeletal: Reports no additional musculoskeletal complaints Integumentary/Breasts: Skin/Breast: Reports system reviewed and no additional complaints, except as docu and Reports as per HPI Neurologic: Reports system reviewed and no additional complaints, except as documented, Reports as per HPI and Reports Normal hearing present Psychiatric: Psychiatric: Reports no additional psychiatric complaints and Reports as per HPI Endocrine: Endocrine: Reports no additional endocrine complaints Hematologic/Lymphatic: Hematologic/Lymphatic: Reports no additional hematologic/lymphatic complaints Allergic/Immunologic: Allergic/Immunologic: Reports no additional allergic/immunologic complaints PMFSH Past Medical History Medical History Acute kidney injury Benign essential HTN Chronic kidney disease, stage 4 (severe) HX: anticoagulation Osteoporosis Paroxysmal atrial fibrillation Pulmonary embolism Surgical History Surgical History History of appendectomy History of lobectomy of lung Hx of cataract surgery S/P cholecystectomy Family History Family History Mother Cerebrovascular accident, Onset Age: 83 Patient's mother is Father Family history of coronary artery disease, Onset Age: 79 Patient's father is Social History Social History Social History: The patient lives home alone and she has 1 child. 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 She is . She quit smoking many years ago. She does not use any alcohol marijuana or illicit drugs. Code status full code Smoking status: Former smoker Tobacco type: cigarettes Second hand tobacco smoke exposure: No Additional smoking assessment comments: 40 to 50
--- NOTE | 2022-05-17 17:45 | PC.NURSE ---
MD made aware of patient's elevated BP. No new orders at this time. Patient denies complaints.
--- NOTE | 2022-05-17 19:06 | ECG_ITS ---
Measurements Intervals [place] Rate: 57 P: 77 [place]: 188 QRS: -29 QRSD: 154 T: 96 QT: 490 QTc: 480 Interpretive Statements SINUS BRADYCARDIA WITH SINUS ARRHYTHMIA LEFT BUNDLE BRANCH BLOCK BASELINE ARTIFACT- I, II, III, AVL, AVF ABNORMAL ECG Electronically Signed On 05-18-2022 6:56:00 CDT by Jagjit Pan D.O.
[2022-05-17 19:07] LABS: Troponin I 0.016 ng/mL (0.000-0.034)
[2022-05-17] MEDS: ALBUTEROL SULFATE NEB 2.5 MG/3 ML INH 5 MG INHALATION (19:17)
--- NOTE | 2022-05-17 19:22 | PC.NURSE ---
Patient report given to DB Lo. All questions answered and care of patient transferred.
[2022-05-17 19:45] LABS: Anion Gap 4 mmol/L (8-16); Blood Urea Nitrogen 52 mg/dL (7-17); Calcium 9.2 mg/dL (8.4-10.2); Carbon Dioxide 29 mmol/L (22-30); Chloride 105 mmol/L (98-107); Estimated CRCL calculation 10 ml/min; Estimated Glomerular Filt Rate 14; Glucose 98 mg/dL (65-110); Potassium 5.6 mmol/L (3.4-5.0); Sodium 138 mmol/L (137-145)
--- NOTE | 2022-05-17 21:23 | ADMGEN ---
This patient, Mariya Shah, was admitted to IMU Room 231-01. Patient/family oriented to hospital policies and general routines including ID bracelet, bed and alarms, visiting hours, pain management, procedures, bathroom and other care routines, personal items, smoking policy, room service/diet, and visiting hours. Information on how to activate the Rapid Response Team has been discussed. Patient/Family are encouraged to report perceived risks to care and to ask questions if they do not understand what they are told or what they should do.
[2022-05-17] MEDS: hydrALAZINE HCL 20 MG/ML VIAL 10 MG IV PUSH (21:38)
[2022-05-17] MEDS: INSULIN HUMAN REGULAR (*BKC) 100 UNITS/ML 10 UNITS IV PUSH (22:47)
[2022-05-17] MEDS: SODIUM BICARBONATE 8.4% 50 MEQ/50 ML SYRINGE IV PUSH (22:47)
[2022-05-17] MEDS: DEXTROSE 50% 25 GM/50 ML SYRINGE IV PUSH (22:47)
[2022-05-17] MEDS: APIXABAN 2.5 MG TABLET PO (23:01)
[2022-05-18] VITALS (11 sets, daily range): BP systolic 129–164; BP diastolic 41–64; PULSE 60–68; RESP 16–20; TEMP 36.3–36.8; O2SAT 93–98; BMI 20.7
[2022-05-18 01:10] LABS: Anion Gap 8 mmol/L (8-16); Blood Urea Nitrogen 52 mg/dL (7-17); Calcium 8.7 mg/dL (8.4-10.2); Carbon Dioxide 28 mmol/L (22-30); Chloride 105 mmol/L (98-107); Estimated CRCL calculation 11 ml/min; Estimated Glomerular Filt Rate 15; Glucose 131 mg/dL (65-110); Potassium 4.2 mmol/L (3.4-5.0); Sodium 141 mmol/L (137-145)
[2022-05-18 05:38] LABS: Basophils Percent Auto 0.4 % (0.2-1.2); Eosinophils Absolute Auto 0.1 K/mm3 (0-0.3); Hematocrit 34.9 % (37.0-47.0); Hemoglobin 11.3 g/dL (12.0-15.0); Immature Granulocyte Absolute 0.05 K/mm3 (0.00-0.031); Immature Granulocyte Percent A 0.6 % (0-0.5); Lymphocytes Absolute Auto 2.93 K/mm3 (0.9-3.2); Lymphocytes Percent Auto 32.5 % (18.3-44.2); Mean Corpuscular HGB Conc 32.4 g/dl (32-36); Mean Corpuscular Hemoglobin 30.5 pg (26-34); Mean Corpuscular Volume 94.1 fl (80-100); Mean Platelet Volume 11.2 fl (7.4-10.4); Monocytes Absolute Auto 0.7 K/mm3 (0.1-0.6); Monocytes Percent Auto 7.9 % (2.6-8.5); Neutrophils Absolute Auto 5.2 K/mm3 (1.3-6.7); Neutrophils Percent Auto 57.6 % (45.5-73.1); Platelet Count Result 197 k/mm3 (150-375); Red Blood Count 3.71 M/mm3 (4.2-5.4); Red Cell Distribution Width 15.4 % (11.5-14.5)
[2022-05-18 06:03] LABS: Alanine Aminotransferase 58 U/L (6-35); Albumin Level 3.1 g/dL (3.5-5.1); Alkaline Phosphatase 65 U/L (38-126); Anion Gap 2 mmol/L (8-16); Aspartate Amino Transferase 62 U/L (14-36); Bilirubin,Total 0.5 mg/dL (0.2-1.3); Blood Urea Nitrogen 53 mg/dL (7-17); Calcium 8.6 mg/dL (8.4-10.2); Carbon Dioxide 31 mmol/L (22-30); Chloride 108 mmol/L (98-107); Estimated CRCL calculation 12 ml/min; Estimated Glomerular Filt Rate 16; Glucose 93 mg/dL (65-110); Magnesium 2.3 mg/dL (1.6-2.3); Potassium 5.1 mmol/L (3.4-5.0); Sodium 141 mmol/L (137-145)
[2022-05-18] MEDS: APIXABAN 2.5 MG TABLET PO (08:25)
[2022-05-18] MEDS: OPTI-GEN TAB 1 TABLET PO (08:25)
[2022-05-18] MEDS: MAGNESIUM OXIDE 200 MG TABLET PO (08:26)
[2022-05-18] MEDS: hydrALAZINE HCL 20 MG/ML VIAL 10 MG IV PUSH (08:27)
--- NOTE | 2022-05-18 09:13 | PM.CNCAR ---
Assessment and Plan Assessment and plan (1) Chest pain: Qualifiers: Chest pain type: unspecified Qualified Code(s): R07.9 - Chest pain, unspecified Code(s): R07.9 - Chest pain, unspecified Status: Acute Plan This is an 86-year-old lady with a history of paroxysmal atrial fibrillation chronic left bundle branch block who is taking amiodarone and metoprolol for this. She entered the hospital with some right-sided neck pain. There is no objective evidence of acute coronary syndrome. She feels well this morning. She did have a junctional rhythm on the 1st ECG yesterday. She was not significantly bradycardic but this was the principal reason for consulting us to see her today. I am going to recommend reducing her beta-aleah dosage from 100 to 50 mg daily because of this. Her amiodarone will be continued for now. She appears to be stable troponin levels are negative. I believe from my perspective she is stable enough to be discharged back to home. She does have follow-up scheduled with my partner later this month in the office. Further medical titration might be necessary if Julian arrhythmias continue to occur. Jhonny Leach MD [facility] History of Present Illness History of Present Illness Consult date/time: 05/18/22 09:13 Consult reason: chest pain Reason For Visit: Bradycardia Narrative: This is an 86-year-old lady unknown to me prior to this consult but seen in my practice by Dr. Partida. She has a history of paroxysmal atrial fibrillation has been seen here in the hospital couple of times earlier this year for evaluation and management of her atrial fib. She came to the hospital emergency room yesterday middle of the day with some symptoms of pain in the right side of the neck and radiating into the right shoulder. The symptoms began while she was at rest in her home. She lives alone called her son who lives across the street. He brought her to the emergency room to be evaluate the discomfort she thinks altogether lasted for between 1 and 2 hours and then subsided on its own. She does not believe it responded to any medication she is she was given at the hospital. She has not had symptoms like this before. She is not known to have coronary artery disease and does not have any history of exertional chest pain dyspnea. She does not have any orthopnea PND or edema. In addition your history of paroxysmal AFib she has a chronic left bundle branch block and echocardiographic evidence of diastolic noncompliance. On arrival to the emergency room her ECG of course was indicative of chronic left bundle branch block therefore not helpful in terms of diagnosing acute coronary syndrome. Troponin levels however were normal x3 sets. She had also has significant chronic kidney disease with creatinine between 2.8 and 3 and follows with Nephrology for that. She feels well this morning and denies any other complaints. Her ECGs initially demonstrated a junctional rhythm with chronic left bundle and retrograde atrial activation. A subsequent EKG showed sinus rhythm. She has no history of syncope or presyncope. Her medical regimen regarding her arrhythmias consist of apixaban, amiodarone 200 mg daily and metoprolol 100 mg daily. Review of Systems Constitutional: Constitutional: Reports no additional constitutional complaints Eyes: Eyes: Reports no additional eye complaints ENT: Reports system reviewed and no additional complaints, except as documented Cardiovascular: Cardiovascular: Reports as per HPI Respiratory: Respiratory: Reports no additional respiratory complaints Gastrointestinal: Gastrointestinal: Reports no additional gastrointestinal complaints Musculoskeletal: Musculoskeletal: Reports back pain Integumentary/Breasts: Skin/Breast: Reports system reviewed and no additional complaints, except as docu Neurologic: Reports system reviewed and no additional complaints, except as documented Endocrine: Endo
[2022-05-18] MEDS: METOPROLOL SUCCINATE EXT REL 50 MG TABCR PO (09:51)
[2022-05-18] MEDS: AMIODARONE HCL 200 MG TABLET PO (09:51)
[2022-05-18 11:48] LABS: Potassium 4.6 mmol/L (3.4-5.0)
[2022-05-18 13:50] LABS: Creatine Kinase 27 U/L (30-135)
--- NOTE | 2022-05-18 14:05 | PCNSR ---
On 05/18/22, the student, Mariya Brooke, provided care and completed [facility] documentation on this patient. I have reviewed the student's documentation and agree with the findings.
--- NOTE | 2022-05-18 14:08 | PM.CNNEP ---
Assessment and Plan Additional Plan 1. patient's chronic kidney disease stage 4. This is likely due to hypertension. Her GFR had dropped from 24 to 14. Repeat was still low in spite of hydration. Etiology for the drop could be progression of chronic kidney disease. Dehydration is still a possibility. She is still on diuretics. She did not change her medications otherwise and she does not look toxic as if she had an infection. At this point will get a renal ultrasound and urine electrolytes. I still think she can go home. From the kidney standpoint this has been an outpatient workup. 2. The patient has atrial fibrillation. She is on anticoagulants. 3. The patient has hypertension. Her blood pressure is well controlled. It is not overly controlled. 4. The patient has metabolic acidosis from the renal disease. She is on sodium bicarbonate for this. Her CO2 is elevated today. I think will stop her outpatient bicarbonate. 5. patient has pulmonary disease and she is on p.r.n. albuterol. History of Present Illness Reason for Consult Consult date: 05/18/22 Chief Complaint Chief complaint: Bradycardia History of Present Illness Narrative: Mariya is a very pleasant 86-year-old female who has multiple medical problems including atrial fibrillation on anticoagulants, chronic kidney disease stage 4, hypertension, history of pulmonary embolism, osteoporosis. patient came to see me in the office a couple of weeks ago. She was feeling well but her GFR had dropped from 24-14 surprisingly. There is no clear reason why except that it was hot outside when she had the blood work done and possibly she was dehydrated. I asked her to hydrate and repeat the labs. She did this Two days ago and the GFR was still low. yesterday the patient started having some right shoulder and right neck pain. She was worried it was her heart so she came to the emergency room. Her troponins were normal. Her creatinine was about the same. She was admitted for observation. Cardiology saw the patient and said that she could go home. Renal consultation was requested because of the high creatinine. The patient denies any bloody urine, foamy urine, kidney stones, or bladder infections. She does not have any swelling. She is on diuretics. Review of Systems Constitutional: Constitutional: Reports no additional constitutional complaints Eyes: Eyes: Reports no additional eye complaints ENT: Reports system reviewed and no additional complaints, except as documented Cardiovascular: Cardiovascular: Reports no additional cardiovascular complaints Respiratory: Respiratory: Reports no additional respiratory complaints Gastrointestinal: Gastrointestinal: Reports no additional gastrointestinal complaints Genitourinary: Genitourinary: Reports no additional female genitourinary complaints Musculoskeletal: Musculoskeletal: Reports no additional musculoskeletal complaints Integumentary/Breasts: Skin/Breast: Reports system reviewed and no additional complaints, except as docu Neurologic: Reports system reviewed and no additional complaints, except as documented Psychiatric: Psychiatric: Reports no additional psychiatric complaints Endocrine: Endocrine: Reports no additional endocrine complaints [facility] Past Medical History Medical History Acute kidney injury Benign essential HTN Chronic kidney disease, stage 4 (severe) HX: anticoagulation Osteoporosis Paroxysmal atrial fibrillation Pulmonary embolism Surgical History Surgical History History of appendectomy History of lobectomy of lung Hx of cataract surgery S/P cholecystectomy Family History Family History Mother Cerebrovascular accident, Onset Age: 83 Patient's mother is Father Family history of
--- NOTE | 2022-05-18 14:21 | PCNSR ---
On 05/18/22, the student, Donavan Moss, provided care and completed [facility] documentation on this patient. I have reviewed the student's documentation and agree with the findings.
[2022-05-18 14:40] LABS: Creatinine Urine 62.8 mg/dL
[2022-05-18 14:45] LABS: Sodium Urine Random 132 meq/L
--- NOTE | 2022-05-18 15:57 | PM.DS ---
DS: Admitting Diagnosis Discharge Date 05/18/22 Admitting Diagnosis Chest tightness DS: Discharge Diagnosis Discharge Diagnosis (1) Chest pain: Qualifiers: Chest pain type: unspecified Qualified Code(s): R07.9 - Chest pain, unspecified Code(s): R07.9 - Chest pain, unspecified Status: Acute (2) Atrial fibrillation with slow ventricular response: Code(s): I48.91 - Unspecified atrial fibrillation Status: Acute (3) Hyperkalemia: Code(s): E87.5 - Hyperkalemia Status: Acute (4) Acute kidney injury: Code(s): N17.9 - Acute kidney failure, unspecified Status: Acute (5) Benign essential HTN: Code(s): I10 - Essential (primary) hypertension Status: Acute (6) History of pulmonary embolism: Code(s): Z86.711 - Personal history of pulmonary embolism Status: Acute (7) Elevated LFTs: Code(s): R79.89 - Other specified abnormal findings of blood chemistry Status: Acute DS: Summary Hospital Course Reason for hospitalization: 86-year-old female paroxysmal AFib who presents with right-sided neck and shoulder pain as well as chest tightness. Please see H&P for details. Hospital Course: On admission EKG showed left axis deviation, left bundle branch block and a junctional rhythm with a rate of 42. The bundle branch block is chronic. She is on amiodarone and metoprolol both of which were stopped. Potassium was elevated to as high as 5.6. She had acute kidney injury with a creatinine of 3.2 and BUN of 52. LFTs were elevated with AST of 92 and ALT of 81. BNP was 5790. Troponin was negative x2. Urine was essentially clear. Urine sodium was 132. Chest x-ray showed bibasilar atelectasis and small right pleural effusion. Renal ultrasound showed no evidence of obstructive uropathy. Her hyperkalemia was treated appropriately in the ED. we held her Lasix. Potassium normalized. BUN improved 53 with creatinine 2.8 which is closer to her baseline. Nephrology and Cardiology were consulted and adjustments were made in her medications. LFTs were trending downward. His felt that her bradycardia was causing hepatic congestion. Heart rate improved. We were able to resume amiodarone and a lower dose metoprolol. She was monitored on telemetry with these doses and did well. She overall did well and was able to be discharged home on 05/18/22. Status at Discharge Cognitive/behavioral status at discharge: Stable Time Spent with Patient Time attestation: Total time spent providing and/or coordinating discharge services: 35 minutes Time spent: Greater than 30 minutes Exam Narrative: AF 98.2 136/44 61 18 98% ra Gen - NARD Chest - CTA bilaterally, nml RR CV - RRR S1/S2 Abd - Soft, NT/ND Ext - No pedal edema Psych - Nml mood and affect Skin - Warm and dry DS: Data Data Completed and Pending Labs on day of discharge: Labs from last 24 hours 05/18/22 05/18/22 05/18/22 13:54 11:23 05:24 WBC RBC Hgb Hct MCV MCH MCHC RDW Plt Count MPV Immature Gran % (Auto) Neut % (Auto) Lymph % (Auto) [place] % (Auto) Eos % (Auto) Baso % (Auto) Lymph # (Auto) [place] # (Auto) Eos # (Auto) Baso # (Auto) Abs Immat Gran (auto) Absolute Neuts (auto) Absolute Nucleated RBC Nucleated RBC % Sodium Potassium 4.6 Chloride Carbon Dioxide Anion Gap BUN Creatinine Estim Creat Clear Calc Estimated GFR Glucose Calcium Magnesium Total Bilirubin AST ALT Alkaline Phosphatase Total Creatine Kinase Troponin I Total Protein Albumin TSH (Reflex) 2.050 Ur Random Sodium 132 Urine Creatinine 62.8 SARS-CoV-2 RNA (RT-PCR) 05/18/22 05/18/22 05/18/22 05:24 05:24 05:21 WBC 9.0 RBC 3.71 L Hgb 11.3 L Hct 34.9 L MCV 94.1 MCH 30.5 MCHC 32.4 RDW 15.4 H Plt Count 197
== END 2022-05-18 16:40 | disposition home or self-care (01) ==
LOC: ANHED 16:48 → ANHIMU 19:23
PROVIDERS: Internal Medicine Nephrology; Nurse Practitioner; Admitting Provider Internal Medicine; Emergency Provider Emergency Medicine; PCP Family Medicine; Visit Provider Internal Medicine
DX: R07.9 Chest pain, unspecified (principal); I48.91 Unspecified atrial fibrillation; N17.9 Acute kidney failure, unspecified; R79.89 Other specified abnormal findings of blood chemistry; E87.2 Acidosis; R06.02 Shortness of breath; R00.1 Bradycardia, unspecified; E87.5 Hyperkalemia; I13.0 Hypertensive heart and chronic kidney disease with heart failure and stage 1 through stage 4 chronic kidney disease, or unspecified chronic kidney disease; I50.33 Acute on chronic diastolic (congestive) heart failure; N18.4 Chronic kidney disease, stage 4 (severe); I48.0 Paroxysmal atrial fibrillation; I44.7 Left bundle-branch block, unspecified; M81.0 Age-related osteoporosis without current pathological fracture; Z79.01 Long term (current) use of anticoagulants; Z86.711 Personal history of pulmonary embolism; Z90.2 Acquired absence of lung [part of]; Z87.891 Personal history of nicotine dependence; Z79.51 Long term (current) use of inhaled steroids; Z20.822 Contact with and (suspected) exposure to COVID-19
CPT/HCPCS: 36415; 71046; 76775; 80048; 80053; 81003; 82550; 82570; 83735; 83880; 84132; 84300; 84443; 84484; 85025; 85610; 85730; 93005; 94640; 96374; 96375; 96376; 99285; A9270; C9803; G0378; J0360; J0610; J1815; U0003; U0005

== ENCOUNTER 2022-05-22 08:42 | Outpatient (CLI) | payer MEDICARE, SELFPAY ==
[2022-05-22 09:03] LABS: Alanine Aminotransferase 57 U/L (6-35); Alkaline Phosphatase 87 U/L (38-126); Anion Gap 7 mmol/L (8-16); Aspartate Amino Transferase 56 U/L (14-36); Bilirubin,Total 0.6 mg/dL (0.2-1.3); Blood Urea Nitrogen 47 mg/dL (7-17); Calcium 8.7 mg/dL (8.4-10.2); Carbon Dioxide 25 mmol/L (22-30); Chloride 106 mmol/L (98-107); Estimated Glomerular Filt Rate 15; Glucose 110 mg/dL (65-110); Potassium 4.6 mmol/L (3.4-5.0); Sodium 138 mmol/L (137-145)
== END 2022-05-22 08:43 | disposition home or self-care (01) ==
LOC: ANHLAB 08:44
PROVIDERS: PCP Family Medicine; Visit Provider Internal Medicine
DX: I48.91 Unspecified atrial fibrillation (principal)
CPT/HCPCS: 36415; 80053

== ENCOUNTER 2022-06-15 11:00 | Outpatient (CLI) | payer MEDICARE, SELFPAY ==
--- NOTE | ~2022-06-15 | US_ITS ---
EXAMINATION: US renal BI DATE: 06/15/2022 11:53 INDICATION: Stage IV chronic kidney disease TECHNIQUE: Multiple ultrasound grayscale images of the kidneys were obtained. COMPARISON: 05/18/2022 FINDINGS: The right kidney measures 8.4 x 3.9 x 3.3 cm. The left kidney measures 8.3 x 3.6 x 3.6 cm. And the la teral mildly increased renal cortical collection is detected consistent with medical renal disease. T here is no hydronephrosis in either kidney. No stones identified. The bladder is normal. IMPRESSION: 1. Bilateral mild likely age-related renal atrophy with increased echogenicity consistent with medica l renal disease. No hydronephrosis. Reviewed, dictated and finalized at location A. IMPRESSION: 1. Bilateral mild likely age-related renal atrophy with increased echogenicity consistent with medical renal disease. No hydronephrosis.
== END 2022-06-15 11:01 | disposition home or self-care (01) ==
PROVIDERS: PCP Family Medicine; Visit Provider Internal Medicine Nephrology
DX: N18.4 Chronic kidney disease, stage 4 (severe) (principal)
CPT/HCPCS: 76775

== ENCOUNTER 2023-08-03 11:49 | Emergency (ER) | payer MEDICARE, SELFPAY ==
[2023-08-03] VITALS (11 sets, daily range): BP systolic 152–205; BP diastolic 69–104; PULSE 70–128; RESP 14–31; TEMP 37; O2SAT 90–96
--- NOTE | ~2023-08-03 | XR_ITS ---
EXAMINATION: XR chest 2V DATE: 08/03/2023 14:28 INDICATION: Shortness of breath TECHNIQUE: frontal and lateral views of the chest were obtained. COMPARISON: Chest radiograph dated 05/17/2022 FINDINGS: Chronic right apical pleural-parenchymal scarring. Mild reticular opacities in bilateral lower lung z ones. Small right pleural effusion with blunting at the costophrenic angle and posterior sulcus. Card iomegaly. Chronic compression fractures in the lower thoracic spine. Right fifth rib thoracotomy defe ct. IMPRESSION: 1. Mild reticular opacities at bilateral lower lung zones most likely atelectasis/scarring with diffe rential including mild pulmonary edema or less likely pneumonia. 2. Small right pleural effusion. 3. Cardiomegaly. Reviewed, dictated and finalized at location A. IMPRESSION: 1. Mild reticular opacities at bilateral lower lung zones most likely atelectas is/scarring with differential including mild pulmonary edema or less likely pne umonia. 2. Small right pleural effusion. 3. Cardiomegaly.
--- NOTE | ~2023-08-03 | CT_ITS ---
EXAMINATION: CT brain wo con DATE: 08/03/2023 14:26 INDICATION: Headache TECHNIQUE: Computed tomography (CT) of the head was performed without intravenous contrast. Sagittal and coronal reconstructions were performed. The mA was adjusted according to patient size. Iterative reconstruction technique was employed. The dose-length product was 605.33 mGy-cm. COMPARISON: None FINDINGS: No acute intracranial hemorrhage, acute infarction or abnormal extra axial fluid collection. There is mild to moderate scattered white matter hypoattenuation consistent with chronic small vessel ischemi c disease. Symmetric prominence of the sulci consistent with mild age-appropriate diffuse cerebral vo lume loss. Ventricles are normal and symmetric. No mass/mass effect. Changes of bilateral intraocular lens replacement. The orbits, paranasal sinuses and mastoid air cells are normal. IMPRESSION: 1. No acute intracranial process. 2. Age-related changes including mild diffuse volume loss and mild to moderate scattered white matter hypoattenuation consistent with chronic small vessel ischemic disease. Reviewed, dictated and finalized at location A. IMPRESSION: 1. No acute intracranial process. 2. Age-related changes including mild diffuse volume loss and mild to moderate scattered white matter hypoattenuation consistent with chronic small vessel isc hemic disease.
--- NOTE | 2023-08-03 13:51 | ECG_ITS ---
Measurements Intervals [place] Rate: 76 P: 78 TN: 158 QRS: -32 QRSD: 136 T: 101 QT: 387 QTc: 436 Interpretive Statements SINUS RHYTHM LEFT AXIS DEVIATION LEFT BUNDLE BRANCH BLOCK BASELINE ARTIFACT- I, II, III, AVR, V6 ABNORMAL ECG COMPARED TO ECG 05/17/2022 19:44:40 SINUS RHYTHM NOW PRESENT LEFT-AXIS DEVIATION NOW PRESENT Electronically Signed On 08-03-2023 14:40:44 CDT by Jagjit Pan D.O.
--- NOTE | 2023-08-03 14:01 | ED.SOB ---
HPI - SOB/Dyspnea General Chief Complaint: Shortness of Breath/Dyspnea Stated Complaint: headache/ sob Time Seen by Provider: 08/03/23 13:49 History of Present Illness HPI Narrative: Patient is an 87 year old female with history of HN, CKD, Afib, CHF here with shortness of breath and headache. patient notes that approximately 6 days ago she was watching TV and started having a diffuse mild headache. She describes it as feeling like her head is empty, no associated vision changes, numbness or weakness in arms or legs, facial asymmetry. She states that she has a distant history of migraines and those tended to be much worse. She has been taking Tylenol which does not help with her pain. Around the same amount of time she additionally started noticing some increased urinary frequency. She notes that she has been urinating nonstop, denies any dysuria or hematuria. She additionally notes shortness of breath over the last few days. This is intermittent in nature not currently present. No chest pain, no cough, congestion, fever, chills. She denies any head trauma. She does note that she is on blood thinners for her AFib, Xarelto. Related Data Home Medications Medication Instructions Recorded Confirmed ncoslgygwnwa-wdovhmmf-lkmruz tablet 1 tablet PO DAILY 01/02/22 08/03/23 Allergies Allergy/AdvReac Type Severity Reaction Status Date / Time calcitonin Allergy Intermediate eye itch Verified 08/03/23 12:00 and swelling mirabegron [From Myrbetriq] Allergy Intermediate swelling Verified 08/03/23 12:00 alendronate sodium Allergy Mild unknown Verified 08/03/23 12:00 Penicillins Allergy Mild hives Verified 08/03/23 12:00 risedronate sodium Allergy Mild unknown Verified 08/03/23 12:00 ciprofloxacin Allergy Unknown joint aches Verified 08/03/23 12:00 Review of Systems Review of Systems: CONSTITUTIONAL: Denies fever, chills, or sweats. EYES: Denies visual changes, redness, or discharge. ENT: Denies rhinorrhea, congestion, sore throat, or otalgia. CARDIOVASCULAR: Denies chest pain, palpitations, or edema. RESPIRATORY: dyspnea, no cough GASTROINTESTINAL: Denies abdominal pain, nausea, vomiting, or diarrhea. GENITOURINARY: Denies dysuria or hematuria. SKIN: Denies rash or itching. MUSCULOSKELETAL: Denies back pain, joint pain, or myalgia. NEUROLOGIC: headache, no numbness, or weakness. PSYCHIATRIC: Denies anxiety or depression. [facility] Past Medical History Medical History Acute kidney injury Benign essential HTN Chronic kidney disease, stage 4 (severe) HX: anticoagulation Osteoporosis Paroxysmal atrial fibrillation Pulmonary embolism Surgical History Surgical History History of appendectomy History of lobectomy of lung Hx of cataract surgery S/P cholecystectomy Family History Family History Mother Cerebrovascular accident, Onset Age: 83 Patient's mother is Father Family history of coronary artery disease, Onset Age: 79 Patient's father is Social History Social History Social History: The patient lives home alone and she has 1 child. 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 She is . She quit smoking many years ago. She does not use any alcohol marijuana or illicit drugs. Code status full code Smoking packs per day: 1 Smoking cigarettes per day: 20.0 Years smoked: 30 Smoking pack-years: 30.00 Smoking status: Former smoker Tobacco type: cigarettes Second hand tobacco smoke exposure: No Additional smoking assessment comments: 40 to 50 years ago Alcohol intake: never Substance use: never Substance use type: does not use Lack of Transportation: No Lack of Food: Never True Current Housing: I Have [facility]
[2023-08-03 14:17] LABS: Basophils Percent Auto 0.4 % (0.2-1.2); Eosinophils Absolute Auto 0.1 K/mm3 (0-0.3); Eosinophils Percent Auto 1.5 % (0-4.4); Hemoglobin 11.8 g/dL (12.0-15.0); Immature Granulocyte Absolute 0.03 K/mm3 (0.00-0.031); Immature Granulocyte Percent A 0.4 % (0-0.5); Lymphocytes Absolute Auto 2.49 K/mm3 (0.9-3.2); Lymphocytes Percent Auto 31.8 % (18.3-44.2); Mean Corpuscular HGB Conc 31.1 g/dl (32-36); Mean Corpuscular Hemoglobin 30.2 pg (26-34); Mean Corpuscular Volume 97.2 fl (80-100); Mean Platelet Volume 10.8 fl (7.4-10.4); Monocytes Absolute Auto 0.5 K/mm3 (0.1-0.6); Monocytes Percent Auto 6.4 % (2.6-8.5); Neutrophils Absolute Auto 4.7 K/mm3 (1.3-6.7); Neutrophils Percent Auto 59.5 % (45.5-73.1); Platelet Count Result 170 k/mm3 (150-375); Red Blood Count 3.91 M/mm3 (4.2-5.4); White Blood Count 7.8 K/mm3 (4.5-10.0)
[2023-08-03 14:22] LABS: Alanine Aminotransferase 22 U/L (6-35); Alkaline Phosphatase 78 U/L (38-126); Anion Gap 6 mmol/L (8-16); Aspartate Amino Transferase 35 U/L (14-36); Bilirubin,Total 0.7 mg/dL (0.2-1.3); Blood Urea Nitrogen 25 mg/dL (7-17); Calcium 8.7 mg/dL (8.4-10.2); Carbon Dioxide 28 mmol/L (22-30); Chloride 106 mmol/L (98-107); Estimated CRCL calculation 20 ml/min; Estimated Glomerular Filt Rate 30; Glucose 91 mg/dL (65-110); Potassium 4.5 mmol/L (3.4-5.0); Sodium 140 mmol/L (137-145)
[2023-08-03 14:43] LABS: Appearance Urine Clear (Clear); Bacteria Urine None Seen /hpf; Bilirubin Urine Negative (Negative); Blood Urine Negative (Negative); Color Urine Yellow (Yellow); Glucose Urine UA Negative (Negative); Ketones Urine Negative (Negative); Leukocyte Esterase Ur Negative LEU/UL (Negative); Nitrate Urine Negative (Negative); Non Pathogenic Casts 0-2; Protein Urine 1+ mg/dL (Negative); RBC Urine 0-2 /hpf (0-2); Specific Grav Ur 1.007 (1.001-1.035); Squamous Epithelial Cell Urine None seen /hpf (Few); Urobilinogen Urine 0.2 mg/dL (<2.0); WBC Urine 0-5 /hpf; pH Urine 7.5 (5.0-9.0)
[2023-08-03 14:58] LABS: Add Urine Microscopic? YES
[2023-08-03 14:58] LABS: Troponin I 0.014 ng/mL (0.000-0.034)
[2023-08-03] MEDS: MORPHINE SULFATE (*CRX) 2 MG/ML INJ IV PUSH (14:59)
[2023-08-03] MEDS: ONDANSETRON INJ 4 MG/2 ML VIAL IV PUSH (14:59)
[2023-08-03 16:09] LABS: NT Pro B Type Natriuretic Pept 5790 pg/mL (19.9-100)
[2023-08-03 17:45] LABS: Troponin I 0.014 ng/mL (0.000-0.034)
== END 2023-08-03 18:08 | disposition home or self-care (01) ==
PROVIDERS: Emergency Provider Student in an Organized Health Care Education/Training Program; PCP Family Medicine
DX: R79.89 Other specified abnormal findings of blood chemistry (principal); R51.9 Headache, unspecified; I13.0 Hypertensive heart and chronic kidney disease with heart failure and stage 1 through stage 4 chronic kidney disease, or unspecified chronic kidney disease; I50.9 Heart failure, unspecified; N18.4 Chronic kidney disease, stage 4 (severe); I48.0 Paroxysmal atrial fibrillation; M81.0 Age-related osteoporosis without current pathological fracture; Z86.711 Personal history of pulmonary embolism; Z87.891 Personal history of nicotine dependence; Z90.2 Acquired absence of lung [part of]; Z98.49 Cataract extraction status, unspecified eye; Z90.49 Acquired absence of other specified parts of digestive tract; I51.7 Cardiomegaly; R91.8 Other nonspecific abnormal finding of lung field; I44.7 Left bundle-branch block, unspecified
CPT/HCPCS: 36415; 70450; 71046; 80053; 81001; 83880; 84484; 85025; 93005; 96374; 96375; 99284; J2270; J2405

== ENCOUNTER 2023-08-05 19:19 | Emergency (ER) | payer MEDICARE, SELFPAY ==
[2023-08-05] VITALS (7 sets, daily range): BP systolic 185–205; BP diastolic 73–87; PULSE 76–84; RESP 14–22; TEMP 36.6; O2SAT 93–95
--- NOTE | 2023-08-05 19:46 | ED.RECABL ---
HPI - Recheck/Abnormal Lab/Rx General Chief Complaint: Recheck/Abnormal Lab/Rx Stated Complaint: HTN, headache Time Seen by Provider: 08/05/23 19:36 History of Present Illness HPI narrative: 87F h/o HTN p/w OWENS that has lingered for past week; had been seen here 2d ago for same. Notes her BP has been elevated too. No focal numbness or weakness. Currently only takes metoprolol for blood pressure Related Data Home Medications Medication Instructions Recorded Confirmed tikuenudmbqd-fhgjuquu-livyks tablet 1 tablet PO DAILY 01/02/22 08/03/23 Allergies Allergy/AdvReac Type Severity Reaction Status Date / Time calcitonin Allergy Intermediate eye itch Verified 08/03/23 12:00 and swelling mirabegron [From Myrbetriq] Allergy Intermediate swelling Verified 08/03/23 12:00 alendronate sodium Allergy Mild unknown Verified 08/03/23 12:00 Penicillins Allergy Mild hives Verified 08/03/23 12:00 risedronate sodium Allergy Mild unknown Verified 08/03/23 12:00 ciprofloxacin Allergy Unknown joint aches Verified 08/03/23 12:00 Review of Systems Review of Systems: CONST: No fever. HEENT: No sore throat C/V: No chest pain RESP: No cough GI: No nausea/vomiting : No dysuria. M/S: No joint pain. SKIN: No rash. NEURO: Headache without focal numbness/weakness PSYCH: [No depression] [facility] Past Medical History Medical History Acute kidney injury Benign essential HTN Chronic kidney disease, stage 4 (severe) HX: anticoagulation Osteoporosis Paroxysmal atrial fibrillation Pulmonary embolism Surgical History Surgical History History of appendectomy History of lobectomy of lung Hx of cataract surgery S/P cholecystectomy Family History Family History Mother Cerebrovascular accident, Onset Age: 83 Patient's mother is Father Family history of coronary artery disease, Onset Age: 79 Patient's father is Social History Social History Social History: The patient lives home alone and she has 1 child. 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 She is . She quit smoking many years ago. She does not use any alcohol marijuana or illicit drugs. Code status full code Smoking packs per day: 1 Smoking cigarettes per day: 20.0 Years smoked: 30 Smoking pack-years: 30.00 Smoking status: Former smoker Tobacco type: cigarettes Second hand tobacco smoke exposure: No Additional smoking assessment comments: 40 to 50 years ago Alcohol intake: never Substance use: never Substance use type: does not use Lack of Transportation: No Lack of Food: Never True Current Housing: I Have Housing Concerned About Future Housing: No Difficulty Paying Gas/Electric Bills: No Difficulty Paying for Meds: No Currently Unemployed: No Education: High School Diploma/GED Difficulty w/ Childcare or Family Care: No Living arrangements: alone Occupation/Education: retired Gender identity (if verbalized by the patient): Female Sexual Orientation (if Verbalized by the Patient): Straight or Heterosexual Spiritual care concerns: No Exam Narrative: EXAMINATION OF ORGAN SYSTEMS/BODY AREAS: Constitutional: Vital signs per nursing GENERAL:[No acute distress, non-toxic appearing.] HEAD: Normal with no signs of head trauma. EYES: EOMI, conjunctiva normal ENT: Hearing grossly intact LUNGS: Nonlabored breathing. HEART: [Regular rate and rhythm] ABD: Nondistended EXT: Normal range of motion SKIN: [No rashes or lesions.] NEURO: [Alert and oriented x 3. No facial asymmetry or dysarthria. No focal numbness/weakness; ambulating with normal steady gait.] PSYCH: Normal affect Course Vital Signs Vital signs: Vital Sign
[2023-08-05] MEDS: METOCLOPRAMIDE HCL INJ 10 MG/2 ML VIAL IM (20:13)
[2023-08-05 20:17] LABS: Basophils Percent Auto 0.4 % (0.2-1.2); Eosinophils Absolute Auto 0.2 K/mm3 (0-0.3); Eosinophils Percent Auto 2.9 % (0-4.4); Hemoglobin 11.4 g/dL (12.0-15.0); Immature Granulocyte Absolute 0.02 K/mm3 (0.00-0.031); Immature Granulocyte Percent A 0.3 % (0-0.5); Lymphocytes Absolute Auto 2.77 K/mm3 (0.9-3.2); Lymphocytes Percent Auto 35.2 % (18.3-44.2); Mean Corpuscular HGB Conc 30.8 g/dl (32-36); Mean Corpuscular Hemoglobin 30.5 pg (26-34); Mean Corpuscular Volume 98.9 fl (80-100); Monocytes Absolute Auto 0.7 K/mm3 (0.1-0.6); Monocytes Percent Auto 8.5 % (2.6-8.5); Neutrophils Absolute Auto 4.1 K/mm3 (1.3-6.7); Neutrophils Percent Auto 52.7 % (45.5-73.1); Platelet Count Result 190 k/mm3 (150-375); Red Blood Count 3.74 M/mm3 (4.2-5.4); Red Cell Distribution Width 13.2 % (11.5-14.5); White Blood Count 7.9 K/mm3 (4.5-10.0)
[2023-08-05 20:23] LABS: Anion Gap 9 mmol/L (8-16); Blood Urea Nitrogen 30 mg/dL (7-17); Calcium 8.6 mg/dL (8.4-10.2); Carbon Dioxide 26 mmol/L (22-30); Chloride 108 mmol/L (98-107); Estimated CRCL calculation 18 ml/min; Estimated Glomerular Filt Rate 25; Glucose 106 mg/dL (65-110); Potassium 4.4 mmol/L (3.4-5.0); Sodium 143 mmol/L (137-145)
[2023-08-05] MEDS: diphenhydrAMINE HCl INJ 50 MG/ML VIAL 25 MG IV PUSH (21:18)
[2023-08-05] MEDS: HALOPERIDOL LACTATE 5 MG/ML VIAL 2.5 MG IV PUSH (21:19)
[2023-08-05] MEDS: hydrALAZINE HCL 20 MG/ML VIAL 5 MG IV PUSH (21:20)
== END 2023-08-05 23:15 | disposition home or self-care (01) ==
PROVIDERS: Emergency Provider Emergency Medicine; PCP Family Medicine
DX: R51.9 Headache, unspecified (principal); I12.9 Hypertensive chronic kidney disease with stage 1 through stage 4 chronic kidney disease, or unspecified chronic kidney disease; N18.4 Chronic kidney disease, stage 4 (severe); I48.0 Paroxysmal atrial fibrillation; M81.0 Age-related osteoporosis without current pathological fracture; Z86.711 Personal history of pulmonary embolism; Z87.891 Personal history of nicotine dependence; Z98.49 Cataract extraction status, unspecified eye; Z90.2 Acquired absence of lung [part of]; Z90.49 Acquired absence of other specified parts of digestive tract; Z79.01 Long term (current) use of anticoagulants
CPT/HCPCS: 36415; 80048; 85025; 96372; 96374; 96375; 99284; J0360; J1200; J1630; J2765

== ENCOUNTER 2023-10-16 07:21 | Emergency (ER) | payer MEDICARE, SELFPAY ==
[2023-10-16] VITALS (19 sets, daily range): BP systolic 160–217; BP diastolic 55–99; PULSE 74–98; RESP 12–28; TEMP 36.4; O2SAT 87–98
--- NOTE | ~2023-10-16 | CT_ITS ---
Non-contrast Head CT History: Headache COMPARISON: 08/03/2023 Technique: Axial non-contrast imaging of the brain was performed. Dose reduction technique was used on this scan by utilizing automated exposure control and iterative reconstruction technique. The dose -length product (DLP) was 605.33 mGy-cm. Findings: There is no evidence of intracranial hemorrhage, mass lesion, or acute infarct. Brain par enchyma appears normal. The ventricles and subarachnoid spaces are normal in size. The calvarium ap pears normal. The visualized paranasal sinuses and mastoid air cells are clear. Impression: No significant abnormality seen. Reviewed, dictated and finalized at location . PROCESS OPERATOR Impression: No significant abnormality seen.
--- NOTE | 2023-10-16 07:32 | ECG_ITS ---
Measurements Intervals [place] Rate: 85 P: 93 CA: 181 QRS: -39 QRSD: 136 T: 105 QT: 382 QTc: 455 Interpretive Statements SINUS RHYTHM WITH OCCASIONAL VENTRICULAR PREMATURE COMPLEXES LEFT AXIS DEVIATION [QRS AXIS < -30] LEFT BUNDLE BRANCH BLOCK [120+ ms QRS DURATION, 80+ ms Q/S IN V1/V2, 85+ ms R IN I/aVL/V5/V6] COMPARED TO ECG 08/03/2023 11:59:30 NO SIGNIFICANT CHANGES Electronically Signed On 10-16-2023 13:29:57 WELDING MACHINE OPERATOR THERMIT by Tamara Vinson M.D.
[2023-10-16 08:03] LABS: Basophils Absolute Auto 0.1 K/mm3 (0.0-0.1); Basophils Percent Auto 0.5 % (0.2-1.2); Eosinophils Absolute Auto 0.1 K/mm3 (0-0.3); Hematocrit 41.8 % (37.0-47.0); Hemoglobin 12.9 g/dL (12.0-15.0); Immature Granulocyte Absolute 0.04 K/mm3 (0.00-0.031); Immature Granulocyte Percent A 0.4 % (0-0.5); Lymphocytes Absolute Auto 3.95 K/mm3 (0.9-3.2); Lymphocytes Percent Auto 42.7 % (18.3-44.2); Mean Corpuscular HGB Conc 30.9 g/dl (32-36); Mean Corpuscular Hemoglobin 29.5 pg (26-34); Mean Corpuscular Volume 95.4 fl (80-100); Mean Platelet Volume 10.7 fl (7.4-10.4); Monocytes Absolute Auto 0.5 K/mm3 (0.1-0.6); Monocytes Percent Auto 5.5 % (2.6-8.5); Neutrophils Absolute Auto 4.6 K/mm3 (1.3-6.7); Neutrophils Percent Auto 49.9 % (45.5-73.1); Platelet Count Result 202 k/mm3 (150-375); Red Blood Count 4.38 M/mm3 (4.2-5.4); Red Cell Distribution Width 13.3 % (11.5-14.5); White Blood Count 9.3 K/mm3 (4.5-10.0)
--- NOTE | 2023-10-16 08:13 | ED.GENADULT ---
HPI - General Adult General Chief complaint: Headache Stated complaint: chaparro Time Seen by Provider: 10/16/23 07:29 History of Present Illness HPI narrative: 88-year-old female presenting to the emergency department for evaluation of headache over the last few days. Patient reports he does have a remote history of migraines when she was in her 20s but after having a sensation section patient states that she no longer has frequent headaches. Patient reports that her blood pressures have been more elevated over the last few months. Patient has been seen in the emergency department for this and patient has had follow-up with her primary care physician for this as well. Patient denies any recent coughs colds or fevers. Related Data Home Medications Medication Instructions Recorded Confirmed hucrpasptbag-qffuwgtt-rushhg tablet 1 tablet PO DAILY 01/02/22 08/28/23 Allergies Allergy/AdvReac Type Severity Reaction Status Date / Time calcitonin Allergy Intermediate eye itch Verified 10/16/23 07:33 and swelling mirabegron [From Myrbetriq] Allergy Intermediate swelling Verified 10/16/23 07:33 alendronate sodium Allergy Mild unknown Verified 10/16/23 07:33 Penicillins Allergy Mild hives Verified 10/16/23 07:33 risedronate sodium Allergy Mild unknown Verified 10/16/23 07:33 ciprofloxacin Allergy Unknown joint aches Verified 10/16/23 07:33 Review of Systems Review of Systems: All systems reviewed & are unremarkable except as noted in HPI and below PMFSH Past Medical History Medical History Acute kidney injury Benign essential HTN Chronic kidney disease, stage 4 (severe) HX: anticoagulation Osteoporosis Paroxysmal atrial fibrillation Pulmonary embolism Surgical History Surgical History History of appendectomy History of lobectomy of lung Hx of cataract surgery S/P cholecystectomy Family History Family History Mother Cerebrovascular accident, Onset Age: 83 Patient's mother is Father Family history of coronary artery disease, Onset Age: 79 Patient's father is Social History Social History Social History: The patient lives home alone and she has 1 child. 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 She is . She quit smoking many years ago. She does not use any alcohol marijuana or illicit drugs. Code status full code Smoking packs per day: 1 Smoking cigarettes per day: 20.0 Years smoked: 30 Smoking pack-years: 30.00 Smoking status: Former smoker Tobacco type: cigarettes Second hand tobacco smoke exposure: No Additional smoking assessment comments: 40 to 50 years ago Alcohol intake: never Substance use: never Substance use type: does not use Lack of Transportation: No Lack of Food: Never True Current Housing: I Have Housing Concerned About Future Housing: No Difficulty Paying Gas/Electric Bills: No Difficulty Paying for Meds: No Currently Unemployed: No Education: High School Diploma/GED Difficulty w/ Childcare or Family Care: No Living arrangements: alone Occupation/Education: retired Gender identity (if verbalized by the patient): Female Sexual Orientation (if Verbalized by the Patient): Straight or Heterosexual Spiritual care concerns: No Exam Narrative: APPEARANCE: Uncomfortable appearing HEAD: normocephalic, atraumatic. EYES: PERRLA/EOMI, conjunctivae clear. NOSE: Normal no drainage EARS:TMS clear with good light reflex. THROAT: Pharynx clear, no exudate. NECK: Supple. No adenopathy, no masses. RESPIRATORY: Airway patent, respirations nonlabored. Clear to auscultation bilaterally, no rales, rhonchi, wheezing. CARDIOVASCULAR: Regular rate and rhythm without murmurs
[2023-10-16 08:14] LABS: INR 1.2; Prothrombin Time 15.7 Seconds (11.1-14.7)
[2023-10-16] MEDS: fentaNYL CITRATE INJ (*CRX) 100 MCG/2 ML VIAL 50 MCG IV PUSH (08:35)
[2023-10-16 08:44] LABS: Alanine Aminotransferase 22 U/L (6-35); Alkaline Phosphatase 86 U/L (38-126); Anion Gap 12 mmol/L (8-16); Aspartate Amino Transferase 33 U/L (14-36); Bilirubin,Total 0.8 mg/dL (0.2-1.3); Blood Urea Nitrogen 26 mg/dL (7-17); Calcium 8.9 mg/dL (8.4-10.2); Carbon Dioxide 22 mmol/L (22-30); Chloride 107 mmol/L (98-107); Estimated CRCL calculation 20 ml/min; Estimated Glomerular Filt Rate 28; Glucose 119 mg/dL (65-110); Potassium 4.4 mmol/L (3.4-5.0); Sodium 141 mmol/L (137-145)
[2023-10-16] MEDS: ONDANSETRON INJ 4 MG/2 ML VIAL IV PUSH (08:45)
[2023-10-16] MEDS: hydrALAZINE HCL 20 MG/ML VIAL 10 MG IV PUSH (09:00)
[2023-10-16] MEDS: METOPROLOL TARTRATE INJ 5 MG/5 ML VIAL IV PUSH (09:54)
[2023-10-16] MEDS: cloNIDine HCL 0.1 MG TABLET PO (11:03)
== END 2023-10-16 11:53 | disposition home or self-care (01) ==
PROVIDERS: Emergency Provider Emergency Medicine; PCP Family Medicine
DX: R51.9 Headache, unspecified (principal); I12.9 Hypertensive chronic kidney disease with stage 1 through stage 4 chronic kidney disease, or unspecified chronic kidney disease; N18.4 Chronic kidney disease, stage 4 (severe); I48.91 Unspecified atrial fibrillation; Z86.711 Personal history of pulmonary embolism
CPT/HCPCS: 36415; 70450; 80053; 85025; 85610; 85730; 93005; 96374; 96375; 99284; A9270; J0360; J2405; J3010

== ENCOUNTER 2024-05-17 06:22 | Inpatient (IN) | payer MEDICARE, SELFPAY ==
[2024-05-17] VITALS (12 sets, daily range): BP systolic 92–124; BP diastolic 40–76; PULSE 62–78; RESP 14–20; TEMP 36.1–36.5; O2SAT 95–100
--- NOTE | ~2024-05-17 | CT_ITS ---
EXAMINATION: CT abdomen pelvis wo con DATE: 05/17/2024 18:13 INDICATION: diarrhea TECHNIQUE: Computed tomography (CT) of the abdomen and pelvis was performed without intravenous contr ast. Automated exposure control and iterative reconstruction technique were employed. The dose-length product was 217.83 mGy-cm. COMPARISON: X-ray chest 08/01/2023; renal ultrasound 06/15/2022; CT abdomen 09/28/2008; CT pelvis 005. FINDINGS: Lower thorax: Small focus of lingular atelectasis. Bibasilar scar. Aortic valve, mitral, and coronary artery consolidation. Mild cardiomegaly. Liver: Normal. Biliary/Gallbladder: Gallbladder is absent. No bile duct dilation. Pancreas: No mass or duct dilation. Spleen: Normal. Adrenals:No mass. Kidneys: No suspicious mass, obstructing stone, or hydronephrosis. Mild bilateral renal atrophy. GI tract: No small or large bowel dilation. Normal appendix. Diverticulosis without diverticulitis. Mesentery/Peritoneum: No ascites, mass, or free air. Retroperitoneum: No mass. Atherosclerotic abdominal aortic and/or arterial calcifications. Pelvis: The urinary bladder is mostly decompressed. Absent uterus. Ovaries not confidently identified . Soft Tissues: Soft tissues and body wall unremarkable. Bones: No acute osseous finding. Grade 1 anterolisthesis at L4-5. Stable moderate wedge compression deformity at T11. IMPRESSION: No acute abdominopelvic process detected. Reviewed, dictated and finalized at [facility].
[2024-05-17 06:59] LABS: Basophils Absolute Auto 0.1 K/mm3 (0.0-0.1); Basophils Percent Auto 0.6 % (0.2-1.2); Eosinophils Absolute Auto 0.1 K/mm3 (0-0.3); Eosinophils Percent Auto 1.2 % (0-4.4); Hematocrit 41.5 % (37.0-47.0); Hemoglobin 13.3 g/dL (12.0-15.0); Immature Granulocyte Absolute 0.03 K/mm3 (0.00-0.031); Immature Granulocyte Percent A 0.3 % (0-0.5); Lymphocytes Absolute Auto 5.01 K/mm3 (0.9-3.2); Mean Corpuscular Hemoglobin 30.8 pg (26-34); Mean Corpuscular Volume 96.1 fl (80-100); Mean Platelet Volume 11.1 fl (7.4-10.4); Monocytes Absolute Auto 0.6 K/mm3 (0.1-0.6); Neutrophils Absolute Auto 4.2 K/mm3 (1.3-6.7); Neutrophils Percent Auto 41.9 % (45.5-73.1); Platelet Count Result 176 k/mm3 (150-375); Red Blood Count 4.32 M/mm3 (4.2-5.4); Red Cell Distribution Width 13.5 % (11.5-14.5)
[2024-05-17 07:09] LABS: Alanine Aminotransferase 19 U/L (6-35); Albumin Level 4.4 g/dL (3.5-5.1); Alkaline Phosphatase 71 U/L (38-126); Anion Gap 15 mmol/L (4-12); Aspartate Amino Transferase 29 U/L (14-36); Bilirubin,Total 0.7 mg/dL (0.2-1.3); Blood Urea Nitrogen 85 mg/dL (7-17); Calcium 9.3 mg/dL (8.4-10.2); Carbon Dioxide 13 mmol/L (22-30); Chloride 116 mmol/L (98-107); Estimated CRCL calculation 11 ml/min; Estimated Glomerular Filt Rate 15; Glucose 93 mg/dL (65-110); Lipase 309 U/L (23-300); Potassium 4.9 mmol/L (3.4-5.0); Sodium 144 mmol/L (137-145)
--- NOTE | 2024-05-17 07:58 | ED.NAVMDI ---
HPI - Nausea/Vomiting/Diarrhea General Chief complaint: Nausea/Vomiting/Diarrhea Stated complaint: Diarrhea xweeks, weakness Time Seen by Provider: 05/17/24 06:56 History of Present Illness HPI Narrative: Patient is an 88-year-old female who presents ER with diarrhea for 3 weeks. Reports she has diarrhea every 10 minutes. It is watery. There has been no antibiotic usage. Denies fevers or chills or sweats. She is beginning to feel weak with exertion. No dizziness or syncope. No vomiting. She is without abdominal pain. No aggravating or alleviating factors. Related Data Home Medications Medication Instructions Recorded Confirmed apixaban 2.5 mg tablet (Eliquis) 2.5 mg PO BID 05/17/24 05/17/24 chlorthalidone 25 mg tablet 25 mg PO DAILY 05/17/24 05/17/24 metoprolol succinate 100 mg 100 mg PO DAILY 05/17/24 05/17/24 tablet,extended release 24 hr Allergies Allergy/AdvReac Type Severity Reaction Status Date / Time calcitonin Allergy Intermediate eye itch Verified 05/17/24 06:29 and swelling mirabegron [From Myrbetriq] Allergy Intermediate swelling Verified 05/17/24 06:29 alendronate sodium Allergy Mild unknown Verified 05/17/24 06:29 Penicillins Allergy Mild hives Verified 05/17/24 06:29 risedronate sodium Allergy Mild unknown Verified 05/17/24 06:29 ciprofloxacin Allergy Unknown joint aches Verified 05/17/24 06:29 clonidine AdvReac Severe Hallucinati Uncoded 05/06/24 09:22 ng Review of Systems Review of Systems: All systems reviewed & are unremarkable except as noted in HPI and below Constitutional: Constitutional: Denies chills, Reports fatigue and Denies fever(s) ENT: Reports system reviewed and no additional complaints, except as documented Cardiovascular: Cardiovascular: Reports no additional cardiovascular complaints Respiratory: Respiratory: Reports no additional respiratory complaints Gastrointestinal: Gastrointestinal: Denies abdominal pain, Denies bloating, Reports diarrhea, Denies nausea and Denies vomiting Genitourinary: Genitourinary: Reports no additional female genitourinary complaints [facility] Past Medical History Medical History (Updated 05/17/24 @ 15:01 by Melvin Castillo MD) Acute kidney injury Acute on chronic renal failure Anemia in chronic renal disease Atrial fibrillation with RVR Benign essential HTN CHF (congestive heart failure) Chronic kidney disease, stage 4 (severe) HX: anticoagulation Hypokalemia Osteoporosis Paroxysmal atrial fibrillation Pneumonia Pulmonary embolism Severe sepsis Suspected COVID-19 virus infection Valvular heart disease Surgical History Surgical History History of appendectomy History of lobectomy of lung Hx of cataract surgery S/P cholecystectomy Family History Family History Mother Cerebrovascular accident, Onset Age: 83 Patient's mother is Father Family history of coronary artery disease, Onset Age: 79 Patient's father is Social History Social History Social History: The patient lives home alone and she has 1 child. 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 She is . She quit smoking many years ago. She does not use any alcohol marijuana or illicit drugs. Code status full code Smoking packs per day: 1 Smoking cigarettes per day: 20.0 Years smoked: 30 Smoking pack-years: 30.00 Smoking status: Never smoker Tobacco type: cigarettes Second hand tobacco smoke exposure: No Additional smoking assessment comments: 40 to 50 years ago Alcohol intake: never Substance use: never Substance use type: does not use Do You Feel Safe in your Home?: Yes Lack of Transportation: No Lack of Food: Never True Current Housing: I Have Housing Concerned About Future Housing: No Difficult
[2024-05-17] MEDS: SODIUM CHLORIDE 0.9% IV 1,000 ML 999 ML IV CONT (08:10)
[2024-05-17 09:50] LABS: Toxigenic C. Diff NEGATIVE (NEGATIVE)
[2024-05-17 10:06] LABS: Appearance Urine Clear (Clear); Bacteria Urine None Seen /hpf; Bilirubin Urine Negative (Negative); Blood Urine 1+ (Negative); Color Urine Yellow (Yellow); Glucose Urine UA Negative (Negative); Hyaline Casts Urine Present /lpf; Ketones Urine Trace mg/dL (Negative); Leukocyte Esterase Ur Trace LEU/UL (Negative); Need Manual Microscopic Reviewed; Nitrate Urine Negative (Negative); Protein Urine 1+ mg/dL (Negative); RBC Urine 0-2 /hpf (0-2); Specific Grav Ur 1.012 (1.001-1.035); Squamous Epithelial Cell Urine Occasional /hpf (Few); Urobilinogen Urine 0.2 mg/dL (<2.0); WBC Urine 0-5 /hpf (0-3)
[2024-05-17 10:08] LABS: Add Urine Microscopic? YES
--- NOTE | 2024-05-17 12:45 | ADMGEN ---
This patient, Mariya Shah, was admitted to 3 [facility] Surg Room 327-01 @ 1245. Patient/family oriented to hospital policies and general routines including ID bracelet, bed and alarms, visiting hours, pain management, procedures, bathroom and other care routines, personal items, smoking policy, room service/diet, and visiting hours. Information on how to activate the Rapid Response Team has been discussed. Patient/Family are encouraged to report perceived risks to care and to ask questions if they do not understand what they are told or what they should do.
--- NOTE | 2024-05-17 14:11 | PM.IMHP ---
H&P: HPI History of Present Illness Date/Time: 05/17/24 14:11 Chief Complaint: Diarrhea Narrative: 88 y/o F presents here with diarrhea with PMH of CKD, pAFib, HTN, osteoporosis, and pulmonary embolism. The patient present here for further evaluation of ongoing diarrhea. She reports diarrhea that has been ongoing for the past 3 months. Over the course of the last 3 the diarrhea has increased in frequency. Stool described as light brooks. No bile or blood in stool. Associated with generalized weakness, lack of appetite, and bowel incontinence. Had an appointment with GI on 05/30, however given progression of symptoms she elected to be seen today. Denies any recent antibiotic courses. Denies previous stool cultures. Occasional abdominal pain. She describes it as lower abdomen/pelvis, cramping, no alleviating or aggravating factors, and mild. Has taken Imodium and probiotics with only temporary relief. Has had mild unintentional weight loss in the last month - 5 lbs. Denies associated fever, chills, body aches. No previous issues with diarrhea or constipation. Has had prior colonoscopy, last done in 2004, and was unremarkable except for benign polyps. Denies night sweats or excessive bruising (is on blood thinner so endorsed some easy bruising). Per chart review, did see her PCP in Dec for diarrhea and was prescribed Flagyl 250 Q8H x 7 days. Initial VS at presentation: 96.9? F, HR 74, RR 20, 116/55, and 100% on RA. ED workup showed: S no leukocytosis, no anemia, creatinine 3.0 and GFR 15 (previously 2.01 and GFR 23 on 04/21/2024), lipase 309 S. UA showed 1+ protein, trace ketones, 1+ blood, trace leuks. C diff negative. Review of Systems Review of Systems: All systems reviewed & are unremarkable except as noted in HPI and below PMFSH Past Medical History Medical History Anemia in chronic renal disease Atrial fibrillation with RVR Benign essential HTN CHF (congestive heart failure) Chronic kidney disease, stage 4 (severe) HX: anticoagulation Hypokalemia Osteoporosis Paroxysmal atrial fibrillation Pneumonia Pulmonary embolism Valvular heart disease Surgical History Surgical History History of appendectomy History of lobectomy of lung Hx of cataract surgery S/P cholecystectomy Family History Family History Mother Cerebrovascular accident, Onset Age: 83 Patient's mother is Father Family history of coronary artery disease, Onset Age: 79 Patient's father is Social History Social History Social History: The patient lives home alone and she has 1 child. 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 She is . She quit smoking many years ago. She does not use any alcohol marijuana or illicit drugs. Code status full code Smoking packs per day: 1 Smoking cigarettes per day: 20.0 Years smoked: 30 Smoking pack-years: 30.00 Smoking status: Never smoker Tobacco type: cigarettes Second hand tobacco smoke exposure: No Additional smoking assessment comments: 40 to 50 years ago Alcohol intake: never Substance use: never Substance use type: does not use Do You Feel Safe in your Home?: Yes Lack of Transportation: No Lack of Food: Never True Current Housing: I Have Housing Concerned About Future Housing: No Difficulty Paying Gas/Electric Bills: No Difficulty Paying for Meds: No Currently Unemployed: No Education: High School Diploma/GED Difficulty w/ Childcare or Family Care: No Living arrangements: alone Occupation/Education: retired Gender identity (if verbalized by the patient): Female Sexual Orientation (if Verbalized by the Patient): Straight or Heterosexual Spiritual care concerns: No
[2024-05-17] MEDS: SODIUM CHLORIDE 0.9% IV 1,000 ML 125 ML IV CONT (15:21)
[2024-05-17] MEDS: ALPRAZolam (*CRX) 0.25 MG TABLET PO (17:21)
[2024-05-17] MEDS: APIXABAN 2.5 MG TABLET PO (20:07)
[2024-05-18] MEDS: SODIUM CHLORIDE 0.9% IV 1,000 ML 125 ML IV CONT ×2 (03:40→16:48)
[2024-05-18 05:56] VITALS: BP 109/42; PULSE 72; RESP 16; TEMP 36.9; O2SAT 97
[2024-05-18 05:58] LABS: Basophils Percent Auto 0.3 % (0.2-1.2); Eosinophils Absolute Auto 0.1 K/mm3 (0-0.3); Eosinophils Percent Auto 1.4 % (0-4.4); Hematocrit 34.4 % (37.0-47.0); Hemoglobin 11.1 g/dL (12.0-15.0); Immature Granulocyte Absolute 0.03 K/mm3 (0.00-0.031); Immature Granulocyte Percent A 0.5 % (0-0.5); Lymphocytes Absolute Auto 2.73 K/mm3 (0.9-3.2); Lymphocytes Percent Auto 43.1 % (18.3-44.2); Mean Corpuscular HGB Conc 32.3 g/dl (32-36); Mean Corpuscular Volume 96.1 fl (80-100); Mean Platelet Volume 11.1 fl (7.4-10.4); Monocytes Absolute Auto 0.5 K/mm3 (0.1-0.6); Monocytes Percent Auto 7.9 % (2.6-8.5); Neutrophils Percent Auto 46.8 % (45.5-73.1); Platelet Count Result 123 k/mm3 (150-375); Red Blood Count 3.58 M/mm3 (4.2-5.4); Red Cell Distribution Width 13.6 % (11.5-14.5); White Blood Count 6.3 K/mm3 (4.5-10.0)
[2024-05-18] MEDS: ONDANSETRON INJ 4 MG/2 ML VIAL IV PUSH ×2 (06:03→19:46)
[2024-05-18 06:14] LABS: Alanine Aminotransferase 15 U/L (6-35); Albumin Level 3.1 g/dL (3.5-5.1); Alkaline Phosphatase 60 U/L (38-126); Anion Gap 11 mmol/L (4-12); Aspartate Amino Transferase 23 U/L (14-36); Bilirubin,Total 0.3 mg/dL (0.2-1.3); Blood Urea Nitrogen 70 mg/dL (7-17); Calcium 8.1 mg/dL (8.4-10.2); Carbon Dioxide 12 mmol/L (22-30); Chloride 121 mmol/L (98-107); Estimated CRCL calculation 14 ml/min; Estimated Glomerular Filt Rate 20; Glucose 108 mg/dL (65-110); Potassium 4.3 mmol/L (3.4-5.0); Sodium 144 mmol/L (137-145)
[2024-05-18] MEDS: APIXABAN 2.5 MG TABLET PO ×2 (09:04→20:52)
[2024-05-18] MEDS: DICYCLOMINE HCL 10 MG CAPSULE 20 MG PO (09:04)
[2024-05-18 09:05] VITALS: BP 106/42
--- NOTE | 2024-05-18 09:19 | PM.IMPN ---
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 IV fluids: 1L bolus, 125 mL/hr subsequent FELECIA superimposed on CKD, see below has previously failed Imodium, will re-trial. add Bentyl PRN and Banatrol BID. GI consulted, awaiting recs monitor I&Os PPI Stool cultures and studies Monitor electrolytes replenish to keep K+ >4.0 and Mag >2.0 Acute on chronic renal failure creatinine 3.0 and GFR 15 previously 2.01 and GFR 23 hx of CKD stage 4 Gentle IV hydration. Avoid nephrotoxic drugs. Monitor antihypertensive drug therapy. Avoid NSAIDs. Routine CMP monitoring GFR. Monitor electrolytes especially potassium. Antibiotic doses depending on creatinine clearance. HX AFIB: resumed eliquis HX CAD: Resumed BB and Eliquis HX HTN: Resumed BB and lisinopril HX CHF: resumed chlorthalidone Code status: Full code per patient DVT prophylaxis: AFIB Stress ulcer prophylaxis: Protonix 40 daily PT/OT notes: PT/OT pending Disposition: Patient was admitted to the medical unit and continued diarrhea relief patient antidiarrheals patient was admitted for evaluation treatment by GI. PT/OT pending but will likely return home when medically stable. Time Spent With Patient Time with patient: 15 - 25 minutes Subjective Date/time seen: 05/18/24 09:19 Interval history: Admission: Medical Record 88 y/o F presents here with diarrhea with PMH of CKD, pAFib, HTN, osteoporosis, and pulmonary embolism. The patient present here for further evaluation of ongoing diarrhea. She reports diarrhea that has been ongoing for the past 3 months. Over the course of the last 3 the diarrhea has increased in frequency. Stool described as light brooks. No bile or blood in stool. Associated with generalized weakness, lack of appetite, and bowel incontinence. Had an appointment with GI on 05/30, however given progression of symptoms she elected to be seen today. Denies any recent antibiotic courses. Denies previous stool cultures. Occasional abdominal pain. She describes it as lower abdomen/pelvis, cramping, no alleviating or aggravating factors, and mild. Has taken Imodium and probiotics with only temporary relief. Has had mild unintentional weight loss in the last month - 5 lbs. Denies associated fever, chills, body aches. No previous issues with diarrhea or constipation. Has had prior colonoscopy, last done in 2004, and was unremarkable except for benign polyps. Denies night sweats or excessive bruising (is on blood thinner so endorsed some easy bruising). Per chart review, did see her PCP in Dec for diarrhea and was prescribed Flagyl 250 Q8H x 7 days. Initial VS at presentation: 96.9? F, HR 74, RR 20, 116/55, and 100% on RA. ED workup showed: S no leukocytosis, no anemia, creatinine 3.0 and GFR 15 (previously 2.01 and GFR 23 on 04/21/2024), lipase 309 S. UA showed 1+ protein, trace ketones, 1+ blood, trace leuks. C diff negative. 05/18/2024: Assumed Care Patient reported continued diarrhea even with the antidiarrheal and generalized weakness. Electrolytes stable GI consulted and stool studies pending. Patient with no other compaints. Review of Systems Review of Systems: All systems reviewed & are unremarkable except as noted in HPI and below Exam Narrative: Physical Exam: GENERAL: Alert and oriente
[2024-05-18 14:00] VITALS: BP 119/63; PULSE 118; RESP 14; TEMP 36.4; O2SAT 97
--- NOTE | 2024-05-18 15:42 | WPDGICN ---
Assessment and Plan Assessment and plan (1) Diarrhea: Code(s): R19.7 - Diarrhea, unspecified Status: Acute Assessment and Plan: chronic diarrhea, will get stool samples (c diff negative), also serology for celiac and check for EPI colonoscopy tomorrow with random colon bx (2) Dehydration: Code(s): E86.0 - Dehydration Status: Acute Assessment and Plan: treated (3) Acute on chronic renal failure: Qualifiers: Acute renal failure type: unspecified Chronic kidney disease stage: stage 4 (severe) Qualified Code(s): N17.9 - Acute kidney failure, unspecified; N18.4 - Chronic kidney disease, stage 4 (severe) Code(s): N17.9 - Acute kidney failure, unspecified; N18.9 - Chronic kidney disease, unspecified Status: Inactive Assessment and Plan: iv fluids, monitor and treat (4) History of pulmonary embolism: Code(s): Z86.711 - Personal history of pulmonary embolism Status: Acute (5) Anticoagulant long-term use: Code(s): Z79.01 - senior living (current) use of anticoagulants Status: Acute GI Consult Note Consult date/time: 05/18/24 15:42 Reason for consult: diarrhea, dehydration HPI: Mariya Shah is a 88 year old female with past medical history of CKD (baseline ~ 2), pAFib on eliquis, HTN, osteoporosis, and pulmonary embolism. She has chronic diarrhea but last 3 weeks much worse with incontinence, urgency and also post prandial diarrhea. She has become weaker and lightheaded, denies blood in stools. Stool described as light brooks. No bile or blood in stool. Denies any recent antibiotic courses or travel, no sick contact. Denies associated fever, chills, body aches. She was her PCP in Dec for diarrhea and was prescribed Flagyl . ED workup showed: creatinine 3.0, CT scan reviewed, no new findings. Last colonoscopy more than 10 years ago. Review of Systems Constitutional: Constitutional: Denies chills Eyes: Eyes: Denies blurry vision ENT: Reports Normal hearing present Cardiovascular: Cardiovascular: Denies chest pain Respiratory: Respiratory: Denies cough Gastrointestinal: Gastrointestinal: Reports diarrhea Genitourinary: Genitourinary: Denies urinary urgency Musculoskeletal: Musculoskeletal: Denies neck pain Integumentary/Breasts: Skin/Breast: Denies rash Neurologic: Denies Abnormal speech present Psychiatric: Psychiatric: Denies confusion [facility] Past Medical History Medical History (Updated 05/18/24 @ 15:47 by Josafat Prescott MD) Anemia in chronic renal disease Anticoagulant long-term use Atrial fibrillation with RVR Benign essential HTN CHF (congestive heart failure) Chronic kidney disease, stage 4 (severe) HX: anticoagulation Hypokalemia Osteoporosis Paroxysmal atrial fibrillation Pneumonia Pulmonary embolism Valvular heart disease Surgical History Surgical History History of appendectomy History of lobectomy of lung Hx of cataract surgery S/P cholecystectomy Family History Family History Mother Cerebrovascular accident, Onset Age: 83 Patient's mother is Father Family history of coronary artery disease, Onset Age: 79 Patient's father is Social History Social History Social History: The patient lives home alone and she has 1 child. 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 She is . She quit smoking many years ago. She does not use any alcohol marijuana or illicit drugs. Code status full code Smoking packs per day: 1 Smoking cigarettes per day: 20.0 Years smoked: 30 Smoking pack-years: 30.00 Smoking status: Never smoker Tobacco type: cigarettes Second hand tobacco smoke exposure: No Additional smoking assessment comments: 40 to 50 years
[2024-05-18] MEDS: polyethylene glycoL 3350 238 GM BOTTLE PO (16:53)
[2024-05-18] MEDS: BISACODYL 5 MG TABLET EC 20 MG PO (16:53)
[2024-05-18 20:50] VITALS: PULSE 74; RESP 14; O2SAT 97
[2024-05-18 20:52] VITALS: PULSE 74
[2024-05-18] MEDS: METOPROLOL SUCCINATE EXT REL 50 MG TABCR PO (20:52)
[2024-05-18 21:49] VITALS: BP 152/51; PULSE 114; RESP 16; TEMP 36.9; O2SAT 92
[2024-05-19] VITALS (8 sets, daily range): BP systolic 83–140; BP diastolic 42–58; PULSE 68–97; RESP 16–19; TEMP 35.8–36.8; O2SAT 97–100; BMI 21.3
[2024-05-19] MEDS: SODIUM CHLORIDE 0.9% IV 1,000 ML 125 ML IV CONT ×2 (00:46→08:53)
[2024-05-19 06:17] LABS: Hematocrit 37.6 % (37.0-47.0); Hemoglobin 11.8 g/dL (12.0-15.0); Mean Corpuscular HGB Conc 31.4 g/dl (32-36); Mean Corpuscular Hemoglobin 30.6 pg (26-34); Mean Corpuscular Volume 97.7 fl (80-100); Platelet Count Result 136 k/mm3 (150-375); Red Blood Count 3.85 M/mm3 (4.2-5.4); Red Cell Distribution Width 13.8 % (11.5-14.5); White Blood Count 7.4 K/mm3 (4.5-10.0)
[2024-05-19] MEDS: METOPROLOL SUCCINATE EXT REL 100 MG TABCR PO (06:28)
[2024-05-19 06:34] LABS: Alanine Aminotransferase 15 U/L (6-35); Albumin Level 3.1 g/dL (3.5-5.1); Alkaline Phosphatase 50 U/L (38-126); Anion Gap 8 mmol/L (4-12); Aspartate Amino Transferase 26 U/L (14-36); Bilirubin,Total 0.4 mg/dL (0.2-1.3); Blood Urea Nitrogen 43 mg/dL (7-17); Calcium 8.4 mg/dL (8.4-10.2); Carbon Dioxide 14 mmol/L (22-30); Chloride 121 mmol/L (98-107); Estimated CRCL calculation 16 ml/min; Estimated Glomerular Filt Rate 24; Glucose 99 mg/dL (65-110); Magnesium 1.4 mg/dL (1.6-2.3); Potassium 4.2 mmol/L (3.4-5.0); Sodium 143 mmol/L (137-145)
[2024-05-19] MEDS: APIXABAN 2.5 MG TABLET PO (08:49)
[2024-05-19] MEDS: lisinopriL 10 MG TABLET PO (08:49)
[2024-05-19] MEDS: PANTOPRAZOLE 40 MG TABLET PO (08:49)
[2024-05-19] MEDS: MAGNESIUM SULF 2 GM/WATER 50ML 2 GM/50 ML BAG IVPB (08:55)
--- NOTE | 2024-05-19 09:34 | WPDANESEPPF ---
Anes - Initial Pre Proc Eval Procedure: Operation Date: 05/19/24 16:00 Proposed Procedures p Colonoscopy - Josafat Prescott MD Date/Time: 05/19/24 09:34 Surgeon: Paulina Cook APRN Pre Op Diagnosis: ACUTE KIDNEY INJURY,DIARRHEA Patient Data Age: 88 Gender: F Height: 1.65 m Weight: 58.1 kg Last Vital Signs Temp 97 F L 05/19/24 09:32 Pulse 70 05/19/24 09:32 Resp 18 05/19/24 09:32 BP 116/48 L 05/19/24 09:32 Pulse Ox 99 05/19/24 09:32 O2 Del Method Room Air 05/19/24 09:32 Allergies Allergy/AdvReac Type Severity Reaction Status Date / Time calcitonin Allergy Intermediate eye itch Verified 05/19/24 09:27 and swelling mirabegron [From Myrbetriq] Allergy Intermediate swelling Verified 05/19/24 09:27 alendronate sodium Allergy Mild unknown Verified 05/19/24 09:27 Penicillins Allergy Mild hives Verified 05/19/24 09:27 risedronate sodium Allergy Mild unknown Verified 05/19/24 09:27 ciprofloxacin Allergy Unknown joint aches Verified 05/19/24 09:27 clonidine AdvReac Severe Hallucinati Uncoded 05/19/24 09:27 ng Home Medications Medication Instructions Recorded Confirmed Type metoprolol succinate 50 mg 50 mg PO DAILY #90 tabs 11/27/23 05/17/24 Rx tablet,extended release 24 hr lisinopril 10 mg tablet 10 mg PO DAILY #90 tabs 12/24/23 05/17/24 Rx apixaban 2.5 mg tablet (Eliquis) 2.5 mg PO BID 05/17/24 05/17/24 History chlorthalidone 25 mg tablet 25 mg PO DAILY 05/17/24 05/17/24 History metoprolol succinate 100 mg 100 mg PO DAILY 05/17/24 05/17/24 History tablet,extended release 24 hr Laboratory Tests 05/18/24 05/18/24 05/19/24 19:58 19:59 05:53 WBC 7.4 K/mm3 (4.5-10.0) RBC 3.85 L M/mm3 (4.2-5.4) Hgb 11.8 L g/dL (12.0-15.0) Hct 37.6 % (37.0-47.0) MCV 97.7 fl (80-100) MCH 30.6 pg (26-34) MCHC 31.4 L g/dl (32-36) RDW 13.8 % (11.5-14.5) Plt Count 136 L k/mm3 (150-375) MPV 11.0 H fl (7.4-10.4) Sodium 143 mmol/L (137-145) Potassium 4.2 mmol/L (3.4-5.0) Chloride 121 H mmol/L (98-107) Carbon Dioxide 14 L mmol/L (22-30) Anion Gap 8 mmol/L (4-12) BUN 43 H D mg/dL (7-17) Creatinine 2.00 H mg/dL (0.7-1.0) Estim Creat Clear Calc 16 ml/min Estimated GFR 24 L (59 - ) Glucose 99 mg/dL (65-110) Calcium 8.4 mg/dL (8.4-10.2) Magnesium 1.4 L mg/dL (1.6-2.3) Total Bilirubin 0.4 mg/dL (0.2-1.3) AST 26 U/L (14-36) ALT 15 U/L (6-35) Alkaline Phosphatase 50 U/L (38-126) Total Protein 6.0 L g/dL (6.3-8.2) Albumin 3.1 L g/dL (3.5-5.1) Stool Calprotectin Pending Stool Pancreat Elastase Pending Tiss Transglutamin IgG Pending Tiss Transglutamin IgA Pending O & P Trichrome Stain Pending O & P Concentrate Exam Pending Patient hx anesthesia problems: none Family hx anesthesia problems: none Results Review: All pre-operative results and documents have been reviewed as part of the pre-operative evaluation. [facility] Past Medical History Medical History (Updated 05/18/24 @ 15:47 by Josafat Prescott MD) Anemia in chronic renal disease Anticoagulant long-term use Atrial fibrillation with RVR Benign essential HTN CHF (congestive heart failure) Chronic kidney disease, stage 4 (severe) HX: anticoagulation Hypokalemia Osteoporosis Paroxysmal atrial fibrillation Pneumonia Pulmonary embolism Valvular heart disease Surgical History Surgical History History of appendectomy History of lobectomy of lung Hx of cataract surgery S/P cholecystectomy Family History Family History (Reviewed 05/17/24 @ 19:23 by Colt
[2024-05-19] MEDS: LACTATED RINGERS 1,000 ML 150 ML IV CONT (09:36)
--- NOTE | 2024-05-19 10:01 | PCOTNOTE ---
Recieved orders for OT evaluation. Pt is currently off the floor at a colonoscopy. Will continue to follow.
[2024-05-19] MEDS: CHOLESTYRAMINE (W/ SUGAR) 4 GM POWD.PACK PO (12:20)
--- NOTE | 2024-05-19 15:13 | PM.DS ---
DS: Admitting Diagnosis Discharge Date 05/19/2024 Admitting Diagnosis Diarrhea DS: Discharge Diagnosis Discharge Diagnosis (1) Diarrhea: Code(s): R19.7 - Diarrhea, unspecified Status: Acute DS: Summary Hospital Course Hospital Course: Patient with persistent diet, stool cultures are negative patient was seen GI had a colonoscopy essentially normal, patient remains clinically stable, discussed with GI okay to discharge patient home. Time Spent with Patient Time attestation: Total time spent providing and/or coordinating discharge services: Exam Narrative: Elderly frail Patient is comfortable, NAD HEENT: eyes are clear and none icteric LUNGS:CTA HEART: RR S1S2 ABD: BS+, Soft and nontender Lower extremities: no edema SKIN: nonjaundiced Neuro: grossly intact. DS: Data Data Completed and Pending Pending studies at discharge: Pending at discharge 05/19/24 10:24 Surgical [PTH] Routine Labs on day of discharge: Labs from last 24 hours 05/19/24 05/18/24 05/18/24 05:53 19:59 19:58 WBC 7.4 RBC 3.85 L Hgb 11.8 L Hct 37.6 MCV 97.7 MCH 30.6 MCHC 31.4 L RDW 13.8 Plt Count 136 L MPV 11.0 H Sodium 143 Potassium 4.2 Chloride 121 H Carbon Dioxide 14 L Anion Gap 8 BUN 43 H D Creatinine 2.00 H Estim Creat Clear Calc 16 Estimated GFR 24 L Glucose 99 Calcium 8.4 Magnesium 1.4 L Total Bilirubin 0.4 AST 26 ALT 15 Alkaline Phosphatase 50 Total Protein 6.0 L Albumin 3.1 L Stool Calprotectin Pending Stool Pancreat Elastase Pending Tiss Transglutamin IgG Pending Tiss Transglutamin IgA Pending O & P Trichrome Stain Pending O & P Concentrate Exam Pending Discharge Plan Discharge Attending physician on discharge: Gurdeep Stockton Consulting providers: Josafat Prescott; Paulina Cook; Hill Catalan; Myla Jernigan; Miguel Marshall Discharging Clinician: Gurdeep Stockton Patient Disposition: Home, Self-Care Activity: as tolerated Diet: heart healthy Discharge Instructions: patient to follow up with her primary care provider as soon as possible, patient is instructed if any symptoms redevelop to go to nearest ER. Patient Instructions: Antibiotic Form, Apixaban (By mouth) Stand Alone Forms: General Discharge Information Follow-up/Referrals: Janina Ordonez MD [Primary Care Provider] - Discharge Medications: New loperamide 2 mg Capsule 2 mg PO PRN PRN (Reason: Diarrhea) Qty: 30 0RF pantoprazole 40 mg Tablet,Delayed Release (Dr/Ec) 40 mg PO QAM Qty: 30 0RF dicyclomine 10 mg Capsule 20 mg PO QID PRN (Reason: Abdominal Cramping) Qty: 30 0RF cholestyramine (with sugar) 4 gram Powder In Packet 4 g PO QAM@1100 Qty: 30 0RF ondansetron 4 mg tablet,disintegrating 4 mg PO Q6H Qty: 20 0RF Continued lisinopril 10 mg tablet 10 mg PO DAILY Qty: 90 3RF chlorthalidone 25 mg Tablet 25 mg PO DAILY metoprolol succinate 100 mg tablet extended release 24 hr 100 mg PO DAILY Rx Instructions: TAKE 1 TABLET BY MOUTH DAILY Eliquis 2.5 mg tablet 2.5 mg PO BID Rx Instructions: TAKE 1 TABLET BY MOUTH EVERY 12 HOURS metoprolol succinate 50 mg tablet extended release 24 hr 50 mg PO DAILY Qty: 90 1RF Date of admission: 05/18/24 12:32 Primary Care Provider: Janina Ordonez Admitting Provider: Gurdeep Stockton Attending physician on admission: Gurdeep Stockton Condition: Stable
[2024-05-21 07:43] LABS: Tissue Transglutaminase IgA Ab <1.0 U/mL; Tissue Transglutaminase IgG Ab <1.0 U/mL
[2024-05-24 17:24] LABS: Calprotectin, Stool <5 mcg/g
[2024-05-26 18:03] LABS: Pancreatic Elastase, Stool <15 mcg/g
== END 2024-05-19 15:40 | disposition home or self-care (01) | DRG 683 ==
LOC: ANHED 07:23 → ANH3MEDSUR 15:01
PROVIDERS: Internal Medicine Gastroenterology; Nurse Practitioner Family; Student in an Organized Health Care Education/Training Program; Admitting Provider Family Medicine; Emergency Provider Emergency Medicine; PCP Family Medicine; Visit Provider Family Medicine
PROC: 0DJD8ZZ Inspection of Lower Intestinal Tract, Via Natural or Artificial Opening Endoscopic (ICD-10-PCS; CPT 45378; principal; 2024-05-19 16:00)
DX: N17.9 Acute kidney failure, unspecified (principal); I13.0 Hypertensive heart and chronic kidney disease with heart failure and stage 1 through stage 4 chronic kidney disease, or unspecified chronic kidney disease; N18.4 Chronic kidney disease, stage 4 (severe); I48.0 Paroxysmal atrial fibrillation; R19.7 Diarrhea, unspecified; E86.0 Dehydration; D63.1 Anemia in chronic kidney disease; K57.30 Diverticulosis of large intestine without perforation or abscess without bleeding; K63.5 Polyp of colon; M81.0 Age-related osteoporosis without current pathological fracture; Z86.711 Personal history of pulmonary embolism; Z87.891 Personal history of nicotine dependence; Z79.01 Long term (current) use of anticoagulants; Z86.010 Personal history of colon polyps
CPT/HCPCS: 36415; 74176; 80053; 81001; 82653; 83690; 83735; 83993; 85025; 85027; 86364; 87177; 87209; 87493; 88305; 96361; 96374; 97165; 99285; A9270; G0378; J2405; J2704; J3475; J7030; J7120